=== PATIENT | female | born 1950 | race Caucasian/White ===

== ENCOUNTER → 2017-10-08 09:42 | Outpatient (CLI) | payer BC, SELFPAY ==
--- NOTE | 2017-10-08 09:45 | RAD_ITS ---
STUDY: X-RAY - LEFT KNEE REASON FOR EXAM: Female, 66 years old. Medial knee pain. TECHNIQUE: 4 view(s) of the knee. COMPARISON: Comparison is made with prior examination dated July 31, 2017. FINDINGS: The patient is status post medial unicompartmental arthroplasty. There is good alignment. The soft tissue structures are unremarkable. RAD/Knee 4 or More Views IMPRESSION: Stable appearance of the medial unicompartmental arthroplasty. Electronically Signed: Darryl Soler MD at 15:49 EST Tel [phone], Service support ,
== END ==
PROVIDERS: Family Provider Family Medicine; PCP Family Medicine; Visit Provider Orthopaedic Surgery
DX: M25.562 Pain in left knee (principal)
CPT/HCPCS: 73564

== ENCOUNTER 2017-10-25 09:00 | Outpatient (RCR) | payer BC, SELFPAY ==
--- NOTE | 2017-10-15 08:32 | HP.PTEVAL_ITS ---
Patient's Visit Information ALCIDES BUTT is a 66 year old F referred to Physical Therapy by DO GOSIA Reyze with a diagnosis of Left Knee Pain. Date of Evaluation: 10/15/17 Physical Therapist: Nani Yao - Visit Plan Frequency: 2x /Week Duration: 1 Week Plan: Patient presents s/p left TKR 04/10/17- she has pain in the posterior knee - focus on ROM (extn) and stretching- with strength as needed - Subjective Subjective: Left knee in the back has been tight since July- the last 2 days have been okay but its not good. No radiating pain just tightness. Worst : 10/10 Agg: being on her feet, walking Eases: propping it up and stretching Best: 0/10. X-rays were good- does have a little cement floating but doesn't think its related. 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 Sleep : not disturbed. - Objective Posture: FH, RS. Gait: slightly antalgic- decreased stance on the left LE- poor heel/toe pattern due to decreased ROM. Stairs: asc/desc 8 recip with 2 HR and a poor pattern. HR/TR: able. SLS: 10 sec without LOB. Palpation: tender along posterior knee. ROM: 10-130 degrees. Strength: ankle: 5/5, Knee: 4+/5, Hip: 4+/5 throughout core: fair. Flex: HS: severe, Gastroc: severe - Goals Goal 1:: Patient will be I with HEP and progression Goal Time Frame: 4-6 Weeks Goal 2:: Patient will demo moderate restriction in deficit areas of the left LE Goal Time Frame: 4-6 Weeks Goal 3:: Patient will ambulate >300 feet with a normalized gait pattern Goal Time Frame: 4-6 Weeks Goal 4:: Aniyah will report 0/10 pain for 1 week Goal Time Frame: 4-6 Weeks - Rehabilitation Potential Physical Therapy Diagnosis: Patient presents wtih hypmobility- she has decreased ROM, strength and flexibility leading to abnormal gait and increased pain with ADL's. Rehabilitation Potential: Good - Anticipated Interventions Patient/Client Instruction: Educate patient on: Benefits of Fitness Program For the Purpose of:: To improve performance and independence with ADL's Therapeutic Exercise to Include: Strength training, Endurance training, Balance training, Agility training, Body mechanics, Postural training, Flexibilty training, Gait and locomotor training, Passive ROM, Active ROM, Dynamic Lumbar Stabilization For the Purpose of:: To improve muscle performance and motor function TENS: Yes Cryotherapy (ice pack, ice massage): Yes Thermo therapy (hot pack): Yes Ultrasound (thermal/non thermal): No For the Purpose of:: To decrease pain, To decrease swelling/inflammation Thank you for the opportunity to evaluate your patient. For Medicare and Medicare HMO plans, please review the plan of care and approve it. It will need to be FAXED BACK to us at [phone] for Medicare purposes. Please let me know if there are questions or concerns regarding this plan of care. Physician Signature: Date:
--- NOTE | 2017-12-31 14:16 | HP.PT.NRP ---
HP - Discharge Summary (1) - Patient Information ALCIDES BUTT was seen in my office for initial evaluation on 10/15/17. The following Plan of Care was established for this patient: Initial Frequency: 2x /Week Initial Duration: 1 Week - Anticipated Interventions Patient/Client Instruction: Educate patient on: Benefits of Fitness Program For the Purpose of:: To improve performance and independence with ADL's Therapeutic Exercise to Include: Strength training, Endurance training, Balance training, Agility training, Body mechanics, Postural training, Flexibilty training, Gait and locomotor training, Passive ROM, Active ROM, Dynamic Lumbar Stabilization For the Purpose of:: To improve muscle performance and motor function TENS: Yes Cryotherapy (ice pack, ice massage): Yes Thermo therapy (hot pack): Yes Ultrasound (thermal/non thermal): No For the Purpose of:: To decrease pain, To decrease swelling/inflammation This patient was last seen in our office . Pertinent comments regarding their Physical therapy will appear below: Patient has not returned for 60 days and is appropriate for discharge. Return to MD for further evaluation as needed. At this point I will be discontinuing this patient from physical therapy. I would be happy to see this patient again in the future if found appropriate by the physician. Thank you! Nani Yao
== END 2017-10-25 19:00 | disposition home or self-care (01) ==
LOC: PT 09:00
PROVIDERS: Family Provider Family Medicine; PCP Family Medicine; Visit Provider Orthopaedic Surgery
DX: M70.52 Other bursitis of knee, left knee (principal)
CPT/HCPCS: 97110; 97161

== ENCOUNTER → 2018-03-13 11:17 | Outpatient (CLI) | payer MEDICARE, BC, SELFPAY ==
--- NOTE | 2018-03-13 11:24 | BD_ITS ---
STUDY: DUAL ENERGY X-RAY ABSORPTIOMETRY / DXA REASON FOR EXAM: Female, 67 years old. The patient is postmenopausal. Loss of height. TECHNIQUE: Bone Mineral Density (BMD) measurements of lumbar spine and bilateral hips were obtained. COMPARISON: Comparison is made with prior study dated November 11, 2015. FINDINGS: Lumbar Spine (L1-L4): g/cm2 (0.842) / T-score (-2.7) / Z-score (-1.1) Findings are suggestive of osteoporosis with a high fracture risk. Left Femur Total: g/cm2 (0.762) / T-score (-1.9) / Z-score (-0.6) Left Femoral Neck: g/cm2 (0.693) / T-score (-2.5) / Z-score (-0.9) Right Femur Total: g/cm2 (0.781) / T-score (-1.8) / Z-score (-0.5) Right Femoral Neck: g/cm2 (0.694) / T-score (-2.5) / Z-score (-0.9) The T-Scores on the most recent prior examination were: Lumbar Spine (L1-L4): There has been worsening of bone density since the previous examination. Left Femur Total: which represents a worsening of 5.3%. Right Femur Total: which represents a worsening of 0.5%. BD/Dexa Bone Density Study IMPRESSION: The patient is considered osteoporotic as outlined below according to World [employer] (WHO) criteria with a high fracture risk. There has been worsening of bone density since the previous examination. Reference Information: The T-score is the number of standard deviations above or below the standard which is normal for young adults at their peak bone mineral density. The World Health Organization (WHO) interprets the T-scores as follows: Above -1 Normal bone density Between -1 and -2.5 Osteopenia Equal to / or below -2.5 Osteoporosis As a practical clinical guideline, osteopenia may be graded as follows: Mild -1 through -1.5 Moderate -1.6 through -2.0 Severe -2.1 through -2.4 The Z-score is the number of standard deviations above or below age-matched controls. A Z-score of less than -1.5 would be considered abnormal. References: 1. NIH Osteoporosis and Related Bone Diseases http://www.osteo.org 2. International Society for Clinical Densitometry http://www.iscd.org 3. National Osteoporosis Foundation http://www.nof.org Electronically Signed: Darryl Soler MD at 14:48 EDT Tel [phone], Service support ,
--- NOTE | 2018-03-13 11:24 | BI_ITS ---
MAMMOGRAPHY - BILATERAL SCREENING REASON FOR EXAM: Female, 67 years old. Routine annual screening examination. PERTINENT HISTORY: Non-contributory. TECHNIQUE: Digital bilateral breast tiburcio (3D mammographic acquisition) in the CC and MLO projections. 2-D mediolateral oblique (MLO) and craniocaudad (CC) views of both breasts were obtained. CAD: Full Field Digital Mammography with Computer Added Detection was performed. COMPARISON: Comparison is made with prior study dated November 10, 2014 and December 16, 2012. FINDINGS: Breast Composition: There are scattered areas of fibroglandular density. There are no dominant masses or suspicious calcifications. No other significant abnormalities are identified. There has been no significant change since the prior study. BI/SCREENING MAMM (CAD), BILAT IMPRESSION: Stable bilateral screening mammogram. Yearly follow-up mammogram recommended. (A) ASSESSMENT CATEGORY: BIRADS Category 1: Negative. A letter regarding these results will be sent to the patient by the facility within 30 days. Approximately 10% of breast cancers are not detected by mammography. A normal mammogram should not delay biopsy of a clinically suspicious abnormality. [id number] Electronically Signed: Darryl Soler MD at 12:53 EDT Tel [phone], Service support ,
== END ==
PROVIDERS: Family Provider Family Medicine; PCP Family Medicine; Visit Provider Obstetrics & Gynecology
DX: Z12.31 Encounter for screening mammogram for malignant neoplasm of breast (principal); Z13.820 Encounter for screening for osteoporosis; M85.89 Other specified disorders of bone density and structure, multiple sites
CPT/HCPCS: 77063; 77067; 77080

== ENCOUNTER → 2018-03-21 09:41 | Outpatient (CLI) | payer MEDICARE, BC, SELFPAY ==
[2018-03-21 11:32] LABS: Calcium,Total 8.9 mg/dL (8.5-10.1)
[2018-03-22 08:56] LABS: Vitamin D,25 Hydroxy 22.3 ng/mL (29.95-100.01)
== END ==
PROVIDERS: Family Provider Family Medicine; PCP Family Medicine; Visit Provider Obstetrics & Gynecology
DX: M81.0 Age-related osteoporosis without current pathological fracture (principal)
CPT/HCPCS: 36415; 82306; 82310

== ENCOUNTER → 2018-05-21 11:40 | Outpatient (CLI) | payer MEDICARE, BC, SELFPAY ==
[2018-05-21 14:51] LABS: Vitamin D,25 Hydroxy 51.2 ng/mL (29.95-100.01)
== END ==
PROVIDERS: Visit Provider Obstetrics & Gynecology
DX: E55.9 Vitamin D deficiency, unspecified (principal)
CPT/HCPCS: 36415; 82306

== ENCOUNTER → 2018-08-15 09:20 | Outpatient (CLI) | payer MEDICARE, BC, SELFPAY ==
[2018-08-15 12:34] LABS: Vitamin D,25 Hydroxy 68.6 ng/mL (29.95-100.01)
[2018-08-15 12:47] LABS: Anion Gap 9 (5-15); BUN 17 mg/dL (7-18); BUN/Creat Ratio 18.9 RATIO (10-20); Calcium,Total 8.5 mg/dL (8.5-10.1); Chloride 106 mmol/L (98-107); Cholesterol 245 mg/dL (200); EST Glomerular Filtration Rate 66 mL/min (>60); Est Glom Filt Rate - Afr Amer 80 mL/min (>60); Glucose 100 mg/dL (74-106); High Density Lipoprotein 48 mg/dL; Sodium Level 141 mmol/L (136-145); Triglycerides 190 mg/dL; Very Low Density Lipoprotein 38 mg/dL (5-40)
== END ==
PROVIDERS: Family Provider Family Medicine; PCP Family Medicine; Visit Provider Family Medicine
DX: I10 Essential (primary) hypertension (principal); E55.9 Vitamin D deficiency, unspecified
CPT/HCPCS: 36415; 80048; 80061; 82306

== ENCOUNTER → 2018-10-10 09:19 | Outpatient (CLI) | payer MEDICARE, BC, SELFPAY ==
[2018-10-10 10:31] LABS: Cholesterol 212 mg/dL (200); High Density Lipoprotein 43 mg/dL; Triglycerides 235 mg/dL; Very Low Density Lipoprotein 47 mg/dL (5-40)
== END ==
PROVIDERS: Family Provider Family Medicine; PCP Family Medicine; Referring Provider Family Medicine; Visit Provider Family Medicine
DX: I10 Essential (primary) hypertension (principal)
CPT/HCPCS: 36415; 80061

== ENCOUNTER → 2018-10-15 10:10 | Outpatient (CLI) | payer MEDICARE, BC, SELFPAY ==
--- NOTE | 2018-10-15 10:17 | RAD_ITS ---
STUDY: X-RAY - LUMBAR SPINE REASON FOR EXAM: Female, 67 years old. Pain TECHNIQUE: 5 view(s) of the lumbar spine were obtained. COMPARISON: 12/08/2016 FINDINGS: There is no evidence of fracture or dislocation in the lumbar spine. The vertebral body heights and disc spaces are well-maintained. There are no significant degenerative changes. RAD/L/S Spine Min 4 Views IMPRESSION: Negative radiographs of the lumbar spine. Electronically Signed: Melvin Kelly, at 21:38 EST Tel , Service support ,
== END ==
PROVIDERS: Family Provider Family Medicine; PCP Family Medicine; Referring Provider Family Medicine; Visit Provider Family Medicine
DX: S39.012A Strain of muscle, fascia and tendon of lower back, initial encounter (principal)
CPT/HCPCS: 72110

== ENCOUNTER → 2019-03-31 | Outpatient (CLI) | payer MEDICARE, BC, SELFPAY ==
[2019-03-31 12:56] LABS: Anion Gap 4 (5-15); BUN 15 mg/dL (7-18); BUN/Creat Ratio 19.1 RATIO (10-20); Calcium,Total 8.6 mg/dL (8.5-10.1); Chloride 111 mmol/L (98-107); Cholesterol 192 mg/dL (200); Creatinine, Serum 0.79 mg/dL (0.55-1.02); EST Glomerular Filtration Rate 77 mL/min (>60); Est Glom Filt Rate - Afr Amer 93 mL/min (>60); Glucose 87 mg/dL (74-106); High Density Lipoprotein 59 mg/dL; Potassium 3.9 mmol/L (3.5-5.1); Sodium Level 144 mmol/L (136-145); Triglycerides 60 mg/dL; Very Low Density Lipoprotein 12 mg/dL (5-40)
== END | disposition home or self-care (01) ==
LOC: MTLAB 11:00
PROVIDERS: Family Provider Family Medicine; PCP Family Medicine; Referring Provider Family Medicine; Visit Provider Family Medicine
DX: I10 Essential (primary) hypertension (principal)
CPT/HCPCS: 36415; 80048; 80061

== ENCOUNTER → 2019-08-27 11:52 | Outpatient (CLI) | payer MEDICARE, BC, SELFPAY ==
--- NOTE | 2019-08-27 11:58 | RAD_ITS ---
STUDY: X-RAY - LEFT KNEE REASON FOR EXAM: Female, 68 years old. Left knee pain, surgery about 2-3 yrs. Ago TECHNIQUE: 4 view(s) of the knee. COMPARISON: Previous study of 10/08/2017 FINDINGS: Status post medial and a arthroplasty changes of the left knee are noted. Implants appear in good position. There is no evidence of implant loosening or new associated fracture or dislocation. There are mild degenerative changes of the patellofemoral compartment. RAD/Knee 4 or More Views IMPRESSION: Status post medial hemiarthroplasty changes noted with implants appearing in good position. There is no evidence of implant loosening or new associated fracture or dislocation. There are mild degenerative changes of the patellofemoral compartment. Findings are stable in the interval. Electronically Signed: Alejandro Catherine MD at 22:45 EST , Service support ,
== END ==
PROVIDERS: Family Provider Family Medicine; PCP Family Medicine; Referring Provider Family Medicine; Visit Provider Family Medicine
DX: M25.562 Pain in left knee (principal)
CPT/HCPCS: 73564

== ENCOUNTER → 2019-12-26 11:05 | Outpatient (CLI) | payer MEDICARE, BC, SELFPAY ==
[2019-12-26 12:52] LABS: Absolute Lymphocyte Count 1.99 X10^3/uL (0.83-4.51); Absolute Neutrophil Count 4.4 X10^3/uL (2.0-7.7); Basophil# 0.04 X10^3/uL; Basophil% 0.5 % (0-1); Eosinophil# 0.22 X10^3/uL; Hematocrit 43.7 % (37-47); Lymphocyte # 1.99 X10^3/ul (4.0); Lymphocyte % 27.3 % (19-41); Mean Corpuscular Hgb 29.6 pg (27.0-32.0); Mean Corpuscular Volume 92.4 fL (81-99); Mean Platelet Vol. 10.1 fl (6.2-12.0); Monocyte# 0.61 X10^3/uL; Monocyte% 8.4 % (0-10); NRBC Flagged by Analyzer 0 % (0-5); Neutrophil % 60.5 % (47-70); Platelet Count 230 K/mm3 (150-450); RBC Distribution Width CV 12.1 % (11.6-14.6); RBC Distribution Width SD 41.4 fl (35.1-43.9); Red Blood Count 4.73 M/mm3 (4.2-5.4); White Blood Count 7.3 K/mm3 (4.4-11.0)
[2019-12-26 13:37] LABS: Anion Gap 5 (5-15); BUN 20 mg/dL (7-18); BUN/Creat Ratio 22.8 RATIO (10-20); Calcium,Total 9.2 mg/dL (8.5-10.1); Chloride 110 mmol/L (98-107); Creatinine, Serum 0.88 mg/dL (0.55-1.02); EST Glomerular Filtration Rate 68 mL/min (>60); Est Glom Filt Rate - Afr Amer 82 mL/min (>60); Free T3 2.6 pg/mL (2.18-3.98); Glucose 105 mg/dL (74-106); Potassium 4.1 mmol/L (3.5-5.1); Sodium Level 142 mmol/L (136-145); T4 Total, Thyroxin 8.9 ug/dL (4.8-13.9); Thyroid Stim Hormone (TSH) 1.54 uIU/mL (0.358-3.74)
== END ==
PROVIDERS: PCP Family Medicine; Visit Provider Family Medicine
DX: R63.5 Abnormal weight gain (principal); R53.83 Other fatigue
CPT/HCPCS: 36415; 80048; 84436; 84443; 84481; 85025

== ENCOUNTER → 2020-10-06 10:53 | Outpatient (CLI) | payer MEDICARE, OTHER, SELFPAY ==
--- NOTE | 2020-10-06 10:59 | RAD_ITS ---
STUDY: X-RAY - LEFT KNEE REASON FOR EXAM: Left knee pain, surgery in 2017. TECHNIQUE: 4 view(s) of the knee. COMPARISON: Radiographs 08/27/2019. FINDINGS: There is osteopenia. Normal visualized distal femur. Normal visualized proximal tibia and fibula. Normal proximal tibiofibular articulation. There is a medial femorotibial unicompartmental arthroplasty without evidence of complication. There is a small intra-articular body in the lateral femorotibial compartment. There are small marginal osteophytes without substantial joint space narrowing of the patellofemoral articulation. The soft tissue structures are unremarkable. RAD/Knee 4 or More Views IMPRESSION: Uncomplicated medial femorotibial unicompartmental arthroplasty. Small marginal osteophytes of the patellofemoral compartment. Small intra-articular body in the lateral femorotibial compartment. Electronically Signed: Larry Rosas MD at 12:42 EST Tel , Service support ,
== END ==
PROVIDERS: PCP Family Medicine; Referring Provider Family Medicine; Visit Provider Family Medicine
DX: M25.562 Pain in left knee (principal)
CPT/HCPCS: 73564

== ENCOUNTER 2021-11-30 14:04 | Outpatient (CLI) | payer MEDICARE, OTHER, SELFPAY ==
[2021-11-30 15:16] LABS: Absolute Lymphocyte Count 1.97 X10^3/uL (0.83-4.51); Absolute Neutrophil Count 4.7 X10^3/uL (2.0-7.7); Basophil# 0.05 X10^3/uL; Basophil% 0.7 % (0-1); Eosinophil# 0.26 X10^3/uL; Eosinophils% 3.5 % (0-5); Hematocrit 43.4 % (37-47); Hemoglobin 14.1 g/dL (12.0-15.0); Lymphocyte # 1.97 X10^3/ul (0.83-4.51); Lymphocyte % 26.6 % (19-41); Mean Corp Hgb Conc 32.5 g/dL (32-36); Mean Corpuscular Hgb 29.4 pg (27.0-32.0); Mean Corpuscular Volume 90.4 fL (81-99); Mean Platelet Vol. 10.1 fl (6.2-12.0); Monocyte# 0.41 X10^3/uL; Monocyte% 5.5 % (0-10); NRBC Flagged by Analyzer 0 % (0-5); Neutrophil % 63.6 % (47-70); Platelet Count 226 K/mm3 (150-450); RBC Distribution Width CV 12.5 % (11.6-14.6); RBC Distribution Width SD 41.2 fl (35.1-43.9); White Blood Count 7.4 K/mm3 (4.4-11.0)
== END 2021-11-30 23:59 | disposition home or self-care (01) ==
LOC: MFPLAB 14:05
PROVIDERS: PCP Family Medicine; Referring Provider Family Medicine; Visit Provider Family Medicine
DX: D64.9 Anemia, unspecified (principal)
CPT/HCPCS: 36415; 85025

== ENCOUNTER → 2022-04-26 | Outpatient (CLI) | payer MEDICARE, OTHER, SELFPAY | END | disposition home or self-care (01) | LOC: LABSPEC 12:15 | PROVIDERS: PCP Family Medicine; Referring Provider Family Medicine; Visit Provider Family Medicine | DX: N39.0 Urinary tract infection, site not specified (principal) | CPT/HCPCS: 87077; 87086; 87088; 87186 ==

== ENCOUNTER → 2022-08-24 | Outpatient (CLI) | payer MEDICARE, OTHER, SELFPAY | END | disposition home or self-care (01) | LOC: LABSPEC 15:18 | PROVIDERS: PCP Family Medicine; Referring Provider Family Medicine; Visit Provider Family Medicine | DX: R10.9 Unspecified abdominal pain (principal) | CPT/HCPCS: 87086; 87088 ==

== ENCOUNTER → 2022-10-03 | Outpatient (CLI) | payer MEDICARE, OTHER, SELFPAY ==
--- NOTE | 2022-10-03 17:00 | RAD_ITS ---
EXAM: XR LUMBOSACRAL SPINE, 4 OR 5 VIEWS CLINICAL INDICATION: LUMBAR STRAIN TECHNIQUE: Frontal, lateral and bilateral oblique views of the lumbar spine. This report was created using [employer] report generation technology. COMPARISON: None. FINDINGS: VERTEBRAE: Unremarkable. Preservation of the normal lumbar lordosis. No significant facet arthropathy. No acute or healing fracture or malalignment. No pars interarticularis defects. DISC SPACES: Relatively mild degenerative changes of the spine at multiple levels for age. SOFT TISSUES: Soft tissues of the abdomen are unremarkable. GASTROINTESTINAL TRACT: Unremarkable as visualized. Included bowel gas pattern is non-obstructive. RAD/L/S Spine Min 4 Views IMPRESSION: No acute or healing fracture or malalignment. No findings to explain the clinical presentation. Electronically Signed: Alvino Marroquin MD at 2:22 EST ,
== END | disposition home or self-care (01) ==
LOC: MTRAD 16:59
PROVIDERS: PCP Family Medicine; Referring Provider Family Medicine; Visit Provider Family Medicine
DX: S39.012A Strain of muscle, fascia and tendon of lower back, initial encounter (principal)
CPT/HCPCS: 72110

== ENCOUNTER 2022-10-11 13:00 | Outpatient (RCR) | payer MEDICARE, OTHER, SELFPAY ==
--- NOTE | 2022-10-05 16:56 | HP.PTEVAL ---
Patient's Visit Information ALCIDES BUTT is a 71 year old F referred to Physical Therapy by Dr. Cindy Larsen MD with a diagnosis of lumbar strain. Date of Evaluation: 10/05/22 Physical Therapist: Emil Henry, EMIL, OCS, CSCS - Visit Plan Frequency: 2x /Week Duration: 4-6 Weeks Plan: 2x/week for 3-6 weeks...as long as pain stays away, treat with mat based LB and pelvic ROM exercises and core strength progressing to I as tolerated. Let EG know if pain returns - Subjective R LBP into buttock for two months starting insidiously. had meds which helped. Cortisone shot 2 days ago which really helped 100% for last two days. No leg symptoms otherwise. Putting pressure on R leg was the issue. Pain was worse walking. Sitting was comfortable. When it was flared up she could not lie on R side. Was getting 3 hours. 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 Works outside when she can. Was pushing through. Basic aDLs are good. - Pain LBP Pain Intensity (Out of 10): 0 Pain Intensity Range: 0, 9 - Objective Walks into PT easily and I, transfers bed adn chair without pain. Steps reciprocal with one rail easily. Poor pelvic movement, Lumbar movement max limited ext and flexion without pain, SB min limited without pain. psoas and quads mod tight. No pain with PA pressure lumbar or thoracic. reflexes 2./3 patella adn achilles. LE AROM WFL hips knees and ankles. sensation LE WNL to gross light touch. Strength hip ext 3, abd 3+, flexion 3+, kneeflex/ext 4- and ankles 4 b without myotomal abnormalities - Balance/Special Test Scores Oswestry Low Back Score: 12 - Goals Goal 1:: I approp HEP of core strength, ROM pelvis and spine and psoas stretches to manage condition. Goal Time Frame: 4-6 Weeks Goal 2:: Patient maintain no pain for 3 weeks Goal Time Frame: 4-6 Weeks Goal 3:: Pt feel 100% back to normal with activities and no fear of relapse Goal Time Frame: 4-6 Weeks Goal 4:: oswestry score 3 or better Goal Time Frame: 4-6 Weeks - Rehabilitation Potential Physical Therapy Diagnosis: lumbar strain improved with injection, weakness and tightness may have contributed. Rehabilitation Potential: Fair - Anticipated Interventions Patient/Client Instruction: Educate patient on: Condition, Plan of Care For the Purpose of:: To decrease pain, To increase ROM, To improve nutrient delivery to tissue, To improve muscle performance and motor function, To increase tolerance to activity/condition/position Therapeutic Exercise to Include: Strength training, Flexibilty training, Passive ROM, Active ROM, Dynamic Lumbar Stabilization For the Purpose of:: To decrease pain, To increase ROM, To improve nutrient delivery to tissue, To improve muscle performance and motor function, To increase tolerance to activity/condition/position Manual Therapy Techniques to Include: Mobilization, Soft tissue mobilization For the Purpose of:: To decrease pain, To increase ROM, To improve nutrient delivery to tissue Thank you for the opportunity to evaluate your patient. For Medicare and Medicare HMO plans, please review the plan of care and approve it. It will need to be FAXED BACK to us at [phone] for Medicare purposes. For Medicare only, by signing this I certify the plan of care. Please let me know if there are questions or concerns regarding this plan of care. Physician Signature: Date:
--- NOTE | 2022-10-19 15:52 | HP.PT.NRP ---
ALCIDES BUTT was seen in my office for initial evaluation on 10/05/22. The following Plan of Care was established for this patient: Initial Frequency: 2x /Week Initial Duration: 4-6 Weeks Patient/Client Instruction: Educate patient on: Condition, Plan of Care For the Purpose of:: To decrease pain, To increase ROM, To improve nutrient delivery to tissue, To improve muscle performance and motor function, To increase tolerance to activity/condition/position Therapeutic Exercise to Include: Strength training, Flexibilty training, Passive ROM, Active ROM, Dynamic Lumbar Stabilization For the Purpose of:: To decrease pain, To increase ROM, To improve nutrient delivery to tissue, To improve muscle performance and motor function, To increase tolerance to activity/condition/position Manual Therapy Techniques to Include: Mobilization, Soft tissue mobilization For the Purpose of:: To decrease pain, To increase ROM, To improve nutrient delivery to tissue This patient was last seen in our office 10/11/22. Pertinent comments regarding their Physical therapy will appear below: Pt seen 2 visits of POC and was feeling best she had in months, stretches really helped. She has called to cancel the rest of her visits as she is feeling better. At this point I will be discontinuing this patient from physical therapy. I would be happy to see this patient again in the future if found appropriate by the physician. Thank you! Emil Henry, DPT, OCS, CSCS Balance/Gait/Functional tests - Balance/Special Test Scores Oswestry Low Back Score: 12
== END 2022-10-11 19:00 | disposition home or self-care (01) ==
LOC: PT 13:00
PROVIDERS: PCP Family Medicine; Referring Provider Family Medicine; Visit Provider Family Medicine
DX: S39.012A Strain of muscle, fascia and tendon of lower back, initial encounter (principal)
CPT/HCPCS: 97110; 97161

== ENCOUNTER 2023-07-10 18:13 | Emergency (ER) | payer MEDICARE, OTHER, SELFPAY ==
[2023-07-10 18:14] VITALS: BP 148/65; PULSE 108; RESP 18; TEMP 36.7; O2SAT 96; BMI 25.9
--- NOTE | 2023-07-10 18:29 | EKG12_ITS ---
Test Reason : DYSRHYTHMIA Blood Pressure : / mmHG Vent. Rate : 102 BPM Atrial Rate : 102 BPM P-R Int : 178 ms QRS Dur : 074 ms QT Int : 310 ms P-R-T Axes : 043 028 052 degrees QTc Int : 404 ms Sinus tachycardia with Premature supraventricular complexes Otherwise normal ECG Confirmed by JOANIE NAM MD ([id number]), production editor JORDIN VALENZUELA ([id number]) on 07/12/2023 9:19:42 AM Also confirmed by JOANIE NAM MD ([id number]), production editor JORDIN VALENZUELA ([id number]) on 07/16/2023 11:03:15 AM Referred By: Confirmed By:JOANIE NAM MD
--- NOTE | 2023-07-10 18:31 | EDS_ITS ---
HPI History of Present Illness Chief Complaint: Weakness Narrative Narrative: 72-year-old female has had 3 days of generalized weakness. She states she is mostly wanted to lie down in bed. She vomited once this morning and had 2 episodes of nonbloody diarrhea. She does not feel nauseated now and is tolerated eating and drinking since then. She denies cough or congestion, chest pain, shortness of breath, abdominal or flank pain, or urinary symptoms. Today she got up to answer the phone and felt weak and slid down onto her bottom and called EMS. Denies head injury or LOC. She states the only medication she uses is eyedrops for history of a retinal tear. PFSH [facility] Medical History Ejection fraction < 50% Hypertension manipulation under anesthesia Home Medications lisinopril 10 mg tablet 5 mg PO DAILY 05/14/16 [History Last Taken 04/10/17 05:30 5 MG] Allergy/AdvReac Type Severity Reaction Status Date / Time morphine AdvReac Vomiting Verified 07/10/23 18:14 Family History Mother Hypertension Surgical History H/O hysterectomy for benign disease History of tonsillectomy History of total left knee replacement History of total right knee replacement Hx of cholecystectomy retina detachment of right eye S/P appendectomy Social History (Updated 10/11/17 @ 11:06 by Manuel Cornejo DO) Smoking Status: Never smoker ROS ROS ED ROS Narrative Constitutional: Negative for fever, chills. ENT: Negative for sore throat, rhinorrhea. CVS: Negative for palpitations, chest pain, syncope. Respiratory: Negative for shortness of breath, cough. GI: Positive for nausea, vomiting, diarrhea. Negative for abdominal pain, constipation, melena, hematochezia. : Negative for dysuria, hematuria or frequency. Neuro: Negative for headache. EXAM Physical Exam Narrative Exam Narrative: CONST: Patient sitting in no acute distress. EYES: Normal inspection. NECK: Normal inspection. RESP: No respiratory distress, CTAB. CVS: Tachycardic around 105 bpm with regular rhythm, no murmur, no gallop. ABD: Soft and nontender, no guarding or rebound, nondistended. SKIN: Color normal, no rash, warm, dry, intact. EXTREMITIES: Normal appearance, no pedal edema. NEURO: Oriented x4. PSYCH: Normal affect. Const Vital Signs: 07/10/23 18:14 07/10/23 18:24 Temperature 98.0 F Temperature Source Oral Pulse Rate 108 H Respiratory Rate 18 Respiratory Effort Normal Non-Labored Respiratory Pattern Normal Blood Pressure 148/65 H Blood Pressure Mean 92 Pulse Ox 96 Oxygen Delivery Method Room Air [facility] Lab Data Attestation: I reviewed the patient's lab results. Labs: Laboratory Results - last 24 hr 07/10/23 18:21 WBC 13.8 H RBC 4.78 Hgb 14.1 Hct 43.5 MCV 91.0 MCH 29.5 MCHC 32.4 RDW Std Deviation 41.9 RDW Coeff of Darnell 12.5 Plt Count 195 MPV 10.4 Immature Gran % (Auto) 0.600 Neut % (Auto) 79.8 H Lymph % (Auto) 9.6 L Fergus % (Auto) 9.6 Eos % (Auto) 0.1 Baso % (Auto) 0.3 Absolute Neuts (auto) 11.0 H Absolute Lymphs (auto) 1.33 Nucleated RBC % 0 EKG Initial EKG: Attestation: I personally reviewed and interpreted this EKG as follows: Interpretation: No Acute Injury Pattern and Sinus Tachycardia Comments: Sinus tachycardia at 102 bpm with premature supraventricular complexes No acute ischemic changes Discharge Plan Triage Chief Complaint: Weakness ED Midlevel Provider: [facility] ED Provider: Provider,Ed Physician Dx/Rx/DC Orders Prescriptions: No Action lisinopril 10 MG tablet 5 mg PO DAILY Primary Care Provider: Braulio Huang Referrals: Braulio Huang MD [Primary Care Provider] -
--- NOTE | 2023-07-10 18:31 | EX.ED.DYSGE1 ---
HPI <ALEJANDRO Payne - Last Filed: 07/10/23 20:24> History of Present Illness Chief Complaint: Weakness Narrative Narrative: 72-year-old female has had 3 days of generalized weakness. She states she is mostly wanted to lie down in bed. She vomited once this morning and had 2 episodes of nonbloody diarrhea. She does not feel nauseated now and is tolerated eating and drinking since then. She denies cough or congestion, chest pain, shortness of breath, abdominal or flank pain, or urinary symptoms. Today she got up to answer the phone and felt weak and slid down onto her bottom and called EMS. Denies head injury or LOC. She states the only medication she uses is eyedrops for history of a retinal tear. PFSH <ALEJANDRO Payne - Last Filed: 07/10/23 20:24> PFS Medical History (Updated 07/10/23 @ 20:24 by ALEJANDRO Payne) Ejection fraction < 50% Hypertension manipulation under anesthesia Home Medications cephalexin 500 mg capsule 500 mg PO BID 7 days #14 caps 07/10/23 [Rx Last Taken Unknown] prednisolone acetate 1 % eye drops,suspension 1 drp ophthalmic (eye) TID 07/10/23 [History Last Taken Unknown] Allergy/AdvReac Type Severity Reaction Status Date / Time morphine AdvReac Vomiting Verified 07/10/23 18:14 Family History Mother Hypertension Surgical History H/O hysterectomy for benign disease History of tonsillectomy History of total left knee replacement History of total right knee replacement Hx of cholecystectomy retina detachment of right eye S/P appendectomy Social History (Updated 10/11/17 @ 11:06 by Manuel Cornejo DO) Smoking Status: Never smoker ROS <ALEJANDRO Payne - Last Filed: 07/10/23 20:24> ROS ED ROS Narrative Constitutional: Negative for fever, chills. ENT: Negative for sore throat, rhinorrhea. CVS: Negative for palpitations, chest pain, syncope. Respiratory: Negative for shortness of breath, cough. GI: Positive for nausea, vomiting, diarrhea. Negative for abdominal pain, constipation, melena, hematochezia. : Negative for dysuria, hematuria or frequency. Neuro: Negative for headache. EXAM <ALEJANDRO Payne - Last Filed: 07/10/23 20:24> Physical Exam Narrative Exam Narrative: CONST: Patient sitting in no acute distress. EYES: Normal inspection. NECK: Normal inspection. RESP: No respiratory distress, CTAB. CVS: Tachycardic around 105 bpm with regular rhythm, no murmur, no gallop. ABD: Soft and nontender, no guarding or rebound, nondistended. SKIN: Color normal, no rash, warm, dry, intact. EXTREMITIES: Normal appearance, no pedal edema. NEURO: Oriented x4. PSYCH: Normal affect. Const Vital Signs: 07/10/23 18:14 07/10/23 18:24 07/10/23 21:13 Temperature 98.0 F Temperature Source Oral Pulse Rate 108 H 80 Respiratory Rate 18 18 Respiratory Effort Normal Non-Labored Respiratory Pattern Normal Blood Pressure 148/65 H 120/65 Blood Pressure Mean 92 83 Pulse Ox 96 97 Oxygen Delivery Method Room Air <Dr. Jaxson Pizano, - Last Filed: 07/10/23 23:04> Physical Exam Const Vital Signs: 07/10/23 18:14 07/10/23 18:24 07/10/23 21:13 Temperature 98.0 F Temperature Source Oral Pulse Rate 108 H 80 Respiratory Rate 18 18 Respiratory Effort Normal Non-Labored Respiratory Pattern Normal Blood Pressure 148/65 H 120/65 Blood Pressure Mean 92 83 Pulse Ox 96 97 Oxygen Delivery Method Room Air MDM <ALEJANDRO Payne - Last Filed: 07/10/23 20:24> [facility] Narrative Medical decision making narrative: History gathered from: Patient and family member Patient has had 3 days of generalized weakness. She had 1 episode of emesis and 2 episodes of diarrhea. She appears well and nontoxic. HR is 108 with otherwise normal vital signs. Other than mild tachycardia her exam is unremarkable. Labs show white count of 13.8. BMP shows sodium 134, BUN 25, creatinine 1.27 slightly elevated from previous 0.88. Glucose is 151 with normal CO2 and anion gap. EKG is nonischemic and troponin is 6. CXR shows no acute process. UA positive for UTI and it was cultured and treated with Rocephin. Patient feels better after fluids and was able to ambulate independently to the ED and would like to go home on outpatient antibiotics which I feel is reasonable. I prescribed Keflex with return precautions and she was discharged in stable condition. Lab Data Attestation: I reviewed the patient's lab results. Labs: Laboratory Results - last 24 hr 07/10/23 07/10/23 18:21 19:45 WBC 13.8 H RBC 4.78 Hgb 14.1 Hct 43.5 MCV 91.0 MCH 29.5 MCHC 32.4 RDW Std Deviation 41.9 RDW Coeff of [place]arnell 12.5 Plt Count 195 MPV 10.4 Immature Gran % (Auto) 0.600 Neut % (Auto) 79.8 H Lymph % (Auto) 9.6 L [place] % (Auto) 9.6 Eos % (Auto) 0.1 Baso % (Auto) 0.3 Absolute Neuts (auto) 11.0 H Absolute Lymphs (auto) 1.33 Nucleated RBC % 0 Sodium 134 L Potassium 3.6 Chloride 102 Carbon Dioxide 26.0 Anion Gap 6 BUN 25 H Creatinine 1.27 H Estim Creat Clear Calc 31.67 Est GFR (MDRD) Af Amer 53 L Est GFR (MDRD) Non-Af 44 L BUN/Creatinine Ratio 19.7 Glucose 151 H Calcium 9.1 Troponin I High Sens 6 Urine Color Yellow Urine Clarity Cloudy Urine pH 5.0 Ur Specific [place] 1.020 Urine Protein 100 H Urine Glucose (UA) Normal Urine Ketones 5 H Urine Occult Blood 150 H Urine Nitrite Positive H Urine Bilirubin Negative Urine Urobilinogen Normal Ur Leukocyte Esterase 500 H Urine RBC 0 SEEN Urine WBC 50-100 SEEN Ur Squamous Epith Cells 0-5 SEEN Urine Bacteria 2+ Urine Mucus 0 SEEN Radiography Diagnostic Testing: Clinical Impression(s) from Imaging Studies Chest X-Ray 07/10/23 18:44 IMPRESSION: No radiographic evidence of acute cardiopulmonary disease. Electronically Signed: Lilly Younger MD at 19:03 EST Reading Location ID and State: [id number] / Tel , Service support , ED attending interpretation of 1-view chest x-ray shows normal heart size, no acute infiltrate, edema, or effusion. EKG Initial EKG: Attestation: I personally reviewed and interpreted this EKG as follows: Interpretation: No Acute Injury Pattern and Sinus Tachycardia Comments: Sinus tachycardia at 102 bpm with premature supraventricular complexes No acute ischemic changes <Dr. Jaxson Pizano, DO - Last Filed: 07/10/23 23:04> [facility] Lab Data Labs: Laboratory Results - last 24 hr 07/10/23 07/10/23 18:21 19:45 WBC 13.8 H RBC 4.78 Hgb 14.1 Hct 43.5 MCV 91.0 MCH 29.5 MCHC 32.4 RDW Std Deviation 41.9 RDW Coeff of [place] 12.5 Plt Count 195 MPV 10.4 Immature Gran % (Auto) 0.600 Neut % (Auto) 79.8 H Lymph % (Auto) 9.6 L [place] % (Auto) 9.6 Eos % (Auto) 0.1 Baso % (Auto) 0.3 Absolute Neuts (auto) 11.0 H Absolute Lymphs (auto) 1.33 Nucleated RBC % 0 Sodium 134 L Potassium 3.6 Chloride 102 Carbon Dioxide 26.0 Anion Gap 6 BUN 25 H Creatinine 1.27 H Estim Creat Clear Calc 31.67 Est GFR (MDRD) Af Amer 53 L Est GFR (MDRD) Non-Af 44 L BUN/Creatinine Ratio 19.7 Glucose 151 H Calcium 9.1 Troponin I High Sens 6 Urine Color Yellow Urine Clarity Cloudy Urine pH 5.0 Ur Specific [place] 1.020 Urine Protein 100 H Urine Glucose (UA) Normal Urine Ketones 5 H Urine Occult Blood 150 H Urine Nitrite Positive H Urine Bilirubin Negative Urine Urobilinogen Normal Ur Leukocyte Esterase 500 H Urine RBC 0 SEEN Urine WBC 50-100 SEEN Ur Squamous Epith Cells 0-5 SEEN Urine Bacteria 2+ Urine Mucus 0 SEEN Radiography Diagnostic Testing: Clinical Impression(s) from Imaging Studies Chest X-Ray 07/10/23 18:44 IMPRESSION: No radiographic evidence of acute cardiopulmonary disease. Electronically Signed: Lilly Younger MD at 19:03 EST Reading Location ID and State: [id number] / Tel , Service support , Treatment and Re-Evaluation :: ED attending note: I evaluated the patient in conjunction with the ASHLEY. I agree with his/her statements and above findings. I have personally performed a face to face assessment of the patient and have reviewed the ASHLEY Note. I performed a substantive portion of the visit including all aspects of the following. I personally saw the patient performed chart review, physical exam, reviewed labs, imaging (if obtained), and formulated a treatment and management plan. 72-year-old female here with diffuse weakness. No focal deficits. Patient was hemodynamically stable, afebrile and nontoxic-appearing. Workup showed evidence of UTI. Will give antibiotics and strict return precautions. Shared decision making: I will have a discussion with the patient and or visitors regarding risk/benefits of further testing or admission. They will be made aware of of the risk/benefits inherent in this decision they will be given the opportunity to voice understanding. Discharge Plan Triage Chief Complaint: Weakness ED Midlevel Provider: Che Brown ED Provider: Jaxson Pizano Dx/Rx/DC Orders Clinical Impression: Acute UTI, Generalized weakness Instructions: Urinary Tract Infections in Women Prescriptions: New cephalexin 500 mg capsule 500 mg PO BID 7 Days Qty: 14 0RF No Action prednisolone acetate 1 % drops,suspension 1 drp ophthalmic (eye) TID Patient Comments: INSTILL 1 DROP INTO LEFT EYE 3 TIMES A DAY Primary Care Provider: Braulio Huang Referrals: Braulio Huang MD [Primary Care Provider] - Activity Restrictions/Additional Instructions: Stay hydrated and take the antibiotics as instructed. If symptoms worsen such as fever, worsening weakness, come back to the ER Disposition Disposition: Home, Self Care Discharge Date/Time: 07/10/23 21:21
[2023-07-10] MEDS: 0.9% Normal Saline (1000mL) 1,000 ML 999 ML IV (18:37)
[2023-07-10 18:42] LABS: Absolute Lymphocyte Count 1.33 X10^3/uL (0.83-4.51); Basophil# 0.04 X10^3/uL; Basophil% 0.3 % (0-1); Eosinophil# 0.01 X10^3/uL; Eosinophils% 0.1 % (0-5); Hematocrit 43.5 % (37-47); Hemoglobin 14.1 g/dL (12.0-15.0); Lymphocyte # 1.33 X10^3/ul (0.83-4.51); Lymphocyte % 9.6 % (19-41); Mean Corp Hgb Conc 32.4 g/dL (32-36); Mean Corpuscular Hgb 29.5 pg (27.0-32.0); Mean Platelet Vol. 10.4 fl (6.2-12.0); Monocyte# 1.32 X10^3/uL; Monocyte% 9.6 % (0-10); NRBC Flagged by Analyzer 0 % (0-5); Neutrophil # 11.02 X10^3/uL (2.7-7.7); Neutrophil % 79.8 % (47-70); Platelet Count 195 K/mm3 (150-450); RBC Distribution Width CV 12.5 % (11.6-14.6); RBC Distribution Width SD 41.9 fl (35.1-43.9); Red Blood Count 4.78 M/mm3 (4.2-5.4); White Blood Count 13.8 K/mm3 (4.4-11.0)
--- NOTE | 2023-07-10 18:44 | RAD_ITS ---
INDICATION: weakness EXAMINATION/TECHNIQUE: X-RAY - XR Chest 1 View COMPARISON: CT chest 02/03/2016. FINDINGS: LINES/DEVICES: None. LUNGS: No consolidation, edema or effusion. No pneumothorax. MEDIASTINUM AND CARDIOVASCULAR STRUCTURES: Cardiac silhouette not enlarged. Central airways and mediastinal contour are unremarkable. BONES AND SOFT TISSUES: Unremarkable. RAD/Chest 1 View (Portable) IMPRESSION: No radiographic evidence of acute cardiopulmonary disease. Electronically Signed: Lilly Younger MD at 19:03 EST Reading Location ID and State: [id number] / Tel , Service support ,
[2023-07-10 19:31] LABS: Anion Gap 6 (5-15); BUN 25 mg/dL (7-18); BUN/Creat Ratio 19.7 RATIO (10-20); Calcium,Total 9.1 mg/dL (8.5-10.1); Chloride 102 mmol/L (98-107); Creatinine, Serum 1.27 mg/dL (0.55-1.02); EST Glomerular Filtration Rate 44 mL/min (>60); Est Glom Filt Rate - Afr Amer 53 mL/min (>60); Estimated Creatinine Clearance 31.67 ml/min; Glucose 151 mg/dL (74-106); Potassium 3.6 mmol/L (3.5-5.1); Sodium Level 134 mmol/L (136-145); Troponin-I HS 6 pg/mL (3.0-54.0)
[2023-07-10 19:52] LABS: Mucous, Urine 0 SEEN /hpf (<or=2+); Red Blood Cells-Urine 0 SEEN /hpf (0-5)
[2023-07-10 19:53] LABS: Color, Urine Yellow (Yellow); Glucose, Dipstick Normal (Normal); Ketone-Dipstick 5 mg/dl (Negative); Leukocyte Esterase-Dipstick 500 /ul (Negative); Nitrite-Dipstick Positive (Negative); Occult Blood-Urine 150 /ul (Negative); Protein-Dipstick 100 mg/dl (Negative); Urine Bilirubin Dipstick Negative (Negative); Urine Clarity Cloudy (Clear); Urine Urobilinogen Normal (Normal)
[2023-07-10 20:14] LABS: Squamous Epithelial Cells - UA 0-5 SEEN /hpf (5-10); White Blood Cells 50-100 SEEN /hpf (0-5)
[2023-07-10 20:15] LABS: Bacteria 2+ /hpf (None Seen)
[2023-07-10] MEDS: Ceftriaxone 1 GM/50 ML BAG IV (21:12)
[2023-07-10 21:13] VITALS: BP 120/65; PULSE 80; RESP 18; O2SAT 97
== END 2023-07-10 21:21 | disposition home or self-care (01) ==
PROVIDERS: Physician Assistant; Emergency Provider Emergency Medicine; PCP Family Medicine; Visit Provider Emergency Medicine
DX: R53.1 Weakness (principal); N39.0 Urinary tract infection, site not specified; I10 Essential (primary) hypertension; Z90.710 Acquired absence of both cervix and uterus; Z96.653 Presence of artificial knee joint, bilateral; Z90.49 Acquired absence of other specified parts of digestive tract
CPT/HCPCS: 71045; 80048; 81001; 84484; 85025; 87077; 87086; 87088; 87186; 87428; 93005; 96361; 96374; 99285; J7030; A4216

== ENCOUNTER 2023-07-20 09:51 | Emergency (ER) | payer MEDICARE, OTHER, SELFPAY ==
[2023-07-20 09:51] VITALS: BP 127/78; PULSE 84; RESP 14; TEMP 36.8; O2SAT 100; BMI 24.0
--- NOTE | 2023-07-20 10:08 | CT_ITS ---
STUDY: CT ABDOMEN AND PELVIS WITHOUT CONTRAST REASON FOR EXAM: Female, 72 years old. Pain L flank RADIATION DOSAGE (If Supplied By Facility): CTDIvol = ( 6.34 ) mGy, DLP = ( 285.02 ) mGycm TECHNIQUE: Transaxial images were obtained from the dome of the diaphragm to the symphysis pubis without oral contrast, and without intravenous contrast. Sagittal and coronal images were reconstructed. Individualized dose optimization techniques were used for this CT. COMPARISON: Comparison is made with prior study dated April 29, 2012. FINDINGS: The visualized lung bases are unremarkable. The visualized portions of the heart are within normal limits. Normal liver. The patient is status post cholecystectomy. Normal spleen. Normal pancreas. Normal bilateral adrenal glands. Normal right kidney. Punctate nonobstructive calculus in the midpole calyx of the left kidney. There is a small hiatal hernia. Normal small intestine. There are scattered colonic diverticula consistent with diverticulosis. There is non-visualization of the appendix. There is scattered atherosclerotic calcification of the abdominal aorta, without a demonstrated aneurysm. Normal inferior vena cava. Normal retroperitoneum. Normal urinary bladder. There is absence of the uterus consistent with a prior hysterectomy. There is a small umbilical hernia containing fat. There are mild degenerative changes of the visualized lumbar spine. CT/Abdomen/Pelvis without Cont IMPRESSION: Punctate nonobstructive calculus in the midpole calyx of left kidney. Scattered sigmoid diverticula. Status post cholecystectomy. Electronically Signed: Darryl Soler MD at 11:02 EST ,
--- NOTE | 2023-07-20 10:09 | EDS_ITS ---
HPI HPI - GI History of Present Illness Chief Complaint: Flank Pain Informant: patient Narrative Narrative: Patient has been having colicky left flank pain for the past week, it became severe overnight. Right now, currently 6/10 not as bad as it was earlier. She states this started a week ago, and she was having some chills, and her urine was dark. She was seen here and diagnosed with a urine infection put on an antibiotic, saw her PCP the antibiotic was changed to Bactrim which she currently is on and still having issues. No urinary symptoms such as dysuria, frequency, hematuria that she notes. Sometimes the pain radiates into her left back. She has had some severe nausea overnight but no vomiting. She felt chills at the beginning of all of this but no recent fevers or chills. No cough, shortness of breath, other symptoms. States she has had kidney stones in the past, states this feels like that type of pain, she has never required any procedures or surgery to remove the stone. [facility] Medical History (Updated 07/20/23 @ 12:[address] Leonard Romero MD) Ejection fraction < 50% Hypertension Kidney stones manipulation under anesthesia Osteoarthritis of left knee Home Medications prednisolone acetate 1 % eye drops,suspension 1 drp ophthalmic (eye) TID 07/10/23 [History Last Taken Unknown] ciprofloxacin HCl 500 mg tablet 500 mg PO BID #14 TABLETS 07/20/23 [Rx Last Taken Unknown] hydrocodone-acetaminophen 5-325mg 5mg-325mg 1 tab PO Q6H PRN PRN Pain 3 days #10 TABLETS 07/20/23 [Rx Last Taken Unknown] Allergy/AdvReac Type Severity Reaction Status Date / Time morphine AdvReac Vomiting Verified 07/20/23 09:51 Family History Mother Hypertension Surgical History H/O hysterectomy for benign disease History of tonsillectomy History of total left knee replacement History of total right knee replacement Hx of cholecystectomy retina detachment of right eye S/P appendectomy Social History Smoking Status: Never smoker ROS ROS ED Constitutional Constitutional ED: Denies chills or fever(s) Eyes Eyes: Denies change in vision or diplopia ENT ENT ED: Denies rhinorrhea or sore throat Cardiovascular Cardiovascular: Denies chest pain or palpitations Respiratory/Chest Respiratory/Chest: Denies cough or dyspnea Gastrointestinal Gastrointestinal: Reports abdominal pain and nausea; Denies diarrhea or vomiting Genitourinary Genitourinary ED: Denies dysuria or hematuria Musculoskeletal Musculoskeletal: Reports back pain; Denies neck pain Integumentary Denies abscess or rash Neurologic Neurologic: Denies headache(s), paresthesias or weakness Psychiatric Psychiatric: Denies anxiety or suicidal thoughts EXAM Physical Exam Const Vital Signs: 07/20/23 09:51 Temperature 98.2 F Temperature Source Temporal Pulse Rate 84 Respiratory Rate 14 Blood Pressure 127/78 H Blood Pressure Mean 94 Pulse Ox 100 Oxygen Delivery Method Room Air Positive well nourished and well developed General Appearance ED: well developed and NAD HEENT Reports moist mucous membranes normocephalic and atraumatic Eyes PERRL and EOMs intact bilaterally Neck full ROM and supple Resp normal respiratory effort and clear to auscultation bilaterally Cardio regular rate, regular rhythm and no murmurs GI non-distended GI Narrative: mild ttp lower LLQ, no guarding or rebound, no pulsatile mass. Auscultation: normoactive bowel sounds Palpation: soft Back/Spine no CVA tenderness General Back: other FROM Extremity normal to inspection General Extremety ED: Negative for edema, pulses abnormal or tenderness General Extremity: Negative for edema or pulses abnormal Neuro oriented x3, CN's II-XII intact bilaterally and no sensory deficits noted Sensorium / Orientation: awake and alert Motor Exam: strength 5/5 throughout Skin no rashes or lesions noted and no wounds MDM MDM MDM Narrative Medical decision making narrative: Given that a kidney stone was in the differential here obtained a CT, I reviewed the images and the report which I agree with, it shows a asymptomatic stone in the left kidney but no ureterolithiasis. Urinalysis shows leukocyte esterases but no pyuria, is definitely improved compared with her urinalysis from a week ago, but her kidney function is declining slightly. While working eating for the workup she was given Toradol 10 mg and she is pain-free and feels great. She prefers not to be admitted when I discussed that, I am fine with that. I discussed with her PCP given her declining kidney function, we mutually decided it would be best to change her Bactrim to Cipro to which the Klebsiella infection is also sensitive. We will cover her for pyelonephritis here and she is comfortable following up after the weekend for repeat kidney function. Will offer her a prescription for analgesics as well. Lab Data Attestation: I reviewed the patient's lab results. Labs: Laboratory Results - last 24 hr 07/20/23 07/20/23 10:15 11:05 WBC 12.0 H RBC 5.19 Hgb 14.7 Hct 46.4 MCV 89.4 MCH 28.3 MCHC 31.7 L RDW Std Deviation 40.9 RDW Coeff of Darnell 12.5 Plt Count 364 MPV 10.0 Immature Gran % (Auto) 0.500 Neut % (Auto) 70.9 H Lymph % (Auto) 19.5 [place] % (Auto) 7.9 Eos % (Auto) 0.8 Baso % (Auto) 0.4 Absolute Neuts (auto) 8.5 H Absolute Lymphs (auto) 2.33 Nucleated RBC % 0 Sodium 137 Potassium 3.9 Chloride 102 Carbon Dioxide 28.0 Anion Gap 7 BUN 16 Creatinine 1.56 H Estim Creat Clear Calc 25.78 Est GFR (MDRD) Af Amer 42 L Est GFR (MDRD) Non-Af 35 L BUN/Creatinine Ratio 10.3 Glucose 107 H Calcium 9.1 Urine Color Yellow Urine Clarity Clear Urine pH 6.0 Ur Specific [place] 1.015 Urine Protein 30 H Urine Glucose (UA) Normal Urine Ketones Negative Urine Occult Blood 25 H Urine Nitrite Negative Urine Bilirubin 1 H Urine Urobilinogen Normal Ur Leukocyte Esterase 500 H Urine RBC 0 SEEN Urine WBC 0-5 SEEN Ur Squamous Epith Cells 25-50 SEEN Urine Bacteria 1+ Urine Mucus 0 SEEN Radiography Diagnostic Testing: Clinical Impression(s) from Imaging Studies Abdomen/Pelvis CT 07/20/23 10:08 IMPRESSION: Punctate nonobstructive calculus in the midpole calyx of left kidney. Scattered sigmoid diverticula. Status post cholecystectomy. Electronically Signed: Darryl Soler MD at 11:02 EST , Discharge Plan Triage Chief Complaint: Flank Pain ED Provider: Leonard Romero Dx/Rx/DC Orders Clinical Impression: Acute left flank pain, Acute UTI, Left nephrolithiasis, Acute kidney insufficiency Instructions: ED Pyelonephritis, Female (Adult) Prescriptions: New ciprofloxacin HCl [ciprofloxacin HCl] 500 mg tablet 500 mg PO BID Qty: 14 0RF hydrocodone-acetaminophen [hydrocodone-acetaminophen] 5-325 mg tablet 1 tab PO Q6H PRN PRN (Reason: Pain) 3 Days Qty: 10 0RF Discontinued cephalexin 500 mg capsule 500 mg PO BID 7 Days Qty: 14 0RF No Action prednisolone acetate 1 % drops,suspension 1 drp ophthalmic (eye) TID Patient Comments: INSTILL 1 DROP INTO LEFT EYE 3 TIMES A DAY Primary Care Provider: Braulio Huang Referrals: Barulio Huang MD [Primary Care Provider] - 3-5 Days Disposition Disposition: Home, Self Care
[2023-07-20] MEDS: Ondansetron 4 MG/2 ML Vial IV (10:17)
[2023-07-20] MEDS: Ketorolac 15 MG/ML Vial 10 MG IV (10:17)
[2023-07-20 10:24] LABS: Absolute Lymphocyte Count 2.33 X10^3/uL (0.83-4.51); Absolute Neutrophil Count 8.5 X10^3/uL (2.0-7.7); Basophil# 0.05 X10^3/uL; Basophil% 0.4 % (0-1); Eosinophil# 0.09 X10^3/uL; Eosinophils% 0.8 % (0-5); Hematocrit 46.4 % (37-47); Hemoglobin 14.7 g/dL (12.0-15.0); Lymphocyte # 2.33 X10^3/ul (0.83-4.51); Lymphocyte % 19.5 % (19-41); Mean Corp Hgb Conc 31.7 g/dL (32-36); Mean Corpuscular Hgb 28.3 pg (27.0-32.0); Mean Corpuscular Volume 89.4 fL (81-99); Monocyte# 0.95 X10^3/uL; Monocyte% 7.9 % (0-10); NRBC Flagged by Analyzer 0 % (0-5); Neutrophil # 8.49 X10^3/uL (2.7-7.7); Neutrophil % 70.9 % (47-70); Platelet Count 364 K/mm3 (150-450); RBC Distribution Width CV 12.5 % (11.6-14.6); RBC Distribution Width SD 40.9 fl (35.1-43.9); Red Blood Count 5.19 M/mm3 (4.2-5.4)
[2023-07-20 10:39] LABS: Anion Gap 7 (5-15); BUN 16 mg/dL (7-18); BUN/Creat Ratio 10.3 RATIO (10-20); Calcium,Total 9.1 mg/dL (8.5-10.1); Chloride 102 mmol/L (98-107); Creatinine, Serum 1.56 mg/dL (0.55-1.02); EST Glomerular Filtration Rate 35 mL/min (>60); Est Glom Filt Rate - Afr Amer 42 mL/min (>60); Estimated Creatinine Clearance 25.78 ml/min; Glucose 107 mg/dL (74-106); Potassium 3.9 mmol/L (3.5-5.1); Sodium Level 137 mmol/L (136-145)
[2023-07-20 11:12] LABS: Mucous, Urine 0 SEEN /hpf (<or=2+); Red Blood Cells-Urine 0 SEEN /hpf (0-5)
[2023-07-20 11:28] LABS: Color, Urine Yellow (Yellow); Glucose, Dipstick Normal (Normal); Ketone-Dipstick Negative (Negative); Leukocyte Esterase-Dipstick 500 /ul (Negative); Nitrite-Dipstick Negative (Negative); Occult Blood-Urine 25 /ul (Negative); Protein-Dipstick 30 mg/dl (Negative); Specific Gravity, Urine 1.015 (1.002-1.030); Urine Clarity Clear (Clear); Urine Urobilinogen Normal (Normal)
[2023-07-20 11:30] LABS: Urine Bilirubin Dipstick 1 mg/dL (Negative)
[2023-07-20 11:39] LABS: Bacteria 1+ /hpf (None Seen); Squamous Epithelial Cells - UA 25-50 SEEN /hpf (5-10); White Blood Cells 0-5 SEEN /hpf (0-5)
== END 2023-07-20 12:43 | disposition home or self-care (01) ==
PROVIDERS: Emergency Provider Emergency Medicine; PCP Family Medicine; Visit Provider Emergency Medicine
DX: R10.9 Unspecified abdominal pain (principal); N39.0 Urinary tract infection, site not specified; N20.0 Calculus of kidney; I10 Essential (primary) hypertension; Z90.710 Acquired absence of both cervix and uterus; Z96.653 Presence of artificial knee joint, bilateral; Z90.49 Acquired absence of other specified parts of digestive tract; N28.9 Disorder of kidney and ureter, unspecified
CPT/HCPCS: 74176; 80048; 81001; 85025; 96374; 96375; 99283; A4216; J2405

== ENCOUNTER → 2024-01-16 | Outpatient (CLI) | payer MEDICARE, OTHER, SELFPAY ==
[2024-01-16 18:17] LABS: Anion Gap 5 (5-15); BUN 21 mg/dL (7-18); BUN/Creat Ratio 20.6 RATIO (10-20); Calcium,Total 9.4 mg/dL (8.5-10.1); Chloride 106 mmol/L (98-107); Creatinine, Serum 1.02 mg/dL (0.55-1.02); EST Glomerular Filtration Rate 56 mL/min (>60); Est Glom Filt Rate - Afr Amer 68 mL/min (>60); Glucose 112 mg/dL (74-106); Potassium 4.5 mmol/L (3.5-5.1); Sodium Level 139 mmol/L (136-145)
== END | disposition home or self-care (01) ==
LOC: MFPLAB 15:38
PROVIDERS: PCP Family Medicine; Visit Provider Family Medicine
DX: N28.9 Disorder of kidney and ureter, unspecified (principal)
CPT/HCPCS: 36415; 80048

== ENCOUNTER → 2024-06-19 | Outpatient (CLI) | payer MEDICARE, OTHER, SELFPAY | END | disposition home or self-care (01) | LOC: LABSPEC 15:17 | PROVIDERS: PCP Family Medicine; Referring Provider Family Medicine; Visit Provider Family Medicine | DX: R39.9 Unspecified symptoms and signs involving the genitourinary system (principal) | CPT/HCPCS: 87086; 87088 ==

== ENCOUNTER → 2024-07-16 | Outpatient (CLI) | payer MEDICARE, OTHER, SELFPAY ==
[2024-07-16 17:56] LABS: Absolute Lymphocyte Count 2.31 X10^3/uL (0.83-4.51); Absolute Neutrophil Count 6.8 X10^3/uL (2.0-7.7); Basophil# 0.04 X10^3/uL; Basophil% 0.4 % (0-1); Eosinophil# 0.11 X10^3/uL; Eosinophils% 1.1 % (0-5); Hematocrit 44.8 % (37-47); Hemoglobin 14.3 g/dL (12.0-15.0); Lymphocyte # 2.31 X10^3/ul (0.83-4.51); Lymphocyte % 22.9 % (19-41); Mean Corp Hgb Conc 31.9 g/dL (32-36); Mean Corpuscular Hgb 29.6 pg (27.0-32.0); Mean Corpuscular Volume 92.8 fL (81-99); Mean Platelet Vol. 10.5 fl (6.2-12.0); Monocyte# 0.84 X10^3/uL; Monocyte% 8.3 % (0-10); NRBC Flagged by Analyzer 0 % (0-5); Neutrophil # 6.76 X10^3/uL (2.7-7.7); Platelet Count 262 K/mm3 (150-450); RBC Distribution Width CV 12.7 % (11.6-14.6); Red Blood Count 4.83 M/mm3 (4.2-5.4); White Blood Count 10.1 K/mm3 (4.4-11.0)
[2024-07-16 18:23] LABS: ALB/GLOB Ratio 0.8 RATIO (0.9-2.4); AST(SGOT) 19 U/L (15-37); Alanine Aminotransfer ALT/SGPT 24 U/L (13-56); Albumin, Serum 3.3 g/dL (3.2-5.0); Alkaline Phosphatase 112 U/L (45-117); Anion Gap 6 (5-15); BUN 17 mg/dL (7-18); BUN/Creat Ratio 18.6 RATIO (10-20); Calcium,Total 9.1 mg/dL (8.5-10.1); Chloride 105 mmol/L (98-107); Creatinine, Serum 0.92 mg/dL (0.55-1.02); EST Glomerular Filtration Rate 64 mL/min (>60); Est Glom Filt Rate - Afr Amer 77 mL/min (>60); Globulin 4.3 g/dL (2.2-4.2); Glucose 108 mg/dL (74-106); Potassium 3.9 mmol/L (3.5-5.1); Protein, Total 7.6 g/dL (6.4-8.2); Sodium Level 140 mmol/L (136-145)
== END | disposition home or self-care (01) ==
LOC: MFPLAB 16:27
PROVIDERS: PCP Family Medicine; Referring Provider Nurse Practitioner Family; Visit Provider Nurse Practitioner Family
DX: R10.9 Unspecified abdominal pain (principal)
CPT/HCPCS: 36415; 80053; 85025

== ENCOUNTER → 2024-12-01 | Outpatient (CLI) | payer MEDICARE, OTHER, SELFPAY ==
[2024-12-01 18:24] LABS: Absolute Lymphocyte Count 2.25 X10^3/uL (0.83-4.51); Absolute Neutrophil Count 4.6 X10^3/uL (2.0-7.7); Basophil# 0.04 X10^3/uL; Basophil% 0.5 % (0-1); Eosinophil# 0.21 X10^3/uL; Eosinophils% 2.7 % (0-5); Hematocrit 41.8 % (37-47); Hemoglobin 13.7 g/dL (12.0-15.0); Lymphocyte # 2.25 X10^3/ul (0.83-4.51); Lymphocyte % 28.8 % (19-41); Mean Corp Hgb Conc 32.8 g/dL (32-36); Mean Corpuscular Hgb 30.1 pg (27.0-32.0); Mean Corpuscular Volume 91.9 fL (81-99); Mean Platelet Vol. 10.8 fl (6.2-12.0); Monocyte# 0.71 X10^3/uL; Monocyte% 9.1 % (0-10); NRBC Flagged by Analyzer 0 % (0-5); Neutrophil # 4.58 X10^3/uL (2.7-7.7); Neutrophil % 58.5 % (47-70); Platelet Count 237 K/mm3 (150-450); RBC Distribution Width CV 12.2 % (11.6-14.6); RBC Distribution Width SD 41.1 fl (35.1-43.9); Red Blood Count 4.55 M/mm3 (4.2-5.4); White Blood Count 7.8 K/mm3 (4.4-11.0)
[2024-12-01 19:41] LABS: ALB/GLOB Ratio 1.4 RATIO (0.9-2.4); AST(SGOT) 19 U/L (<=31); Alanine Aminotransfer ALT/SGPT 14 U/L (<=34); Albumin, Serum 3.9 g/dL (3.4-4.8); Alkaline Phosphatase 102 U/L (35-104); Anion Gap 10 (5-15); BUN 16 mg/dL (4-19); BUN/Creat Ratio 18.1 RATIO (10-20); Calcium,Total 9.2 mg/dL (7.6-11.0); Carbon Dioxide 25.9 mmol/L (21.0-32.0); Chloride 107 mmol/L (98-108); EST Glomerular Filtration Rate 67 (>60); Globulin 2.9 g/dL (2.2-4.2); Glucose 93 mg/dL (70-99); Potassium 4.3 mmol/L (3.3-5.1); Protein, Total 6.7 g/dL (5.9-8.4); Sodium Level 143 mmol/L (133-145); Total Bilirubin 0.36 mg/dL (0.00-1.30)
== END | disposition home or self-care (01) ==
LOC: MFPLAB 15:50
PROVIDERS: PCP Family Medicine; Referring Provider Family Medicine; Visit Provider Family Medicine
DX: K58.9 Irritable bowel syndrome, unspecified (principal); N18.9 Chronic kidney disease, unspecified
CPT/HCPCS: 36415; 80053; 85025

== ENCOUNTER → 2024-12-10 | Outpatient (CLI) | payer MEDICARE, OTHER, SELFPAY ==
--- NOTE | 2024-12-10 12:02 | BI_ITS ---
EXAM: SCRN MAMM (CAD)W/ANNIE BILAT DATE: 12/10/2024 CLINICAL HISTORY: F, Age 74 y/o , SCREENING FOR BREAST CANCER BREAST CANCER RISK ASSESSMENT: Has not been calculated. TECHNIQUE: Bilateral screening digital breast tomosynthesis with 2D and 3D images. Computer aided detection. COMPARISON: Prior exam(s) dated 03/13/2018 and 11/10/2014. FINDINGS: TISSUE DENSITY: The breast tissue is composed of scattered area of fibroglandular density. Bilateral Breast Mammographic Findings: No suspicious masses, suspicious clustered microcalcifications, architectural distortion or secondary sign of malignancy is identified in either breast. There has been no significant change in either breast in comparison to the prior exam. Benign secretory type calcifications and round microcalcifications are seen in the left breast. BI/SCRN MAMM (CAD)W/ANNIE BILAT IMPRESSION: OVERALL FINAL ASSESSMENT: BIRADS 2 BENIGN FINDING RECOMMENDATION: Routine annual follow-up in 1 Year A letter with findings and recommendations will be mailed to the patient. Reading Location: [id number]
== END | disposition home or self-care (01) ==
PROVIDERS: PCP Family Medicine; Referring Provider Family Medicine; Visit Provider Family Medicine
DX: Z12.31 Encounter for screening mammogram for malignant neoplasm of breast (principal)
CPT/HCPCS: 77063; 77067

== ENCOUNTER 2024-12-28 10:15 | Emergency (ER) | payer MEDICARE, OTHER, SELFPAY ==
[2024-12-28 10:15] VITALS: BP 160/81; PULSE 79; RESP 16; TEMP 37; O2SAT 98; BMI 23.7
--- NOTE | 2024-12-28 10:35 | CT_ITS ---
EXAM: CT Abdomen and Pelvis With Intravenous Contrast CLINICAL INDICATION: R FLANK PAIN TECHNIQUE: Axial computed tomography images of the abdomen and pelvis with intravenous contrast. This CT exam was performed using one or more of the following dose reduction techniques: automated exposure control, adjustment of the mA and/or kV according to patient size, and/or use of iterative reconstruction technique. COMPARISON: CT Abdomen Pelvis dated 09/20/2022 FINDINGS: LUNG BASES: Unremarkable. No mass. No consolidation. ABDOMEN: LIVER: Hepatomegaly with fatty infiltration. GALLBLADDER AND BILE DUCTS: Unremarkable. No calcified stones. No ductal dilation. PANCREAS: Unremarkable. No mass. No ductal dilation. SPLEEN: Unremarkable. No splenomegaly. ADRENALS: Unremarkable. No mass. KIDNEYS AND URETERS: Small bilateral renal cysts. No stones within either kidney. No hydronephrosis. STOMACH AND BOWEL: Unremarkable. No obstruction. No mucosal thickening. PELVIS: APPENDIX: No findings to suggest acute appendicitis. BLADDER: Unremarkable. No mass. REPRODUCTIVE: Unremarkable as visualized. ABDOMEN and PELVIS: INTRAPERITONEAL SPACE: Unremarkable. No free air. No significant fluid collection. BONES/JOINTS: No acute fracture. No dislocation. SOFT TISSUES: Umbilical hernia containing fat. VASCULATURE: Unremarkable. No abdominal aortic aneurysm. LYMPH NODES: Unremarkable. No enlarged lymph nodes. CT/Abdomen/Pelvis W IV Cont ONLY IMPRESSION: 1. Hepatomegaly with fatty infiltration. 2. Umbilical hernia containing fat. 3. No obstructive uropathy. Reading Location: [facility]
--- NOTE | 2024-12-28 10:36 | EX.ED.DYSGE1 ---
HPI History of Present Illness Chief Complaint: Flank Pain Narrative Narrative: Patient is a 74-year-old female past medical history hypertension, kidney stones who presents to the emergency department chief complaint of right flank pain. Patient states that on Sunday she developed right flank pain and states that she had been extremely nauseous over the last several days. Patient notes that this feels like her previous kidney stone. Patient states that she can handle pain but cannot handle the nausea anymore therefore she came here for evaluation management. States that anytime she tried to put anything to eat in her mouth she immediately was dry heaving. Patient states that this morning she was able to keep down cereal. [facility] Medical History Kidney stones Hypertension Ejection fraction < 50% manipulation under anesthesia Osteoarthritis of left knee Home Medications ?Medication ?Instructions ?Recorded ?Last Taken ?Type prednisolone acetate 1 % eye 1 drp ophthalmic (eye) TID 07/10/23 12/28/24 History drops,suspension cephalexin 500 mg capsule 500 mg PO Q12H 5 days #10 caps 12/28/24 Unknown Rx ondansetron 4 mg disintegrating 4 mg PO Q6H #30 tabs 12/28/24 Unknown Rx tablet Allergy/AdvReac Type Severity Reaction Status Date / Time morphine AdvReac Vomiting Verified 12/28/24 10:15 Family History Mother Hypertension Surgical History retina detachment of right eye History of total left knee replacement H/O hysterectomy for benign disease S/P appendectomy Hx of cholecystectomy History of tonsillectomy History of total right knee replacement Social History (Updated 12/28/24 @ 10:50 by Abi Velazquez) housing: house current occupational status: retired pets and animals: Yes Smoking Status: Never smoker ROS ROS ED ROS Narrative Constitutional: Denies fevers, chills, headaches Cardiovascular: Denies chest pain Respiratory: Denies shortness of breath Abdomen: Complains of nausea and vomiting as noted above denies abdominal pain diarrhea : Denies any painful urination, hematuria, polyuria Neurological: Denies any numbness, weakness, tingling Musculoskeletal: Complains of right flank pain as noted above Skin: Denies rashes or lesions EXAM Physical Exam Const Vital Signs: 12/28/24 10:15 12/28/24 12:16 Temperature 98.6 F Temperature Source Oral Pulse Rate 79 72 Respiratory Rate 16 17 Blood Pressure 160/81 H 153/59 H Blood Pressure Mean 107 90 Pulse Ox 98 95 Oxygen Delivery Method Room Air MDM MDM MDM Narrative Medical decision making narrative: Patient is a 74-year-old female who presented to the emergency department with chief complaint of right flank pain. On the differential diagnosis includes but not limited to urolithiasis, nephrolithiasis, UTI, pyelonephritis, AAA. Once workup is obtained reviewed she will be reevaluated. Patient be given Zofran and IV fluids. Patient CBC reviewed showed no evidence leukocytosis white blood count normal 8.7, hemoglobin is 15.1, platelet count was noted be 219. Patient sodium was 141, potassium normal 3.9, creatinine normal at 0.97. Patient's AST and ALT were normal at 23 and 16 respectively. Patient lipase normal at 35. Patient's urinalysis showed positive nitrates 5, leukocyte esterase greater than and white cells with 3+ bacteria she was given a gram Rocephin urine was sent for culture. Patient CT ab pelvis IV contrast was reviewed showed hepatomegaly with fatty infiltration, umbilical hernia containing fat. No obstructive uropathy noted. Reevaluation the patient she is feeling much better she would like to go home at this point time. Patient be given a prescription for Keflex she was vies follow-up on the urine culture. She was given prescription for Zofran and was vies return with worsening symptoms or concerns. She is agreeable to plan all question concerns answered she is discharged home in stable condition. Lab Data Labs: Laboratory Results - last 24 hr 12/28/24 12/28/24 10:45 11:05 WBC 8.7 RBC 5.05 Hgb 15.1 H Hct 44.8 MCV 88.7 MCH 29.9 MCHC 33.7 RDW Std Deviation 39.8 RDW Coeff of Darnell 12.2 Plt Count 219 MPV 9.9 Immature Gran % (Auto) 0.200 Neut % (Auto) 69.6 Lymph % (Auto) 20.9 [place] % (Auto) 7.6 Eos % (Auto) 1.2 Baso % (Auto) 0.5 Absolute Neuts (auto) 6.0 Absolute Lymphs (auto) 1.81 Nucleated RBC % 0 Sodium 141 Potassium 3.9 Chloride 104 Carbon Dioxide 24.1 Anion Gap 12 BUN 23 H Creatinine 0.97 Estim Creat Clear Calc 40.24 L Est GFR (MDRD) Non-Af 61 BUN/Creatinine Ratio 23.5 H Glucose 115 H Calcium 9.6 Total Bilirubin 0.63 AST 23 ALT 16 Alkaline Phosphatase 110 H Total Protein 7.4 Albumin 4.3 Globulin 3.1 Albumin/Globulin Ratio 1.4 Lipase 35 Urine Color Yellow Urine Clarity Cloudy Urine pH 6.0 Ur Specific [place] 1.020 Urine Protein 30 H Urine Glucose (UA) Normal Urine Ketones Negative Urine Occult Blood 50 H Urine Nitrite Positive H Urine Bilirubin Negative Urine Urobilinogen Normal Ur Leukocyte Esterase 500 H Urine RBC 0-5 SEEN Urine WBC >100 SEEN Ur Squamous Epith Cells 5-10 SEEN Urine Bacteria 3+ Hyaline Casts 5-10 SEEN Urine Mucus 0 SEEN Radiography Diagnostic Testing: Clinical Impression(s) from Imaging Studies Abdomen/Pelvis CT 12/28/24 10:35 IMPRESSION: 1. Hepatomegaly with fatty infiltration. 2. Umbilical hernia containing fat. 3. No obstructive uropathy. Reading Location: [facility] Discharge Plan Triage Chief Complaint: Flank Pain ED Provider: Venancio Fish Dx/Rx/DC Orders Clinical Impression: Urinary tract infection, Nausea & vomiting Prescriptions: New ondansetron 4 mg tablet,disintegrating 4 mg PO Q6H Qty: 30 0RF cephalexin 500 mg capsule 500 mg PO Q12H 5 Days Qty: 10 0RF No Action prednisolone acetate 1 % drops,suspension 1 drp ophthalmic (eye) TID Patient Comments: INSTILL 1 DROP INTO LEFT EYE 3 TIMES A DAY Primary Care Provider: Braulio Huang Referrals: Braulio Huang MD [Primary Care Provider] - Activity Restrictions/Additional Instructions: Take prescriptions as prescribed. Follow-up on urine culture with your primary care physician. Return with worsening symptoms or concerns. Your CT scan did not show any evidence of kidney stone and your urine did look like you have a urinary tract infection. The rest your blood work did not show any acute findings today. Print Language: Yemeni Disposition Disposition: Home, Self Care
[2024-12-28] MEDS: 0.9% Normal Saline (1000mL) 1,000 ML 999 ML IV (10:47)
[2024-12-28] MEDS: Ondansetron 4 MG/2 ML Vial IV (10:47)
[2024-12-28 10:53] LABS: Absolute Lymphocyte Count 1.81 X10^3/uL (0.83-4.51); Basophil# 0.04 X10^3/uL; Basophil% 0.5 % (0-1); Eosinophils% 1.2 % (0-5); Hematocrit 44.8 % (37-47); Hemoglobin 15.1 g/dL (12.0-15.0); Lymphocyte # 1.81 X10^3/ul (0.83-4.51); Lymphocyte % 20.9 % (19-41); Mean Corp Hgb Conc 33.7 g/dL (32-36); Mean Corpuscular Hgb 29.9 pg (27.0-32.0); Mean Corpuscular Volume 88.7 fL (81-99); Mean Platelet Vol. 9.9 fl (6.2-12.0); Monocyte# 0.66 X10^3/uL; Monocyte% 7.6 % (0-10); NRBC Flagged by Analyzer 0 % (0-5); Neutrophil # 6.02 X10^3/uL (2.7-7.7); Neutrophil % 69.6 % (47-70); Platelet Count 219 K/mm3 (150-450); RBC Distribution Width CV 12.2 % (11.6-14.6); RBC Distribution Width SD 39.8 fl (35.1-43.9); Red Blood Count 5.05 M/mm3 (4.2-5.4); White Blood Count 8.7 K/mm3 (4.4-11.0)
[2024-12-28 11:11] LABS: ALB/GLOB Ratio 1.4 RATIO (0.9-2.4); AST(SGOT) 23 U/L (<=31); Alanine Aminotransfer ALT/SGPT 16 U/L (<=34); Albumin, Serum 4.3 g/dL (3.4-4.8); Alkaline Phosphatase 110 U/L (35-104); Anion Gap 12 (5-15); BUN 23 mg/dL (4-19); BUN/Creat Ratio 23.5 RATIO (10-20); Calcium,Total 9.6 mg/dL (7.6-11.0); Carbon Dioxide 24.1 mmol/L (21.0-32.0); Chloride 104 mmol/L (98-108); Creatinine, Serum 0.97 mg/dL (0.70-1.20); EST Glomerular Filtration Rate 61 (>60); Estimated Creatinine Clearance 40.24 ml/min (50-250); Globulin 3.1 g/dL (2.2-4.2); Glucose 115 mg/dL (70-99); Lipase 35 U/L (13-75); Potassium 3.9 mmol/L (3.3-5.1); Protein, Total 7.4 g/dL (5.9-8.4); Sodium Level 141 mmol/L (133-145); Total Bilirubin 0.63 mg/dL (0.00-1.30)
[2024-12-28 11:18] LABS: Mucous, Urine 0 SEEN /hpf (<or=2+)
[2024-12-28 11:21] LABS: Color, Urine Yellow (Yellow); Glucose, Dipstick Normal (Normal); Ketone-Dipstick Negative (Negative); Leukocyte Esterase-Dipstick 500 /ul (Negative); Nitrite-Dipstick Positive (Negative); Occult Blood-Urine 50 /ul (Negative); Protein-Dipstick 30 mg/dl (Negative); Urine Bilirubin Dipstick Negative (Negative); Urine Clarity Cloudy (Clear); Urine Urobilinogen Normal (Normal)
[2024-12-28 11:37] LABS: Bacteria 3+ /hpf (None Seen); Red Blood Cells-Urine 0-5 SEEN /hpf (0-5); Squamous Epithelial Cells - UA 5-10 SEEN /hpf (5-10); White Blood Cells >100 SEEN /hpf (0-5)
[2024-12-28 11:39] LABS: Hyaline Cast 5-10 SEEN /lpf (0-5)
[2024-12-28] MEDS: Ceftriaxone 1 GM/50 ML BAG IV (12:11)
[2024-12-28 12:16] VITALS: BP 153/59; PULSE 72; RESP 17; O2SAT 95
[2024-12-28 12:33] VITALS: BP 153/59; PULSE 86; RESP 18; O2SAT 98
== END 2024-12-28 12:34 | disposition home or self-care (01) ==
PROVIDERS: Emergency Provider Emergency Medicine; PCP Family Medicine; Visit Provider Emergency Medicine
DX: N39.0 Urinary tract infection, site not specified (principal); R11.2 Nausea with vomiting, unspecified; I10 Essential (primary) hypertension; K42.9 Umbilical hernia without obstruction or gangrene; R16.0 Hepatomegaly, not elsewhere classified; Z87.442 Personal history of urinary calculi
CPT/HCPCS: 74177; 80053; 81001; 83690; 85025; 87077; 87086; 87088; 87186; 96361; 96365; 96375; 99283; Q9967; A4216; J2405

== ENCOUNTER → 2025-01-13 | Outpatient (CLI) | payer MEDICARE, OTHER, SELFPAY ==
--- NOTE | 2025-01-13 12:24 | RAD_ITS ---
PROCEDURE: L/S SPINE W BEND MIN 6 VW 01/13/2025 REASON FOR EXAM: BACK PAIN TECHNIQUE: Standing 7 view lumbar spine series including flexion and extension lateral images were obtained. COMPARISON: Lumbar spine 10/03/2022 FINDINGS: There are no compression fractures. There is mild dextroscoliosis of the thoracolumbar spine. There is mild degenerative disc disease, L3-4 through L5-S1 with narrowing of the disc spaces and small marginal osteophytes. There is no significant facet arthropathy. There is no spondylolisthesis. There is no instability with flexion and extension. The SI joints are normal. The paravertebral soft tissues are normal. RAD/L/S Spine w Bend Min 6 Vw IMPRESSION: 1. Mild multilevel degenerative disc disease with mild dextroscoliosis. 2. No evidence of instability with flexion and extension. Reading Location: [id number]
== END | disposition home or self-care (01) ==
LOC: RAD.FUTURE 12:18 → RAD 12:19
PROVIDERS: PCP Family Medicine; Referring Provider Family Medicine; Visit Provider Family Medicine
DX: M54.9 Dorsalgia, unspecified (principal)
CPT/HCPCS: 72114

== ENCOUNTER 2025-02-19 08:00 | Outpatient (RCR) | payer MEDICARE, OTHER, SELFPAY ==
--- NOTE | 2025-01-22 10:45 | HP.PTEVAL ---
Patient's Visit Information Visit Information Visit Information: ALCIDES BUTT is a 74 year old F referred to Physical Therapy by Dr. Braulio Huang MD with a diagnosis of DDD. Date of Evaluation: 01/22/25 Physical Therapist: Nani Yao DPT Visit Plan Frequency: 2x /Week Duration: 4 Weeks Plan: Extension bias- core strength/stabilization- centralization of symptoms HEP Given IE: postural education, lumbar support roll in sitting, prone lying and prone prop Subjective Subjective: Patient reports that for over a month she has had pain- she finally went to the ER- they diagnosed her with a UTI- that helped a little - she has pain in the right side of her back and the right leg goes to sleep and is numb. The pain is there all the time. Worst: 04/22 Agg: the pain is the same all the time. Sitting makes her leg go to sleep. When she is in bed the leg does not go to sleep. She does all of her stuff anyways. Nothing makes the pain better. Sleep: sometimes- side and back sleeper. Describes the pain as not shooting its just there. The foot goes to sleep and is numb and she can't feel it. If she sits sideways and elevates her legs they don't go numb. They took x-rays and it shows mild degenerative disc disease, L3-4 through L5-S1 with narrowing of the disc spaces and small marginal osteophytes. Fully I with all ADL's. No falls or weakness with the leg. PMHx/Meds: in chart. Objective Objective: Posture: forward head, rounded shoulder- can correct but does not maintain- seated posture when slumped increases right leg s/s- when sitting with a towel roll she has no s/s HR/TR: WNL Balance: weight shift but unable to SLS ROM: Lumbar: WNL in all planes but does not report pain, Hip: WNL in all planed- reports discomfort and pulling with full flexion on the right Sensation: WNL to gross touch bilateral LE Strength: Core: fair minus, Hip: Right: 4-/5 throughout, Left: 4+/5, Knee: Right: 4/5 Left: 4+/5, Ankle: 4+/5 bilateral Flex: HS: Right: severe, Left: moderate, Gastroc: moderate bilateral Dural s/s: positive on the right. Prone Lying: abolishes s/s forward flexion: increases s/s Special Tests L/S Slump test left side: Negative L/S Slump test right side: Positive L/S Left Straight Leg Raise: Negative L/S Right Straight Leg Raise: Positive Balance/Special Test Scores Oswestry Low Back Score: 6 Goals Goal 1:: Patient will be I with HEP and progression Goal Time Frame: 4-6 Weeks Goal 2:: Patient will report no dural s/s for 1 week Goal Time Frame: 4-6 Weeks Goal 3:: Patient will maintain proper posture t/o tx session to demo increased core s/s Goal Time Frame: 4-6 Weeks Goal 4:: Patient will report 80% improvement Goal Time Frame: 4-6 Weeks Rehabilitation Potential Physical Therapy Diagnosis: Patient presents with hypomobility- she has decreased LE and core strength/stabilization, flex and muscular endurance leading to poor posture and increased dural s/s and increased pain with ADL's. Rehabilitation Potential: Good Anticipated Interventions Therapeutic Exercise to Include: Strength training, Endurance training, Coordination, Agility training, Body mechanics, Postural training, Flexibilty training, Gait and locomotor training, Neuromotor development, Dynamic Lumbar Stabilization, Rekha Exercises and Scapular Strength/Stabilization For the Purpose of:: To decrease pain and To improve ability to perform ADL's TENS: Yes Cryotherapy (ice pack, ice massage): Yes Thermo therapy (hot pack): Yes Ultrasound (thermal/non thermal): Yes Text: Thank you for the opportunity to evaluate your patient. For Medicare and Medicare HMO plans, please review the plan of care and approve it. It will need to be FAXED BACK to us at [phone] for Medicare purposes. For Medicare only, by signing this I certify the plan of care. Please let me know if there are questions or concerns regarding this plan of care. Physician Signature: Date:
--- NOTE | 2025-02-19 08:44 | HP.PTDCSUM ---
Discharge Summary D/C summary: It has been my pleasure to treat ALCIDES BUTT referred by Dr. Braulio Huang MD, with the diagnosis of DDD for a total of 9 visit(s). Discharge Date: Please see the following information for a summary of their discharge status. Subjective Subjective: Patient reports that she is back to 100%- doing all of her normal activities and ready for d/c Overall Improvement % Improvement: 100 Objective Objective/Function: Posture: good throughout HR/TR: WNL Balance: 15 seconds ROM: Lumbar: WNL no pain Sensation: WNL to gross touch bilateral LE Strength: Core: fair minus, Hip: Right: 4/5 throughout, Left: 4+/5, Knee: Right: 4/5 Left: 4+/5, Ankle: 4+/5 bilateral Flex: HS: Right: severe, Left: moderate, Gastroc: moderate bilateral Dural s/s: no s/s Goals Goal 1:: Patient will be I with HEP and progression Goal Progress: Goal Met Goal 2:: Patient will report no dural s/s for 1 week Goal Progress: Goal Met Goal 3:: Patient will maintain proper posture t/o tx session to demo increased core s/s Goal Progress: Goal Met Goal 4:: Patient will report 80% improvement Goal Progress: Goal Met Plan Plan: Discharge to I HEP D/C Information d/c sentence: If there are questions or concerns regarding this patient's physical therapy, please feel free to call me at [phone]. Thank you for the referral of this patient. Sincerely, Nani Yao, DPT Balance/Gait/Functional tests Balance/Special Test Scores Oswestry Low Back Score: 0 Improvement % Improvement: 100
== END 2025-02-19 10:48 | disposition home or self-care (01) ==
LOC: PT 08:00
PROVIDERS: PCP Family Medicine; Referring Provider Family Medicine; Visit Provider Family Medicine
DX: M51.9 Unspecified thoracic, thoracolumbar and lumbosacral intervertebral disc disorder (principal)
CPT/HCPCS: 97110; 97162; 97530

== ENCOUNTER → 2025-03-23 | Outpatient (CLI) | payer MEDICARE, OTHER, SELFPAY | END | disposition home or self-care (01) | LOC: MFPLAB 16:03 | PROVIDERS: PCP Family Medicine; Visit Provider Family Medicine | DX: N39.0 Urinary tract infection, site not specified (principal); M54.9 Dorsalgia, unspecified | CPT/HCPCS: 87077; 87086; 87088; 87186 ==

== ENCOUNTER → 2025-06-08 | Outpatient (CLI) | payer MEDICARE, OTHER, SELFPAY ==
--- NOTE | 2025-06-08 12:33 | RAD_ITS ---
PROCEDURE: RAD/Humerus min 2 Views
== END | disposition home or self-care (01) ==
LOC: MTRAD 12:32
PROVIDERS: PCP Family Medicine; Referring Provider Family Medicine; Visit Provider Family Medicine
DX: M79.602 Pain in left arm (principal)
CPT/HCPCS: 73060

== ENCOUNTER → 2025-07-10 | Outpatient (CLI) | payer MEDICARE, OTHER, SELFPAY ==
--- OUTSIDE RECORDS SUMMARY | 2025-07-10 15:28 | XMS RPT_ITS | CCD ---
Author Organization [facility] Inform ion [facility] Care Team Providers Care Health Science Instructor Name Role Phone PHYSICIAN, NONE Primary Care Physician Unavailab le PHYSICIAN, NONE Primary Care Unavailable INDRA LUIS DO Attending Unavailable Zeeshan SUÁREZ, Dr. Ramsey Primary Care Provider Zeeshan SUÁRZE, Dr. Ramsey Attending Provider Zeeshan SUÁREZ, Dr. Ramsey Referring Provider Dr. Venancio Fish DO Emergency Provider Abe RODRIGUEZ, Dr. Craft Attending Provider Zeeshan SUÁREZ, Braulio Oliveira Primary Care Provider MANE MUNGUIA Attending Unavailable ZEESHAN, BRAULIO OLIVEIRA Primary Care Unavailable Huang, Braulio Primary Care Unavailable Huang, Braulio Referring Unavailable Huang, Braulio Attending Unavailable Jolanta CASE MONITOR, Nani Attending Unavailable Jolanta CASE MONITOR, Nani Referring Unavailable Huang, Braulio Primary Care Unavailable Huang, Braulio Primary Care Unavailable Huang, Braulio Referring Unavailable Huang, Braulio Attending Unavailable Zeeshan, Braulio Primary Care Unavailable Huang, Braulio Attending Unavailable Zeeshan, Braulio Primary Care Unavailable Huang, Braulio Referring Unavailable Huang, Braulio Attending Unavailable Venancio Fsih Attending Unavailable Huang, Braulio Primary Care Unavailable Huang, Braulio Primary Care Unavailable Huang, Braulio Referring Unavailable Huang, Braulio Attending Unavailable Huang, Braulio Primary Care Unavailable Huang, Braulio Referring Unavailable Huang, Braulio Attending Unavailable Allergies Allergy Classification Reported Allergen(s) Allergy Type Date of Onset Reaction(s) Facility (13 sources) Morphine; Translations: [morphine] Drug Allergy 6 Nausea/vomiting [facility] (1 source) Morphine Drug Allergy 5 [facility] Repository Medications Current Medications Medication Drug Class(es) Dates Sig (Normalized) Sig (Original) cephalexin 500 mg oral capsule (11 sources) Cephalosporin Antibacterial Start: 12-28-2024 take 1 capsule by mouth every twelve hours Cephalexin 500 mg capsule Active 500 mg PO Q12H 10 5 0 December 28, 2024 12:00am Start: 08-10-2024 End: 08-17-2024 cephalexin 500 mg oral capsu le Dose : 500 mg = 1 cap(s), Oral, q12h, X 7 day(s), # 14 cap(s), 0 Refill(s), 08/17/24 4:29:00 PM EST, 56.9 Start Date: 08/10/24 Stop Date: 08/17/24 Status: Ordered Quantity: 14.0 Unit: cap(s) Repeat number: 1 Start: 07-10-2023 End: 07-20-2023 take 1 capsule by mouth twice daily Cephalexin 500 mg capsule Discontinued 500 mg PO TWICE A DAY 14 7 0 July 10, 2023 1:00am July 20, 2023 1:13pm ondansetron 4 mg disintegrating oral tablet (5 sources) Serotonin-3 Receptor Antagonist Start: 12-28-2024 take 1 tablet by mouth every six hours Ondansetron 4 mg tablet,disintegrating Active 4 mg PO EVERY 6 HOURS 30 0 December 28, 2024 12:00am Start: 05-15-2020 ondansetron 4 mg oral tablet, disintegrating Dose : 4 mg = 1 tab(s), Oral, q6h, PRN Nausea/Vomiting, # 20 tab(s), 0 Refill(s) Start Date: 05/15/20 Status: Ordered Quantity: 20.0 Unit: tab(s) Repeat number: 1 prednisoLONE acetate 10 mg/ml ophthalmic suspension (7 sources) Corticosteroid Start: 03-07-2025 take 1 drop(s) into the eye(s) twice daily prednisoLONE acetate (Pred-Forte) 1 % ophthalmic suspension Administer 1 drop into the left eye 2 times a day. 03/07/2025 Active Start: 07-10-2023 Prednisolone A cetate 1 % drops,suspension Active 1 NMA OPHTHALMIC THREE TIMES A DAY July 10, 2023 1:00am Completed/Discontinued Medications Medication Drug Class(es) Dates Sig (Normalized) Sig (Original) acetaminophen 325 mg oral tablet (1 source) Start: 04-07-2025 End: 04-07-2025 take 650 mg by mouth once as needed for pain 650 mg, oral, Once, On Sun04/07/25 at 1235, For 1 dose, If ordered PRN for pain, nurse is permitted to administer this medication for higher pain scores based on patient preference? Yes acetaminophen 325 mg / HYDROcodone bitartrate 5 mg oral tablet (5 sources) Opioid Agonist Start: 07-20-2023 End: 12-28-2024 Hydrocodone-Acetam inophen 5-325 mg tablet Discontinued 1 {tbl} PO EVERY 6 HOURS NEEDED as needed for Pain 10 3 0 July 20, 2023 December 28, 2024 11:41am Acute left flank pain Unspecified abdominal pain ciprofloxacin 500 mg oral tablet (5 sources) Quinolone Antimicrobial Start: 07-20-2023 End: 12-28-2024 take 1 tablet by mouth twice daily Ciprofloxacin Hcl 500 mg tablet Discontinued 500 mg PO TWICE A DAY 14 0 July 20, 2023 1:00am December 28, 2024 11:41am lisinopril 10 mg oral tablet (10 sources) Angiotensin Converting Enzyme Inhibitor Start: 05-14-2016 End: 07-10-2023 take 5 mg by mouth once daily Lisinopril 10 MG tablet Discontinued 5 mg PO DAILY May 14, 2016 12:00am July 10, 2023 8:43pm Start: 05-14-2016 End: 07-10-2023 take 5 mg by mouth once daily Lisinopril Discontinued 5 MG PO DAILY May 13, 2016 11:00pm July 10, 2023 7:43pm methylPREDNISolone 4 mg oral tablet (10 sources) Corticosteroid Start: 04-10-2017 End: 07-23-2017 Methylprednisolone 4 MG tablet Discontinued 4 mg PO DIRECTED 1 April 10, 2017 12:00am July 23, 2017 9:25am tamsulosin hydrochloride 0.4 mg oral capsule (1 source) alpha-Adrenergic Ritchie Start: 05-15-2020 End: 05-22-2020 tamsulosin 0.4 mg oral capsule Dose : 0.4 mg = 1 cap(s), Oral, BID, # 14 cap(s), 0 Refill(s) Start Date: 05/15/20 Stop Date: 05/22/20 Status: Ordered Quantity: 14.0 Unit: cap(s) Repeat number: 1 Problems Active Problems Problem Classification Problem Date Documented Da te Episodic/Chronic Calculus of urinary tract (5 sources) Kidney stone; Translations: [Calculus of kidney] 07-28-2023 Episodic Genitourinary symptoms and ill-defined conditions (1 source) Dysuria; Translations: [Dysuria] Onset: 08-10-2024 Episodic Malaise and fatigue (7 sources) Asthenia; Translations: [Weakness] Onset: 08-10-2024 07-10-2023 Episodic Nausea and vomiting (4 sources) Nausea and vomiting; Translations: [Nausea with vomiting, unspecified] 12-28-2024 Episodic Open wounds of head; neck; and trunk (3 sources) Facial laceration ; Translations: [Laceration without foreign body of other part of head, initial encounter] Onset: 04-07-2025 04-07-2025 Episodic Osteoarthritis (10 sources) Osteoarthritis of left knee joint; Translations: [Unilateral primary osteoarthritis, left knee] 07-23-2017 Chronic Other aftercare (10 sources) Follow-up status; Translations: [Encounter for other orthopedic aftercare] 07-20-2017 Episodic Other connective tissue disease (1 source) Pain in left arm; Translations: [Pain in left arm] Onset: 06-19-2025 Episodic Other diseases of kidney and ureters (5 sources) Acute renal insufficiency; Translations: [Disorder of kidney and ureter, unspecified] 07-28-2023 Episodic Other gastrointestinal disorders (1 source) Irritable bowel syndrome without diarrhea; Translations: [Irritable bowel syndrome, unspecified] Onset: 12-05-2024 Chronic Other injuries and conditions due to external causes (1 source) Injury of head; Translations: [Unspecified injury of head, initial encounter] 04-07-2025 Episodic Other injuries and conditions due to external causes (2 sources) Unspecified injury of head, initial encounter; Translations: [Unspecified injury of head, initial encounter] Onset: 04-07-2025 Episodic Other non-traumatic joint disorders (10 sources) Knee stiff; Translations: [Stiffness of left knee, not elsewhere classified] 07-20-2017 Episodic Superficial injury; contusion (3 sources) Contusion of left elbow; Translations: [Contusion of left elbow, initial encounter] Onset: 04-07-2025 04-07-2025 Episodic Urinary tract infections (16 sources) Acute urinary tract infection; Translations: [Urinary tract infection, site not specified] Onset: 03-26-2025 07-10-2023 Episodic Past or Other Problems Problem Classification Problem Date Documented Da te Episodic/Chronic Abdominal pain (6 sources) Left flank pain; Translations: [Unspecified abdominal pain] Onset: 01-01-2025 07-28-2023 Episodic Other screening for suspected conditions (not mental disorders or infectious disease) (1 source) Encounter for screening mammogram for malignant neoplasm of breast; Translations: [Encounter for screening mammogram for malignant neoplasm of breast] Onset: 12-16-2024 Episodic Spondylosis; intervertebral disc disorders; other back problems (1 source) Dorsalgia, unspecified; Translations: [Dorsalgia, unspecified] Onset: 01-19-2025 Episodic Results Test Name Value Interpretation Reference Range Facility Humerus min 2 Viewson 2024 Humerus min 2 Views [facility] Imaging Services [address] [place] [address] [id number] Humerus min 2 Views MR#: [id number] Acct: [id number] Name: ALCIDES NICKERSON Rep #: [id number] : 1950 F 74 From: Ramirez Helton MD PCP: Dr. Braulio Huang MD Status: REG CLI Study: Humerus min 2 Views Date of Exam: 06/08/25 Exam# [id number] Ordering Dr: Braulio Huang MD PROCEDURE: HUMERUS MIN 2 VIEWS 06/08/2025 REASON FOR EXAM: LEFT ARM PAIN TECHNIQUE: Procedure Code: RADHUM Modality: DX Procedure: HUMERUS MIN 2 VIEWS Laterality: Left FINDINGS: No evidence of acute fracture or dislocation. The soft tissues are unremarkable. RAD/Humerus min 2 Views IMPRESSION: No acute osseous abnormalities. Reading Location: [id number] CC: Dr. Braulio Huang MD Account Retention Representative: Signed Normal [facility] CT CERVICAL SPINE WO IV CONT ROSALBATon 04-07-2025 CT CERVICAL SPINE WO IV CONTRAST Interpreted By: Ramirez Gallego, STUDY: CT CERVICAL SPINE WO IV CONTRAST; 04/07/2025 12:50 pm INDICATION: Signs/Symptoms:fall. COMPARISON: None. ACCESSION NUMBER(S): [id number] ORDERING CLINICIAN: MANE MUNGUIA TECHNIQUE: Axial CT images of the cervical spine are obtained. Axial, coronal and sagittal reconstructions are provided for review. FINDINGS: Vertebrae: No evidence of acute fracture of the cervical spine. Vertebral body heights are maintained. Vertebral Alignment: Within normal limits. Craniocervical Junction: The odontoid process and craniocervical junction are intact. Spinal canal: Grossly unremarkable. Degenerative: Mild C5-C6 intervertebral disc height loss with anterior beaking osteophytes, posterior disc osteophyte complex, and uncovertebral spurring. Mild facet hypertrophy most advanced on the left C3-C4 and bilaterally at C4-C5. Moderate bony foraminal stenosis on the right at C4-C5 Prevertebral/Paraspina l Soft Tissues: Unremarkable. IMPRESSION: No evidence of acute fracture or traumatic malalignment of the cervical spine. Cervical spondylosis resulting in moderate bony foraminal stenosis on the right at C4-C5. No significant bony spinal canal stenosis. MACRO: None Signed by: Ramirez Gallego 04/07/2025 1:14 PM Dictation workstation: [id number] [facility] CT Cervical spine WO contras ton 04-07-2025 No evidence of acute fracture or traumatic malalignment of the cervical spine. Cervical spondylosis resulting in moderate bony foraminal stenosis on the right at C4-C5. No significant bony spinal canal stenosis. MACRO: None Signed by: Ramirez Gallego 04/07/2025 1:14 PM Dictation workstation: [id number] [facility] Interpreted By: Ramirez Wells i, STUDY: CT CERVICAL SPINE WO IV CONTRAST; 04/07/2025 12:50 pm INDICATION: Signs/Symptoms:fall. COMPARISON: None. ACCESSION NUMBER(S): [id number] ORDERING CLINICIAN: MANE MUNGUIA TECHNIQUE: Axial CT images of the cervical spine are obtained. Axial, coronal and sagittal reconstructions are provided for review. FINDINGS: Vertebrae: No evidence of acute fracture of the cervical spine. Vertebral body heights are maintained. Vertebral Alignment: Within normal limits. Craniocervical Junction: The odontoid process and craniocervical junction are intact. Spinal canal: Grossly unremarkable. Degenerative: Mild C5-C6 intervertebral disc height loss with anterior beaking osteophytes, posterior disc osteophyte complex, and uncovertebral spurring. Mild facet hypertrophy most advanced on the left C3-C4 and bilaterally at C4-C5. Moderate bony foraminal stenosis on the right at C4-C5 Prevertebral/Paraspina l Soft Tissues: Unremarkable. [facility] MMODAL Ramirez Gallego MD - 04/07/2025 Interpreted By: Ramirez Gallego, STUDY: CT CERVICAL SPINE WO IV CONTRAST; 04/07/2025 12:50 pm INDICATION: Signs/Symptoms:fall. COMPARISON: None. ACCESSION NUMBER(S): [id number] ORDERING CLINICIAN: MANE MUNGUIA TECHNIQUE: Axial CT images of the cervical spine are obtained. Axial, coronal and sagittal reconstructions are provided for review. FINDINGS: Vertebrae: No evidence of acute fracture of the cervical spine. Vertebral body heights are maintained. Vertebral Alignment: Within normal limits. Craniocervical Junction: The odontoid process and craniocervical junction are intact. Spinal canal: Grossly unremarkable. Degenerative: Mild C5-C6 intervertebral disc height loss with anterior beaking osteophytes, posterior disc osteophyte complex, and uncovertebral spurring. Mild facet hypertrophy most advanced on the left C3-C4 and bilaterally at C4-C5. Moderate bony foraminal stenosis on the right at C4-C5 Prevertebral/Paraspina l Soft Tissues: Unremarkable. IMPRESSION: No evidence of acute fracture or traumatic malalignment of the cervical spine. Cervical spondylosis resulting in moderate bony foraminal stenosis on the right at C4-C5. No significant bony spinal canal stenosis. MACRO: None Signed by: Ramirez Gallego 04/07/2025 1:14 PM Dictation workstation: [id number] [facility] Work Phone: [facility] Work Phone: CT HEAD WO IV CONTRASTon CT HEAD WO IV CONTRAST Interpreted By: Ramirez Eubanks, STUDY: CT HEAD WO IV CONTRAST; 04/07/2025 12:50 pm INDICATION: Signs/Symptoms:fall. COMPARISON: None. ACCESSION NUMBER(S): [id number] ORDERING CLINICIAN: MANE MUNGUIA TECHNIQUE: Noncontrast axial CT scan of head was performed. Angled reformats in brain and bone windows were generated. The images were reviewed in bone, brain, blood and soft tissue windows. FINDINGS: Calvarium: Calvarium is intact. Soft tissue swelling overlying the left frontal calvarium/superior orbital rim with few locules of gas concerning for laceration injury and contusion/hematoma Paranasal sinuses and mastoids: Mucosal thickening of the partially imaged left maxillary sinus. Globes/orbits: Surgical changes of left scleral band. Globes are intact. Parenchyma/CSF Spaces: No acute large vascular territory infarct.Remote left basal ganglia lacunar infarcts versus dilated perivascular spaces. No mass effect or midline shift. No acute intracranial hemorrhage. No hydrocephalus. Patchy low-attenuation within the periventricular and subcortical white matter commonly attributed to chronic microvascular ischemia in patients of this age.Global cerebral and cerebellar volume loss with ex vacuo ventricular dilatation is age appropriate. Intracranial atherosclerosis. IMPRESSION: No CT evidence of acute intracranial abnormality. Left frontal/supraorbital scalp contusion and laceration without calvarial fracture. Chronic senescent changes including white matter disease commonly attributed to chronic microvascular ischemia and age-appropriate volume loss. MACRO: None Signed by: Ramirez Gallego 04/07/2025 1:10 PM Dictation workstation: [id number] [facility] CT Head WO contraston [address] evidence of acute intracranial abnormality. Left frontal/supraorbital scalp contusion and laceration without calvarial fracture. Chronic senescent changes including white matter disease commonly attributed to chronic microvascular ischemia and age-appropriate volume loss. MACRO: None Signed by: Ramirez Gallego 04/07/2025 1:10 PM Dictation workstation: [id number] [facility] Interpreted By: Ramirez Wells i, STUDY: CT HEAD WO IV CONTRAST; 04/07/2025 12:50 pm INDICATION: Signs/Symptoms:fall. COMPARISON: None. ACCESSION NUMBER(S): [id number] ORDERING CLINICIAN: MANE MUNGUIA TECHNIQUE: Noncontrast axial CT scan of head was performed. Angled reformats in brain and bone windows were generated. The images were reviewed in bone, brain, blood and soft tissue windows. FINDINGS: Calvarium: Calvarium is intact. Soft tissue swelling overlying the left frontal calvarium/superior orbital rim with few locules of gas concerning for laceration injury and contusion/hematoma Paranasal sinuses and mastoids: Mucosal thickening of the partially imaged left maxillary sinus. Globes/orbits: Surgical changes of left scleral band. Globes are intact. Parenchyma/CSF Spaces: No acute large vascular territory infarct.Remote left basal ganglia lacunar infarcts versus dilated perivascular spaces. No mass effect or midline shift. No acute intracranial hemorrhage. No hydrocephalus. Patchy low-attenuation within the periventricular and subcortical white matter commonly attributed to chronic microvascular ischemia in patients of this age.Global cerebral and cerebellar volume loss with ex vacuo ventricular dilatation is age appropriate. Intracranial atherosclerosis. MMODAL Ramirez Gallego MD - 04/07/2025 Interpreted By: Ramirez Gallego, STUDY: CT HEAD WO IV CONTRAST; 04/07/2025 12:50 pm INDICATION: Signs/Symptoms:fall. COMPARISON: None. ACCESSION NUMBER(S): [id number] ORDERING CLINICIAN: MANE MUNGUIA TECHNIQUE: Noncontrast axial CT scan of head was performed. Angled reformats in brain and bone windows were generated. The images were reviewed in bone, brain, blood and soft tissue windows. FINDINGS: Calvarium: Calvarium is intact. Soft tissue swelling overlying the left frontal calvarium/superior orbital rim with few locules of gas concerning for laceration injury and contusion/hematoma Paranasal sinuses and mastoids: Mucosal thickening of the partially imaged left maxillary sinus. Globes/orbits: Surgical changes of left scleral band. Globes are intact. Parenchyma/CSF Spaces: No acute large vascular territory infarct.Remote left basal ganglia lacunar infarcts versus dilated perivascular spaces. No mass effect or midline shift. No acute intracranial hemorrhage. No hydrocephalus. Patchy low-attenuation within the periventricular and subcortical white matter commonly attributed to chronic microvascular ischemia in patients of this age.Global cerebral and cerebellar volume loss with ex vacuo ventricular dilatation is age appropriate. Intracranial atherosclerosis. IMPRESSION: No CT evidence of acute intracranial abnormality. Left frontal/supraorbital scalp contusion and laceration without calvarial fracture. Chronic senescent changes including white matter disease commonly attributed to chronic microvascular ischemia and age-appropriate volume loss. MACRO: None Signed by: Ramirez Gallego 04/07/2025 1:10 PM Dictation workstation: [id number] [facility] Work Phone: CT Head WO contrastOrdered B y: Ramirez Gallego on 04-07-2025 [facility] Work Phone: Laceration Repairon 04-07-20 Mane Munguia DO 04/07/2025 2:38 PM Laceration Repair Performed by: Mane Munguia DO Authorized by: Mane Munguia DO Consent: Consent obtained: Verbal Consent given by: Patient Risks, benefits, and alternatives were discussed: yes Risks discussed: Infection, need for additional repair, poor cosmetic result and poor wound healing Alternatives discussed: No treatment [place] protocol: Procedure explained and questions answered to patient or proxy's satisfaction: yes Relevant documents present and verified: yes Test results available: yes Imaging studies available: yes Required blood products, implants, devices, and special equipment available: yes Site/side marked: yes Immediately prior to procedure, a time out was called: yes Patient identity confirmed: Verbally with patient and arm band Anesthesia: Anesthesia method: None Laceration details: Location: Face Face location: L eyebrow Length (cm): 2 Depth (mm): 1 Exploration: Limited defect created (wound extended): no Hemostasis achieved with: Direct pressure Imaging outcome: foreign body not noted Wound exploration: entire depth of wound visualized Contaminated: no Treatment: Area cleansed with: Saline Amount of cleaning: Standard Debridement: None Undermining: None Scar revision: no Skin repair: Repair method: Tissue adhesive Approximation: Approximation: Close Repair type: Repair type: Simple Post-procedure details: Dressing: Open (no dressing) Procedure completion: Tolerated well, no immediate complications [facility] Work Phone: [facility] Work Phone: No Panel Informationon 04-07 Radiology Study observation (narrative) [facility] Work Phone: XR ELBOW LEFT 3+ VIEWSon XR ELBOW LEFT 3+ VIEWS Interpreted By: Amber Darden, STUDY: XR ELBOW LEFT 3+ VIEWS; ; 04/07/2025 1:28 pm INDICATION: Signs/Symptoms:fall. COMPARISON: None. ACCESSION NUMBER(S): [id number] ORDERING CLINICIAN: MANE MUNGUIA FINDINGS: Left elbow, five views There is no acute fracture or malalignment. Moderate degenerative changes of the radiocapitellar articulation with joint space loss. Moderate soft tissue swelling overlying the olecranon and medial aspect of the elbow joint. There is no significant elbow joint effusion. IMPRESSION: Moderate soft tissue swelling overlying the olecranon and medial aspect of the elbow joint without underlying acute fracture or malalignment. MACRO: None Signed by: Amber Darden 04/07/2025 2:02 PM Dictation workstation: [id number] [facility] XR Elbow - left 3 Viewson Moderate soft tissue swelling overlying the olecranon and medial aspect of the elbow joint without underlying acute fracture or malalignment. MACRO: None Signed by: Amber Darden 04/07/2025 2:02 PM Dictation workstation: [id number] [facility] Interpreted By: Amber Darden, STUDY: XR ELBOW LEFT 3+ VIEWS; ; 04/07/2025 1:28 pm INDICATION: Signs/Symptoms:fall. COMPARISON: None. ACCESSION NUMBER(S): [id number] ORDERING CLINICIAN: MANE MUNGUIA FINDINGS: Left elbow, five views There is no acute fracture or malalignment. Moderate degenerative changes of the radiocapitellar articulation with joint space loss. Moderate soft tissue swelling overlying the olecranon and medial aspect of the elbow joint. There is no significant elbow joint effusion. Amber Tolentino MD - 04/07/2025 Interpreted By: Amber Darden, STUDY: XR ELBOW LEFT 3+ VIEWS; ; 04/07/2025 1:28 pm INDICATION: Signs/Symptoms:fall. COMPARISON: None. ACCESSION NUMBER(S): [id number] ORDERING CLINICIAN: MANE MUNGUIA FINDINGS: Left elbow, five views There is no acute fracture or malalignment. Moderate degenerative changes of the radiocapitellar articulation with joint space loss. Moderate soft tissue swelling overlying the olecranon and medial aspect of the elbow joint. There is no significant elbow joint effusion. IMPRESSION: Moderate soft tissue swelling overlying the olecranon and medial aspect of the elbow joint without underlying acute fracture or malalignment. MACRO: None Signed by: Amber Darden 04/07/2025 2:02 PM Dictation workstation: [id number] [facility] Work Phone: Radiology Study observation (narrative) [facility] Work Phone: XR Elbow - left 3 ViewsOrder ed By: Amber Darden on 04-07-2025 [facility] Work Phone: Urine Cultureon 03-25-2025 [facility] Order Date: 01/13/25 Order Info: 630-4 - CUUR Escherichia fergusonii Ida Count 11,000-25,000 Escherichia fergusonii: REACTION Ampicillin Islt SONA 8 Ampicillin+Sulbac Islt SONA <=2 S Cefepime Islt SONA <=0.12 S cefTRIAXone Islt SONA <=0.25 S Ciprofloxacin Islt SONA <=0.06 S Gentamicin Islt SONA <=1 S levoFLOXacin Islt SONA <=0.12 S Meropenem Islt SONA <=0.25 S Pip+Tazo Islt SONA 16 I TMP SMX Islt SONA <=20 S Normal [facility] Comment on above: Performed By: #### M [id number] #### [facility] Laboratory [address] [place], [address] Urine cultureOrdered By: Paula Huang on 03-23-2025 Bacteria identified Cx Nom (U) Escherichia fergusonii Abnormal [facility] PT D/C Summary (1)on 025 PT D/C Summary (1) [facility] Physical Therapy [address] [place] [address] / REHABILITATION SERVICES DISCHARGE SUMMARY MR#: [id number] Acct: [id number] Name: ALCIDES NICKERSON Rep #: [id number] : 1950 74 From: Nani DARNELLT Referring Dr.: Dr. Braulio Huang MD Status: REG RCR Insurance: MEDICARE PART A B [employer] SR SUPPLEMENT INS Discharge Summary D/C summary: It has been my pleasure to treat ALCIDES NICKERSON referred by Dr. Braulio Huang MD, with the diagnosis of DDD for a total of 9 visit(s). Discharge Date: Please see the following information for a summary of their discharge status. Subjective Subjective: Patient reports that she is back to 100%- doing all of her normal activities and ready for d/c Overall Improvement % Improvement: 100 Objective Objective/Function: Posture: good throughout HR/TR: WNL Balance: 15 seconds ROM: Lumbar: WNL no pain Sensation: WNL to gross touch bilateral LE Strength: Core: fair minus, Hip: Right: 4/5 throughout, Left: 4+/5, Knee: Right: 4/5 Left: 4+/5, Ankle: 4+/5 bilateral Flex: HS: Right: severe, Left: moderate, Gastroc: moderate bilateral Dural s/s: no s/s Goals Goal 1:: Patient will be I with HEP and progression Goal Progress: Goal Met Goal 2:: Patient will report no dural s/s for 1 week Goal Progress: Goal Met Goal 3:: Patient will maintain proper posture t/o tx session to demo increased core s/s Goal Progress: Goal Met Goal 4:: Patient will report 80% improvement Goal Progress: Goal Met Plan Plan: Discharge to I HEP D/C Information d/c sentence: If there are questions or concerns regarding this patient's physical therapy, please feel free to call me at [phone]. Thank you for the referral of this patient. Sincerely, Nani Yao DPT Balance/Gait/Functiona l tests Balance/Special Test Scores Oswestry Low Back Score: 0 Improvement % Improvement: 100 02/19/25 0844 CC: Dr. Braulio Huang MD ELR Signed Normal [facility] Inital Evaluation (1) - PTon 01-22-2025 Inital Evaluation (1) - PT [facility] Physical Therapy [facility] [address] [place] [address]. [address] [place] [address] / REHABILITATION SERVICES INITIAL EVALUATION MR#: [id number] Acct: [id number] Name: ALCIDES NICKERSON Rep #: [id number] : 1950 74 From: Nani DARNELLT Referring Dr.: Dr. Braulio Huang MD Status: REG RCR Insurance: MEDICARE PART A B [employer] SR SUPPLEMENT INS Patient's Visit Information Visit Information Visit Information: ALCIDES NICKERSON is a 74 year old F referred to Physical Therapy by Dr. Braulio Huang MD with a diagnosis of DDD. Date of Evaluation: 01/22/25 Physical Therapist: Nani Yao DPT Visit Plan Frequency: 2x /Week Duration: 4 Weeks Plan: Extension bias- core strength/stabilization - centralization of symptoms HEP Given IE: postural education, lumbar support roll in sitting, prone lying and prone prop Subjective Subjective: Patient reports that for over a month she has had pain- she finally went to the ER- they diagnosed her with a UTI- that helped a little - she has pain in the right side of her back and the right leg goes to sleep and is numb. The pain is there all the time. Worst: 9/10 Agg: the pain is the same all the time. Sitting makes her leg go to sleep. When she is in bed the leg does not go to sleep. She does all of her stuff anyways. Nothing makes the pain better. Sleep: sometimes- side and back sleeper. Describes the pain as not shooting its just there. The foot goes to sleep and is numb and she can't feel it. If she sits sideways and elevates her legs they don't go numb. They took x-rays and it shows mild degenerative disc disease, L3-4 through L5-S1 with narrowing of the disc spaces and small marginal osteophytes. Fully I with all ADL's. No falls or weakness with the leg. PMHx/Meds: in chart. Objective Objective: Posture: forward head, rounded shoulder- can correct but does not maintain- seated posture when slumped increases right leg s/s- when sitting with a towel roll she has no s/s HR/TR: WNL Balance: weight shift but unable to SLS ROM: Lumbar: WNL in all planes but does not report pain, Hip: WNL in all planed- reports discomfort and pulling with full flexion on the right Sensation: WNL to gross touch bilateral LE Strength: Core: fair minus, Hip: Right: 4-/5 throughout, Left: 4+/5, Knee: Right: 4/5 Left: 4+/5, Ankle: 4+/5 bilateral Flex: HS: Right: severe, Left: moderate, Gastroc: moderate bilateral Dural s/s: positive on the right. Prone Lying: abolishes s/s forward flexion: increases s/s Special Tests L/S Slump test left side: Negative L/S Slump test right side: Positive L/S Left Straight Leg Raise: Negative L/S Right Straight Leg Raise: Positive Balance/Special Test Scores Oswestry Low Back Score: 6 Goals Goal 1:: Patient will be I with HEP and progression Goal Time Frame: 4-6 Weeks Goal 2:: Patient will report no dural s/s for 1 week Goal Time Frame: 4-6 Weeks Goal 3:: Patient will maintain proper posture t/o tx session to demo increased core s/s Goal Time Frame: 4-6 Weeks Goal 4:: Patient will report 80% improvement Goal Time Frame: 4-6 Weeks Rehabilitation Potential Physical Therapy Diagnosis: Patient presents with hypomobility- she has decreased LE and core strength/stabilization , flex and muscular endurance leading to poor posture and increased dural s/s and increased pain with ADL's. Rehabilitation Potential: Good Anticipated Interventions Therapeutic Exercise to Include: Strength training, Endurance training, Coordination, Agility training, Body mechanics, Postural training, Flexibilty training, Gait and locomotor training, Neuromotor development, Dynamic Lumbar Stabilization, Rekha Exercises and Scapular Strength/Stabilization For the Purpose of:: To decrease pain and To improve ability to perform ADL's TENS: Yes Cryotherapy (ice pack, ice massage): Yes Thermo therapy (hot pack): Yes Ultrasound (thermal/non thermal): Yes Text: Thank you for the opportunity to evaluate your patient. For Medicare and Medicare HMO plans, please review the plan of care and approve it. It will need to be FAXED BACK to us at [phone] for Medicare purposes. For Medicare only, by signing this I certify the plan of care. Please let me know if there are questions or concerns regarding this plan of care. Physician Signature: Date:__ 01/22/25 1045 CC: Dr. Braulio Huang MD ELR Signed Normal [facility] L/S Spine w Bend Min 6 Vwon 01-13-2025 L/S Spine w Bend Min 6 Vw [facility] Imaging Services [address] [place] [address] L/S Spine w Bend Min 6 Vw MR#: [id number] Acct: [id number] Name: ALCIDES NICKERSON Rep #: [id number] : 1950 F 74 From: Vj Moser MD PCP: Dr. Braulio Huang MD Status: REG CLI Study: L/S Spine w Bend Min 6 Vw Date of Exam: Exam# [id number] Ordering Dr: Braulio Huang MD PROCEDURE: L/S SPINE W BEND MIN 6 VW 01/13/2025 REASON FOR EXAM: BACK PAIN TECHNIQUE: Standing 7 view lumbar spine series including flexion and extension lateral images were obtained. COMPARISON: Lumbar spine 10/03/2022 FINDINGS: There are no compression fractures. There is mild dextroscoliosis of the thoracolumbar spine. There is mild degenerative disc disease, L3-4 through L5-S1 with narrowing of the disc spaces and small marginal osteophytes. There is no significant facet arthropathy. There is no spondylolisthesis. There is no instability with flexion and extension. The SI joints are normal. The paravertebral soft tissues are normal. RAD/L/S Spine w Bend Min 6 Vw IMPRESSION: 1. Mild multilevel degenerative disc disease with mild dextroscoliosis. 2. No evidence of instability with flexion and extension. Reading Location: [id number] CC: Dr. Braulio Huang MD Account Retention Representative: Signed Normal [facility] Urine Cultureon 12-30-2024 [facility] Escherichia coli Ida Count 80,000-100,000 Escherichia coli: REACTION Ampicillin Islt SONA 4 Ampicillin+Sulbac Islt SONA <=2 S Cefepime Islt SONA <=0.12 S cefTRIAXone Islt SONA <=0.25 S Ciprofloxacin Islt SONA <=0.06 S B-Lactamase Extended Susc Islt NEG Gentamicin Islt SONA <=1 S levoFLOXacin Islt SONA <=0.12 S Meropenem Islt SONA <=0.25 S Nitrofurantoin Islt SONA <=16 S Pip+Tazo Islt SONA <=4 S TMP SMX Islt SONA <=20 S Normal [facility] Comment on above: Performed By: #### M 100.2200 #### [facility] Laboratory [address] [place], [place], [id number] [facility] Escherichia coli Ida Count 80,000-100,000 Escherichia coli: REACTION Ampicillin Islt SONA 4 Ampicillin+Sulbac Islt SONA <=2 S Cefepime Islt SONA <=0.12 S cefTRIAXone Islt SONA <=0.25 S Ciprofloxacin Islt SONA <=0.06 S B-Lactamase Extended Susc Islt NEG Gentamicin Islt SONA <=1 S levoFLOXacin Islt SONA <=0.12 S Meropenem Islt SONA <=0.25 S Nitrofurantoin Islt SONA <=16 S Pip+Tazo Islt SONA <=4 S TMP SMX Islt SONA <=20 S Normal [facility] Comment on above: Performed By: #### M 100.2200 #### [facility] Laboratory [address] [place], [place], [id number] Abdomen/Pelvis W IV Cont ONL Yon 12-28-2024 Abdomen/Pelvis W IV Cont ONLY [facility] Imaging Services [address] [place], [place] [address] Abdomen/Pelvis W IV Cont ONLY MR#: [id number] Acct: [id number] Name: ALCIDES NICKERSON Rep #: [id number] : 1950 F 74 From: Adria Allen MD PCP: Dr. Braulio Huang MD Status: REG ER Study: Abdomen/Pelvis W IV Cont ONLY Date of Exam: Exam# [id number] Ordering Dr: Venancio Fish DO EXAM: CT Abdomen and Pelvis With Intravenous Contrast CLINICAL INDICATION: R FLANK PAIN TECHNIQUE: Axial computed tomography images of the abdomen and pelvis with intravenous contrast. This CT exam was performed using one or more of the following dose reduction techniques: automated exposure control, adjustment of the mA and/or kV according to patient size, and/or use of iterative reconstruction technique. COMPARISON: CT Abdomen Pelvis dated 09/20/2022 FINDINGS: LUNG BASES: Unremarkable. No mass. No consolidation. ABDOMEN: LIVER: Hepatomegaly with fatty infiltration. GALLBLADDER AND BILE DUCTS: Unremarkable. No calcified stones. No ductal dilation. PANCREAS: Unremarkable. No mass. No ductal dilation. SPLEEN: Unremarkable. No splenomegaly. ADRENALS: Unremarkable. No mass. KIDNEYS AND URETERS: Small bilateral renal cysts. No stones within either kidney. No hydronephrosis. STOMACH AND BOWEL: Unremarkable. No obstruction. No mucosal thickening. PELVIS: APPENDIX: No findings to suggest acute appendicitis. BLADDER: Unremarkable. No mass. REPRODUCTIVE: Unremarkable as visualized. ABDOMEN and PELVIS: INTRAPERITONEAL SPACE: Unremarkable. No free air. No significant fluid collection. BONES/JOINTS: No acute fracture. No dislocation. SOFT TISSUES: Umbilical hernia containing fat. VASCULATURE: Unremarkable. No abdominal aortic aneurysm. LYMPH NODES: Unremarkable. No enlarged lymph nodes. CT/Abdomen/Pelvis W IV Cont ONLY IMPRESSION: 1. Hepatomegaly with fatty infiltration. 2. Umbilical hernia containing fat. 3. No obstructive uropathy. Reading Location: [facility] CC: Dr. Braulio Huang MD; Dr. Venancio Fish DO Account Retention Representative: Signed Normal [facility] Absolute lymphocyte countOrd ered By: Venancio Fish on 12-28-2024 Lymphocytes Auto (Unsp spec) [#/Vol] 1.81 10*3/uL 0.83-4.51 [facility] Absolute neutrophil countOrd ered By: Venancio Fish on 12-28-2024 Neutrophils (Bld) [#/Vol] 6.0 10*3/uL 2.0-7.7 [facility] Anion gap in Serum or Plasma Ordered By: Venancio Fish on 12-28-2024 Anion gap [Moles/Vol] 12 mmol/L 5-15 [facility] Automated lymphocyte count a s percentage of total leukocytesOrdered By: Venancio Fish on 12-28-2024 Lymphocytes/100 WBC Auto (Unsp spec) 20.9 % 19-41 [facility] BUN/creatinine ratioOrdered By: Venancio Fish on 12-28-2024 Urea nitrogen/Creatinine [Mass ratio] 23.5 mg/mg High 10-20 [facility] Basophil percentageOrdered B y: Venancio Fish on 12-28-2024 Basophils/100 WBC (Bld) 0.5 % 0-1 [facility] Bilirubin Test strip Ql (U)O rdered By: Venancio Fish on 12-28-2024 Bilirubin Ql (U) Negative Negative [facility] Bilirubin, totalOrdered By: Venancio Fish on 12-28-2024 Bilirubin [Mass/Vol] 0.63 mg/dL 0.00-1.30 [facility] CBC W/Diff, Automatedon 12-11 Absolute Lymph 1.81 X10 3/uL Normal 0.83-4.51 [facility] Comment on above: Performed By: #### M 100.2200 #### [facility] Laboratory [address] [place], [address] Absolute Neut 6.0 X10 3/uL Normal 2.0-7.7 [facility] Comment on above: Performed By: #### M 100.2200 #### [facility] [address] [place], [address] Basophils/100 WBC (Bld) 0.5 % Normal 0-1 [facility] Comment on above: Performed By: #### M 100.2200 #### [facility] [address] [place], [address] Eosinophils/100 WBC (Bld) 1.2 % Normal 0-5 [facility] Comment on above: Performed By: #### M 100.2200 #### [facility] [address] [place], [address] Erythrocyte distribution width (RBC) [Ratio] 12.2 % Normal 11.6-14.6 [facility] Comment on above: Performed By: #### M 100.2200 #### [facility] [address] [place], [address] Hematocrit (Bld) [Volume fraction] 44.8 % Normal 37-47 [facility] Comment on above: Performed By: #### M 100.2200 #### [facility] [address] [place], [address] Hemoglobin (Bld) [Mass/Vol] 15.1 g/dL High 12.0-15.0 [facility] Comment on above: Performed By: #### M 100.2200 #### [facility] [address] [place], [address] IG% 0.200 Normal 0.0-0.9 [facility] Comment on above: Result Comment: IG% - Immature Granulocytes (promyelocytes, myelocytes and metamyelocytes) > 1% indicates that a LEFT SHIFT is Present. Performed By: #### M 100.2200 #### [facility] Laboratory [address] [place], [address] Lymphocytes/100 WBC (Bld) 20.9 % Normal 19-41 [facility] Comment on above: Performed By: #### M 100.2200 #### [facility] [address] [place], [address] MCH (RBC) [Entitic mass] 29.9 pg Normal 27.0-32.0 [facility] Comment on above: Performed By: #### M 100.2200 #### [facility] [address] [place], [address] MCHC (RBC) [Mass/Vol] 33.7 g/dL Normal 32-36 [facility] Comment on above: Performed By: #### M 100.2200 #### [facility] [address] [place], [address] MCV (RBC) [Entitic vol] 88.7 fL Normal 81-99 [facility] Comment on above: Performed By: #### M 100.0 #### [facility] [address] [place], [address] Monocytes/100 WBC (Bld) 7.6 % Normal 0-10 [facility] Comment on above: Performed By: #### M 100.2200 #### [facility] [address] [place], [address] Neutrophils/100 WBC (Bld) 69.6 % Normal 47-70 [facility] Comment on above: Performed By: #### M 100.220 #### [facility] [address] [place], [address] Nucleated RBC (Bld) [#/Vol] 0 10*3/uL Normal 0-5 [facility] Comment on above: Performed By: #### M 100.2199 #### [facility] [address] [place], [address] Platelet mean volume (Bld) [Entitic vol] 9.9 fL Normal 6.2-12.0 [facility] Comment on above: Performed By: #### M 100.2199 #### [facility] [address] [place], [address] Platelets (Bld) [#/Vol] 219 10*3/uL Normal 150-450 [facility] Comment on above: Performed By: #### M 100.2200 #### [facility] [address] [place], [address] RBC (Bld) [#/Vol] 5.05 10*6/uL Normal 4.2-5.4 [facility] Comment on above: Performed By: #### M 100.2200 #### [facility] [address] [place], [address] RDW SD 39.8 fl Normal 35.1-43.9 [facility] Comment on above: Performed By: #### M 100.2200 #### [facility] [address] [place], [address] WBC (Bld) [#/Vol] 8.7 10*3/uL Normal 4.4-11.0 [facility] Comment on above: Performed By: #### M 100.2200 #### [facility] [address] [place], [address] Carbon dioxide, total [Moles /volume] in Central venous bloodOrdered By: Venancio Fish on 12-28-2024 CO2 [Moles/Vol] 24.1 mmol/L 21.0-32.0 [facility] Chloride assayOrdered By: Je Fish on 12-28-2024 Chloride [Moles/Vol] 104 mmol/L 98-108 [facility] Comprehensive Metabolic Prof ilon 12-28-2024 Albumin [Mass/Vol] 4.3 g/dL Normal 3.4-4.8 [facility] Comment on above: Performed By: #### M 100.2200 #### [facility] [address] [place], [address] Albumin/Globulin [Mass ratio] 1.4 {ratio} Normal 0.9-2.4 [facility] Comment on above: Performed By: #### M 100.2200 #### [facility] [address] [place], [address] ALK PHOS 110 U/L High 35-104 [facility] Comment on above: Performed By: #### M 100.2200 #### [facility] [address] [place], [address] ALT [Catalytic activity/Vol] 16 U/L Normal <=34 [facility] Comment on above: Performed By: #### M 100.2200 #### [facility] [address] [place], [address] AST [Catalytic activity/Vol] 23 U/L Normal <=31 [facility] Comment on above: Performed By: #### M 100.2200 #### [facility] [address] [place], [address] Bilirubin [Mass/Vol] 0.63 mg/dL Normal 0.00-1.30 [facility] Comment on above: Performed By: #### M 100.2200 #### [facility] [address] [place], [address] BUN/CRE 23.5 RATIO High 10-20 [facility] Comment on above: Performed By: #### M 100.2200 #### [facility] [address] [place], [address] Calcium [Mass/Vol] 9.6 mg/dL Normal 7.6-11.0 [facility] Comment on above: Performed By: #### M 100.2199 #### [facility] [address] [place], [address] Chloride [Moles/Vol] 104 mmol/L Normal 98-108 [facility] Comment on above: Performed By: #### M 100.2199 #### [facility] [address] [place], [address] CO2 [Moles/Vol] 24.1 mmol/L Normal 21.0-32.0 [facility] Comment on above: Performed By: #### M 100.2200 #### [facility] [address] [place], [address] Creatinine [Mass/Vol] 0.97 mg/dL Normal 0.70-1.20 [facility] Comment on above: Performed By: #### M 100.2200 #### [facility] [address] [place], [address] ECRCL 40.24 ml/min Low 50-250 [facility] Comment on above: Performed By: #### M 100.2200 #### [facility] [address] [place], [address] GAP 12 Normal 5-15 [facility] Comment on above: Performed By: #### M 100.2200 #### [facility] [address] [place], [address] GFR/1.73 sq M.predicted among non-blacks MDRD (S/P/Bld) [Vol rate/Area] 61 mL/min/{1.73_m2} Normal >60 [facility] Comment on above: Result Comment: mL/m in/1.73m2 CKD-EPI Creatinine Equation (2020) Performed By: #### M 100.2200 #### [facility] [address] [place], [address] Globulin (S) [Mass/Vol] 3.1 g/dL Normal 2.2-4.2 [facility] Comment on above: Performed By: #### M 100.2200 #### [facility] [address] [place], [address] Glucose [Mass/Vol] 115 mg/dL High 70-99 [facility] Comment on above: Performed By: #### M 100.2200 #### [facility] [address] [place], [address] Potassium [Moles/Vol] 3.9 mmol/L Normal 3.3-5.1 [facility] Comment on above: Performed By: #### M 100.2200 #### [facility] [address] [place], [address] Sodium [Moles/Vol] 141 mmol/L Normal 133-145 [facility] Comment on above: Performed By: #### M 100.2200 #### [facility] [address] [place], [address] T PROT 7.4 g/dL Normal 5.9-8.4 [facility] Comment on above: Performed By: #### M 100.2200 #### [facility] [address], [address] Urea nitrogen [Mass/Vol] 23 mg/dL High - [facility] Comment on above: Performed By: #### M 100.2200 #### [facility] [address] [place], [address] Emergency Department Summary on 12-28-2024 Emergency Department Summary [facility] Medical Records Department [address] [place] [address] Emergency Department Summary 12/28/24 MR#: [id number] Acct: [id number] Name: ALCIDES NICKERSON Rep #: [id number] : 1950 74 From: Venancio Fish DO PCP: Dr. Braulio Huang MD Status:REG ER Location: ED HPI History of Present Illness Chief Complaint: Flank Pain Narrative Narrative: Patient is a 74-year-old female past medical history hypertension, kidney stones who presents to the emergency department chief complaint of right flank pain. Patient states that on Sunday she developed right flank pain and states that she had been extremely nauseous over the last several days. Patient notes that this feels like her previous kidney stone. Patient states that she can handle pain but cannot handle the nausea anymore therefore she came here for evaluation management. States that anytime she tried to put anything to eat in her mouth she immediately was dry heaving. Patient states that this morning she was able to keep down cereal. [facility] Medical History Kidney stones Hypertension Ejection fraction < 50% manipulation under anesthesia Osteoarthritis of left knee Home Medications ???Medication ???Instructions ???Recorded ???Last Taken ???Type prednisolone acetate 1 % eye 1 drp ophthalmic (eye) TID 07/10/2 3 12/28/24 History drops,suspension cephalexin 500 mg capsule 500 mg PO Q12H 5 days #10 caps Unknown Rx ondansetron 4 mg disintegrating 4 mg PO Q6H #30 tabs 12/28/24 Unkn own Rx tablet Allergy/AdvReac Type Severity Reaction Status Date / Time morphine AdvReac Vomiting Verified 12/28/24 10:15 Family History Mother Hypertension Surgical History retina detachment of right eye History of total left knee replacement H/O hysterectomy for benign disease S/P appendectomy Hx of cholecystectomy History of tonsillectomy History of total right knee replacement Social History (Updated 12/28/24 @ 10:50 by Abi Velazquez) housing: house current occupational status: retired pets and animals: Yes Smoking Status: Never smoker ROS ROS ED ROS Narrative Constitutional: Denies fevers, chills, headaches Cardiovascular: Denies chest pain Respiratory: Denies shortness of breath Abdomen: Complains of nausea and vomiting as noted above denies abdominal pain diarrhea : Denies any painful urination, hematuria, polyuria Neurological: Denies any numbness, weakness, tingling Musculoskeletal: Complains of right flank pain as noted above Skin: Denies rashes or lesions EXAM Physical Exam Const Vital Signs: 12/28/24 10:15 12/28/24 12:16 Temperature 98.6 F Temperature Source Oral Pulse Rate 79 72 Respiratory Rate 16 17 Blood Pressure 160/81 H 153/59 H Blood Pressure Mean 107 90 Pulse Ox 98 95 Oxygen Delivery Method Room Air MDM MDM MDM Narrative Medical decision making narrative: Patient is a 74-year-old female who presented to the emergency department with chief complaint of right flank pain. On the differential diagnosis includes but not limited to urolithiasis, nep hrolithiasis, UTI, pyelonephritis, AAA. Once workup is obtained reviewed she will be reevaluated. Patient be given Zofran and IV fluids. Patient CBC reviewed showed no evidence leukocytosis white blood count normal 8.7, hemoglobin is 15.1, platelet count was noted be 219. Patient sodium was 141, potassium normal 3.9, creatinine normal at 0.97. Patient's AST and ALT were normal at 23 and 16 respectively. Patient lipase normal at 35. Patient's urinalysis showed positive nitrates 5, leukocyte esterase greater than and white cells with 3+ bacteria she was given a gram Rocephin urine was sent for culture. Patient CT ab pelvis IV contrast was reviewed showed hepatomegaly with fatty infiltration, umbilical hernia containing fat. No obstructive uropathy noted. Reevaluation the patient she is feeling much better she would like to go home at this point time. Patient be given a prescription for Keflex she was vies follow-up on the urine culture. She was given prescription for Zofran and was vies return with worsening symptoms or concerns. She is agreeable to plan all question concerns answered she is discharged home in stable condition. Lab Data Labs: Laboratory Results - last 24 hr 12/28/24 12/28/24 10:45 11:05 WBC 8.7 RBC 5.05 Hgb 15.1 H Hct 44.8 MCV 88.7 MCH 29.9 MCHC 33.7 RDW Std Deviation 39.8 RDW Coeff of Darnell 12.2 Plt Count 219 MPV 9.9 Immature Gran % (Auto) 0.200 Neut % (Auto) 69.6 Lymph % (Auto) 20.9 Claiborne % (Auto) 7.6 Eos % (Auto) 1. (more content not included)... Normal [facility] Eosinophil percentageOrdered By: Venancio Fish on 12-28-2024 Eosinophils/100 WBC (Bld) 1.2 % 0-5 [facility] Erythrocyte distribution wid th ratioOrdered By: Venancio Fish on 12-28-2024 Erythrocyte distribution width (RBC) [Ratio] 12.2 % 11.6-14.6 [facility] Erythrocyte distribution wid th standard deviationOrdered By: Venancio Fish on 12-28-2024 Erythrocyte distribution width (RBC) [Ratio] 39.8 fl 35.1-43.9 [facility] Glomerular filtration rate ( GFR) estimation/1.73 sq m using serum, plasma, or whole bOrdered By: Venancio Fish on 12-28-2024 GFR/1.73 sq M.predicted among non-blacks MDRD (S/P/Bld) [Vol rate/Area] 61 mL/min/{1.73_m2} >60 [facility] Comment on above: mL/min/1.73m2 CKD-EP I Creatinine Equation (2020) Hematocrit Auto (Bld) [Volum e fraction]Ordered By: Venancio Fish on 12-28-2024 Hematocrit (Bld) [Volume fraction] 44.8 % 37-47 [facility] Hemoglobin measurementOrdere d By: Venancio Fish on 12-28-2024 Hemoglobin (Bld) [Mass/Vol] 15.1 g/dL High 12.0-15.0 [facility] Hyaline casts LM.LPF (Urine sed) [#/Area]Ordered By: Venancio Fish on 12-28-2024 Hyaline casts (Urine sed) [#/Area] 5 /[LPF] 0-5 [facility] Immature granulocytes/100 WB C Auto (Bld)Ordered By: Venancio Fish on 12-28-2024 Immature granulocytes/100 WBC (Bld) 0.200 % 0.0-0.9 [facility] Comment on above: IG% - Immature Granu locytes (promyelocytes, myelocytes and metamyelocytes) > 1% indicates that a LEFT SHIFT is Present. Ketones Test strip Ql (U)Ord ered By: Venancio Fish on 12-28-2024 Ketones Ql (U) Negative Negative [facility] Laboratory - Chemistry and C hemistry - challengeOrdered By: Venancio Fish on 12-28-2024 AST [Catalytic activity/Vol] 23 U/L <32 [facility] Lipaseon 12-28-2024 Lipase [Catalytic activity/Vol] 35 U/L Normal 13-75 [facility] Comment on above: Result Comment: Plea se note: LIPASE revised reference range effective 22. New Lipase methodology. Expected to produce lower values than the previous assay method. NEW Reference Range: 13 - 75 U/L Performed By: #### M 100.2200 #### [facility] [address] [place] [address], [id number] Lipase measurementOrdered By : Venancio Fish on 12-28-2024 Lipase [Catalytic activity/Vol] 35 U/L 13-75 [facility] Comment on above: Please note:LIPASE r evised reference range effective 22. New Lipase methodology. Expected to produce lower values than the previous assay method. NEW Reference Range: 13 - 75 U/L MCV (mean corpuscular volume ) determinationOrdered By: Venancio Fish on 12-28-2024 MCV (RBC) [Entitic vol] 88.7 fL 81-99 [facility] Mean corpuscular hemoglobin (MCH) determinationOrdered By: Venancio Fish on 12-28-2024 MCH (RBC) [Entitic mass] 29.9 pg 27.0-32.0 [facility] Mean corpuscular hemoglobin concentration (MCHC) determinationOrdered By: Venancio Fish on 12-28-2024 MCHC (RBC) [Mass/Vol] 33.7 g/dL 32-36 [facility] Mean platelet volume determi nationOrdered By: Venancio Fish on 12-28-2024 Platelet mean volume (Bld) [Entitic vol] 9.9 fL 6.2-12.0 [facility] Microscopic analysis of urin e for red blood cells (RBC)Ordered By: Venancio Fish on 12-28-2024 Microscopic analysis of urine for red blood cells (RBC) 0-5 SEEN /hpf 0-5 [facility] Monocyte percentageOrdered B y: Venancio Fish on 12-28-2024 Monocytes/100 WBC (Bld) 7.6 % 0-10 [facility] Mucus LM Ql (Urine sed)Order ed By: Venancio Fish on 12-28-2024 Mucus Ql (Urine sed) 0 SEEN /hpf [facility] Neutrophil percentageOrdered By: Venancio Fish on 12-28-2024 Neutrophils/100 WBC (Bld) 69.6 % 47-70 [facility] Nitrite Test strip Ql (U)Ord ered By: Venancio Fish on 12-28-2024 Nitrite Ql (U) Positive High Negative [facility] Nucleated red blood cell per centageOrdered By: Venancio Fish on 12-28-2024 Nucleated RBC/100 WBC (Bld) [Ratio] 0 % 0-5 [facility] Platelet countOrdered By: eJ Fish on 12-28-2024 Platelets (Bld) [#/Vol] 219 10*3/uL 150-450 [facility] Potassium measurement (mass/ volume)Ordered By: Venancio Fish on 12-28-2024 Potassium (Unsp spec) [Mass/Vol] 3.9 mmol/L 3.3-5.1 [facility] Protein Test strip Ql (U)Ord ered By: Venancio Fish on 12-28-2024 Protein Ql (U) 30 mg/dl High Negative [facility] RBC Auto (Bld) [#/Vol]Ordere d By: Venancio Fish on 12-28-2024 RBC (Bld) [#/Vol] 5.05 10*6/uL 4.2-5.4 [facility] Serum creatinine measurement (mass/volume)Ordered By: Venancio Fish on 12-28-2024 Creatinine [Mass/Vol] 0.97 mg/dL 0.70-1.20 [facility] Serum globulin measurementOr dered By: Venancio Fish on 12-28-2024 Globulin (S) [Mass/Vol] 3.1 g/dL 2.2-4.2 [facility] Serum glucose measurement (m ass/volume)Ordered By: Venancio Fish on 12-28-2024 Glucose [Mass/Vol] 115 mg/dL High 70-99 [facility] Serum or plasma alanine laguerre otransferase (ALT) measurementOrdered By: Venancio Fish on 12-28-2024 ALT [Catalytic activity/Vol] 16 U/L <35 [facility] Serum or plasma albumin murali urement (mass/volume)Ordered By: Venancio Fish on 12-28-2024 Albumin [Mass/Vol] 4.3 g/dL 3.4-4.8 [facility] Serum or plasma albumin/glob ulin mass ratioOrdered By: Venancio Fish on 12-28-2024 Albumin/Globulin [Mass ratio] 1.4 {ratio} 0.9-2.4 [facility] Serum or plasma alkaline tulio sphatase measurementOrdered By: Venancio Fish on 12-28-2024 ALP [Catalytic activity/Vol] 110 U/L High 35-104 [facility] Serum or plasma calcium murali urement (mass/volume)Ordered By: Venancio Fish on 12-28-2024 Calcium [Mass/Vol] 9.6 mg/dL 7.6-11.0 [facility] Serum or plasma urea nitroge n measurement (mass/volume)Ordered By: Venancio Fish on 12-28-2024 Urea nitrogen [Mass/Vol] 23 mg/dL High 4-19 [facility] Sodium levelOrdered By: Priyankajessee zelaya Abe on 12-28-2024 Sodium [Moles/Vol] 141 mmol/L 133-145 [facility] Squamous epithelial cells de tection in urine sediment by light microscopyOrdered By: Venancio Fish on 12-28-2024 Epithelial cells.squamous LM Ql (Urine sed) 5-10 SEEN /hpf 5-10 [facility] Total proteinOrdered By: Priyanka Fish on 12-28-2024 Protein [Mass/Vol] 7.4 g/dL 5.9-8.4 [facility] Urinalysis, Completeon 12-28 CAST,HYALINE 5-10 SEEN Normal 0-5 [facility] Comment on above: Order Comment: GEE CTOR TO SPECIFY Performed By: #### M 100.2200 #### [facility] [address] [place], [address] BACTERIA 3+ /hpf Normal None Seen [facility] Comment on above: Order Comment: GEE CTOR TO SPECIFY Performed By: #### M 100.2200 #### [facility] [address] [place], [address] EPI,SQUAMOUS 5-10 SEEN Normal 5-10 [facility] Comment on above: Order Comment: GEE CTOR TO SPECIFY Performed By: #### M 100.2200 #### [facility] [address] [place], [address] RBC 0-5 SEEN Normal 0-5 [facility] Comment on above: Order Comment: GEE CTOR TO SPECIFY Performed By: #### M 100.2200 #### [facility] [address] [place], [address] WBC >100 SEEN Normal 0-5 [facility] Comment on above: Order Comment: GEE CTOR TO SPECIFY Performed By: #### M 100.2200 #### [facility] [address] [place], [address] Mucus Ql (Urine sed) 0 SEEN Normal [facility] Comment on above: Order Comment: COLLE CTOR TO SPECIFY Performed By: #### M 100.4614 #### [facility] [address] [place], [address] Urine clarityOrdered By: Priyanka Fish on 12-28-2024 Clarity (U) Cloudy Clear [facility] Urine color determinationOrd ered By: Venancio Fish on 12-28-2024 Color (U) Yellow Yellow [facility] Urine cultureOrdered By: Priyanka Fish on 12-28-2024 Bacteria identified Cx Nom (U) Escherichia coli Abnormal [facility] Urine glucose detectionOrder ed By: Venancio Fish on 12-28-2024 Glucose Ql (U) Normal mg/dl Normal [facility] Urine leukocyte esterase det ection by dipstickOrdered By: Venancio Fish on 12-28-2024 Leukocyte esterase Test strip Ql (U) 500 /ul High Negative [facility] Urine pHOrdered By: Venancio guadalupe on 12-28-2024 pH (U) 6.0 [pH] 5.0 - 8.0 [facility] Urine sediment bacteria coun t by microscopy (number/high power field)Ordered By: Venancio Fish on 12-28-2024 Bacteria LM.HPF (Urine sed) [#/Area] 3 /[HPF] None Seen [facility] Urine specific gravity measu rementOrdered By: Venancio Fish on 12-28-2024 Specific gravity (U) [Rel density] 1.020 1.002-1.030 [facility] Urine urobilinogen measureme ntOrdered By: Venancio Fish on 12-28-2024 Urobilinogen Ql (U) Normal mg/dl Normal [facility] White blood cell (WBC) count Ordered By: Venancio Fish on 12-28-2024 WBC (Bld) [#/Vol] 8.7 10*3/uL 4.4-11.0 [facility] White blood cell countOrdere d By: Venancio Fish on 12-28-2024 White blood cell count >100 SEEN /hpf 0-5 [facility] SCRN MAMM (CAD)W/ANNIE BILATo n 12-10-2024 SCRN MAMM (CAD)W/ANNIE BILAT [facility] Imaging Services [address] [place], [place] [id number] SCRN MAMM (CAD)W/ANNIE BILAT MR#: [id number] Acct: [id number] Name: ALCIDES NICKERSON Rep #: [id number] : 1950 F 74 From: [place]il Saldana PCP: Dr. Braulio Huang MD Status: REG CLI Study: SCRN MAMM (CAD)W/ANNIE BILAT Date of Exam: 11/13 Exam# [id number] Ordering Dr: Braulio Huang MD EXAM: SCRN MAMM (CAD)W/ANNIE BILAT DATE: 12/10/2024 CLINICAL HISTORY: F, Age 74 y/o , SCREENING FOR BREAST CANCER BREAST CANCER RISK ASSESSMENT: Has not been calculated. TECHNIQUE: Bilateral screening digital breast tomosynthesis with 2D and 3D images. Computer aided detection. COMPARISON: Prior exam(s) dated 03/13/2018 and 11/10/2014. FINDINGS: TISSUE DENSITY: The breast tissue is composed of scattered area of fibroglandular density. Bilateral Breast Mammographic Findings: No suspicious masses, suspicious clustered microcalcifications, architectural distortion or secondary sign of malignancy is identified in either breast. There has been no significant change in either breast in comparison to the prior exam. Benign secretory type calcifications and round microcalcifications are seen in the left breast. BI/SCRN MAMM (CAD)W/ANNIE BILAT IMPRESSION: OVERALL FINAL ASSESSMENT: BIRADS 2 BENIGN FINDING RECOMMENDATION: Routine annual follow-up in 1 Year A letter with findings and recommendations will be mailed to the patient. Reading Location: [id number] CC: Dr. Braulio Huang MD Account Retention Representative: Signed Normal [facility] Absolute lymphocyte countOrd ered By: Braulio Huang on 12-01-2024 Lymphocytes Auto (Unsp spec) [#/Vol] 2.25 10*3/uL 0.83-4.51 [facility] Absolute neutrophil countOrd ered By: Braulio Huang on 12-01-2024 Neutrophils (Bld) [#/Vol] 4.6 10*3/uL 2.0-7.7 [facility] Anion gap in Serum or Plasma Ordered By: Braulio Huang on 12-01-2024 Anion gap [Moles/Vol] 10 mmol/L 5- [facility] Automated lymphocyte count a s percentage of total leukocytesOrdered By: Braulio Huang on 12-01-2024 Lymphocytes/100 WBC Auto (Unsp spec) 28.8 % - [facility] BUN/creatinine ratioOrdered By: Braulio Huang on 12-01-2024 Urea nitrogen/Creatinine [Mass ratio] 18.1 mg/mg 10- [facility] Basophil percentageOrdered B y: Braulio Huang on 12-01-2024 Basophils/100 WBC (Bld) 0.5 % 0-1 [facility] Bilirubin, totalOrdered By: Braulio Huang on 12-01-2024 Bilirubin [Mass/Vol] 0.36 mg/dL 0.00-1.30 [facility] CBC W/Diff, Automatedon 11-12 Absolute Lymph 2.25 X10 3/uL Normal 0.83-4.51 [facility] Comment on above: Performed By: #### L 500.4050, L100.0100 #### [facility] [address] [place], [address] Absolute Neut 4.6 X10 3/uL Normal 2.0-7.7 [facility] Comment on above: Performed By: #### L 500.4050, L100.0100 #### [facility] [address] [place], [address] Basophils/100 WBC (Bld) 0.5 % Normal 0-1 [facility] Comment on above: Performed By: #### L 500.4050, L100.0100 #### [facility] [address] [place], [address] Eosinophils/100 WBC (Bld) 2.7 % Normal 0-5 [facility] Comment on above: Performed By: #### L 500.4050, L100.0100 #### [facility] [address] [place], [address] Erythrocyte distribution width (RBC) [Ratio] 12.2 % Normal 11.6-14.6 [facility] Comment on above: Performed By: #### L 500.4050, L100.0100 #### [facility] [address] [place], [address] Hematocrit (Bld) [Volume fraction] 41.8 % Normal 37-47 [facility] Comment on above: Performed By: #### L 500.4050, L100.0100 #### [facility] [address] [place], [address] Hemoglobin (Bld) [Mass/Vol] 13.7 g/dL Normal 12.0-15.0 [facility] Comment on above: Performed By: #### L 500.4050, L100.0100 #### [facility] [address] [place], [address] IG% 0.400 Normal 0.0-0.9 [facility] Comment on above: Result Comment: IG% - Immature Granulocytes (promyelocytes, myelocytes and metamyelocytes) > 1% indicates that a LEFT SHIFT is Present. Performed By: #### L 500.4050, L100.0100 #### [facility] [address] [place], [address] Lymphocytes/100 WBC (Bld) 28.8 % Normal 19-41 [facility] Comment on above: Performed By: #### L 500.4050, L100.0100 #### [facility] [address] [place], [address] MCH (RBC) [Entitic mass] 30.1 pg Normal 27.0-32.0 [facility] Comment on above: Performed By: #### L 500.4050, L100.0100 #### [facility] [address] [place], [address] MCHC (RBC) [Mass/Vol] 32.8 g/dL Normal 32-36 [facility] Comment on above: Performed By: #### L 500.4050, L100.0100 #### [facility] [address] [place], [address] MCV (RBC) [Entitic vol] 91.9 fL Normal 81-99 [facility] Comment on above: Performed By: #### L 500.4050, L100.0100 #### [facility] [address] [place], [address] Monocytes/100 WBC (Bld) 9.1 % Normal 0-10 [facility] Comment on above: Performed By: #### L 500.4050, L100.0100 #### [facility] [address] [place], [address] Neutrophils/100 WBC (Bld) 58.5 % Normal 47-70 [facility] Comment on above: Performed By: #### L 500.4050, L100.0100 #### [facility] [address] [place], [address] Nucleated RBC (Bld) [#/Vol] 0 10*3/uL Normal 0-5 [facility] Comment on above: Performed By: #### L 500.4050, L100.0100 #### [facility] [address] [place], [address] Platelet mean volume (Bld) [Entitic vol] 10.8 fL Normal 6.2-12.0 [facility] Comment on above: Performed By: #### L 500.4050, L100.0100 #### [facility] [address] [place], [address] Platelets (Bld) [#/Vol] 237 10*3/uL Normal 150-450 [facility] Comment on above: Performed By: #### L 500.4050, L100.0100 #### [facility] [address] [place], [address] RBC (Bld) [#/Vol] 4.55 10*6/uL Normal 4.2-5.4 [facility] Comment on above: Performed By: #### L 500.4050, L100.0100 #### [facility] [address] [place], [address] RDW SD 41.1 fl Normal 35.1-43.9 [facility] Comment on above: Performed By: #### L 500.4050, L100.0100 #### [facility] [address] [place], [address] WBC (Bld) [#/Vol] 7.8 10*3/uL Normal 4.4-11.0 [facility] Comment on above: Performed By: #### L 500.4050, L100.0100 #### [facility] [address] [place], [address] Carbon dioxide, total [Moles /volume] in Central venous bloodOrdered By: Braulio Huang on 12-01-2024 CO2 [Moles/Vol] 25.9 mmol/L 21.0-32.0 [facility] Chloride assayOrdered By: Wil Huang on 12-01-2024 Chloride [Moles/Vol] 107 mmol/L 98-108 [facility] Comprehensive Metabolic Prof ilon 12-01-2024 Albumin [Mass/Vol] 3.9 g/dL Normal 3.4-4.8 [facility] Comment on above: Performed By: #### M 100.2200 #### [facility] [address] [place], [address] Albumin/Globulin [Mass ratio] 1.4 {ratio} Normal 0.9-2.4 [facility] Comment on above: Performed By: #### M 100.2200 #### [facility] [address] [place], [address] ALK PHOS 102 U/L Normal 35-104 [facility] Comment on above: Performed By: #### M 100.2200 #### [facility] [address] [place], [address] ALT [Catalytic activity/Vol] 14 U/L Normal <=34 [facility] Comment on above: Performed By: #### M 100.2200 #### [facility] [address] [place], [address] AST [Catalytic activity/Vol] 19 U/L Normal <=31 [facility] Comment on above: Performed By: #### M 100.2200 #### [facility] [address] [place], [address] Bilirubin [Mass/Vol] 0.36 mg/dL Normal 0.00-1.30 [facility] Comment on above: Performed By: #### M 100.2200 #### [facility] [address] [place], [address] BUN/CRE 18.1 RATIO Normal 10-20 [facility] Comment on above: Performed By: #### M 100.2200 #### [facility] [address] [place], [address] Calcium [Mass/Vol] 9.2 mg/dL Normal 7.6-11.0 [facility] Comment on above: Performed By: #### M 100.2200 #### [facility] [address] [place], [address] Chloride [Moles/Vol] 107 mmol/L Normal 98-108 [facility] Comment on above: Performed By: #### M 100.2200 #### [facility] [address] [place], [address] CO2 [Moles/Vol] 25.9 mmol/L Normal 21.0-32.0 [facility] Comment on above: Performed By: #### M 100.2200 #### [facility] [address] [place], [address] Creatinine [Mass/Vol] 0.90 mg/dL Normal 0.70-1.20 [facility] Comment on above: Performed By: #### M 100.2200 #### [facility] [address] [place], [address] GAP 10 Normal 5-15 [facility] Comment on above: Performed By: #### M 100.2200 #### [facility] [address] [place], [address] GFR/1.73 sq M.predicted among non-blacks MDRD (S/P/Bld) [Vol rate/Area] 67 mL/min/{1.73_m2} Normal >60 [facility] Comment on above: Result Comment: mL/m in/1.73m2 CKD-EPI Creatinine Equation (2020) Performed By: #### M 100.2200 #### [facility] [address] [place], [address] Globulin (S) [Mass/Vol] 2.9 g/dL Normal 2.2-4.2 [facility] Comment on above: Performed By: #### M 100.2200 #### [facility] [address] [place], [address] Glucose [Mass/Vol] 93 mg/dL Normal 70-99 [facility] Comment on above: Performed By: #### M 100.2200 #### [facility] [address] [place], [address] Potassium [Moles/Vol] 4.3 mmol/L Normal 3.3-5.1 [facility] Comment on above: Performed By: #### M 100.2200 #### [facility] [address] [place], [address] Sodium [Moles/Vol] 143 mmol/L Normal 133-145 [facility] Comment on above: Performed By: #### M 100.2200 #### [facility] [address] [place], [address] T PROT 6.7 g/dL Normal 5.9-8.4 [facility] Comment on above: Performed By: #### M 100.2200 #### [facility] [address] [place], [place], [phone] Urea nitrogen [Mass/Vol] 16 mg/dL Normal 4-19 [facility] Comment on above: Performed By: #### M 100.2200 #### [facility] [address] [place], [place], [id number] [phone] Eosinophil percentageOrdered By: Braulio Huang on 12-01-2024 Eosinophils/100 WBC (Bld) 2.7 % 0-5 [facility] Erythrocyte distribution wid th (RBC) [Ratio]Ordered By: Braulio Huang on 12-01-2024 Erythrocyte distribution width (RBC) [Entitic vol] 41.1 fL 35.1-43.9 [facility] Erythrocyte distribution wid th ratioOrdered By: Braulio Huang on 12-01-2024 Erythrocyte distribution width (RBC) [Ratio] 12.2 % 11.6-14.6 [facility] Erythrocyte distribution wid th standard deviationOrdered By: Braulio Huang on 12-01-2024 Erythrocyte distribution width (RBC) [Ratio] 41.1 fl 35.1-43.9 [facility] GFR/1.73 sq M.predicted jason g non-blacks MDRD (S/P/Bld) [Vol rate/Area]Ordered By: Braulio Huang on 12-01-2024 Estimated GFR (MDRD) Non-Af Amer 67 >60 [facility] Comment on above: mL/min/1.73m2 CKD-EP I Creatinine Equation (2020) Glomerular filtration rate ( GFR) estimation/1.73 sq m using serum, plasma, or whole bOrdered By: Braulio Huang on 12-01-2024 GFR/1.73 sq M.predicted among non-blacks MDRD (S/P/Bld) [Vol rate/Area] 67 mL/min/{1.73_m2} >60 [facility] Comment on above: mL/min/1.73m2 CKD-EP I Creatinine Equation (2020) Hematocrit Auto (Bld) [Volum e fraction]Ordered By: Braulio Huang on 12-01-2024 Hematocrit (Bld) [Volume fraction] 41.8 % 37-47 [facility] Hemoglobin measurementOrdere d By: Braulio Huang on 12-01-2024 Hemoglobin (Bld) [Mass/Vol] 13.7 g/dL 12.0-15.0 [facility] Immature granulocytes/100 WB C Auto (Bld)Ordered By: Braulio Huang on 12-01-2024 Immature granulocytes/100 WBC (Bld) 0.400 % 0.0-0.9 [facility] Comment on above: IG% - Immature Granu locytes (promyelocytes, myelocytes and metamyelocytes) > 1% indicates that a LEFT SHIFT is Present. Laboratory - Chemistry and C hemistry - challengeOrdered By: Braulio Huang on 12-01-2024 AST [Catalytic activity/Vol] 19 U/L <32 [facility] Lymphocytes Auto (Unsp spec) [#/Vol]Ordered By: Braulio Huang on 12-01-2024 Lymphocytes (Bld) [#/Vol] 2.25 10*3/uL 0.83-4.51 [facility] Lymphocytes/100 WBC Auto (Un sp spec)Ordered By: Braulio Huang on 12-01-2024 Lymphocytes/100 WBC (Bld) 28.8 % 19-41 [facility] MCV (mean corpuscular volume ) determinationOrdered By: Braulio Huang on 12-01-2024 MCV (RBC) [Entitic vol] 91.9 fL 81-99 [facility] Mean corpuscular hemoglobin (MCH) determinationOrdered By: Braulio Huang on 12-01-2024 MCH (RBC) [Entitic mass] 30.1 pg 27.0-32.0 [facility] Mean corpuscular hemoglobin concentration (MCHC) determinationOrdered By: Braulio Huang on 12-01-2024 MCHC (RBC) [Mass/Vol] 32.8 g/dL 32-36 [facility] Mean platelet volume determi nationOrdered By: Braulio Huang on 12-01-2024 Platelet mean volume (Bld) [Entitic vol] 10.8 fL 6.2-12.0 [facility] Monocyte percentageOrdered B y: Braulio Huang on 12-01-2024 Monocytes/100 WBC (Bld) 9.1 % 0-10 [facility] Neutrophil percentageOrdered By: Braulio Huang on 12-01-2024 Neutrophils/100 WBC (Bld) 58.5 % 47-70 [facility] Nucleated red blood cell per centageOrdered By: Braulio Huang on 12-01-2024 Nucleated RBC/100 WBC (Bld) [Ratio] 0 % 0-5 [facility] Platelet countOrdered By: Wil Huang on 12-01-2024 Platelets (Bld) [#/Vol] 237 10*3/uL 150-450 [facility] Potassium (Unsp spec) [Mass/ Vol]Ordered By: Braulio Huang on 12-01-2024 Potassium [Moles/Vol] 4.3 mmol/L 3.3-5.1 [facility] Potassium measurement (mass/ volume)Ordered By: Braulio Huang on 12-01-2024 Potassium (Unsp spec) [Mass/Vol] 4.3 mmol/L 3.3-5.1 [facility] RBC Auto (Bld) [#/Vol]Ordere d By: Braulio Huang on 12-01-2024 RBC (Bld) [#/Vol] 4.55 10*6/uL 4.2-5.4 [facility] Serum creatinine measurement (mass/volume)Ordered By: Braulio Huang on 12-01-2024 Creatinine [Mass/Vol] 0.90 mg/dL 0.70-1.20 [facility] Serum globulin measurementOr dered By: Braulio Huang on 12-01-2024 Globulin (S) [Mass/Vol] 2.9 g/dL 2.2-4.2 [facility] Serum glucose measurement (m ass/volume)Ordered By: Braulio Huang on 12-01-2024 Glucose [Mass/Vol] 93 mg/dL 70-99 [facility] Serum or plasma alanine laguerre otransferase (ALT) measurementOrdered By: Braulio Huang on 12-01-2024 ALT [Catalytic activity/Vol] 14 U/L <35 [facility] Serum or plasma albumin murali urement (mass/volume)Ordered By: Braulio Huang on 12-01-2024 Albumin [Mass/Vol] 3.9 g/dL 3.4-4.8 [facility] Serum or plasma albumin/glob ulin mass ratioOrdered By: Braulio Huang on 12-01-2024 Albumin/Globulin [Mass ratio] 1.4 {ratio} 0.9-2.4 [facility] Serum or plasma alkaline tulio sphatase measurementOrdered By: Braulio Huang on 12-01-2024 ALP [Catalytic activity/Vol] 102 U/L 35-104 [facility] Serum or plasma calcium murali urement (mass/volume)Ordered By: Braulio Huang on 12-01-2024 Calcium [Mass/Vol] 9.2 mg/dL 7.6-11.0 [facility] Serum or plasma urea nitroge n measurement (mass/volume)Ordered By: Braulio Huang on 12-01-2024 Urea nitrogen [Mass/Vol] 16 mg/dL 4-19 [facility] Sodium levelOrdered By: Braulio Huang on 12-01-2024 Sodium [Moles/Vol] 143 mmol/L 133-145 [facility] Total proteinOrdered By: Paula Huang on 12-01-2024 Protein [Mass/Vol] 6.7 g/dL 5.9-8.4 [facility] White blood cell (WBC) count Ordered By: Braulio Huang on 12-01-2024 WBC (Bld) [#/Vol] 7.8 10*3/uL 4.4-11.0 [facility] .Auto Diffon 08-10-2024 Basophil, Absolute 0.0 10 3/mcL Normal 0.0-0.2 [facility] Comment on above: Performed By: #### G FR, CBC, ADIFF, MDW, ANEU, TROPHS, BMP #### [address] [address] Basophils/100 WBC (Bld) 0.3 % Normal 0.0-2.5 [facility] Comment on above: Performed By: #### G FR, CBC, ADIFF, MDW, ANEU, TROPHS, BMP #### [address] [address] Eosinophil, Absolute 0.0 10 3/mcL Normal 0.0-0.7 [facility] Comment on above: Performed By: #### G FR, CBC, ADIFF, MDW, ANEU, TROPHS, BMP #### [address] [address] Eosinophils/100 WBC (Bld) 0.0 % Normal 0.0-7.0 [facility] Comment on above: Performed By: #### G FR, CBC, ADIFF, MDW, ANEU, TROPHS, BMP #### [address] [address] Lymphocyte, Absolute 1.1 10 3/mcL Normal 0.9-4.3 [facility] Comment on above: Performed By: #### G FR, CBC, ADIFF, MDW, ANEU, TROPHS, BMP #### [address] [address] Lymphocytes/100 WBC (Bld) 7.9 % Low 20.0-40.0 [facility] Comment on above: Performed By: #### G FR, CBC, ADIFF, MDW, ANEU, TROPHS, BMP #### [address] [address] Monocyte, Absolute 0.2 10 3/mcL Normal 0.1-1.4 [facility] Comment on above: Performed By: #### G FR, CBC, ADIFF, MDW, ANEU, TROPHS, BMP #### [address] [address] Monocytes/100 WBC (Bld) 1.6 % Low 2.0-13.0 [facility] Comment on above: Performed By: #### G FR, CBC, QUOC, NANCI, ANEU, TROPHS, BMP #### [address] [address] Neutrophils/100 WBC (Bld) 90.2 % High 50.0-75.0 [facility] Comment on above: Performed By: #### G FR, CBC, QUOC, NANCI, ANEU, TROPHS, BMP #### [address] [place], [place] [address] .GFRon 08-10-2024 GFR 61 ml/min/1.73sqm [facility] Comment on above: Result Comment: GFR Population mean for , Non- Americans Ages 20-29 = 116 mL/min/1.73 sq.m. Ages 30-39 = 107 mL/min/1.73 sq.m. Ages 40-49 = 99 mL/min/1.73 sq.m. Ages 50-59 = 93 mL/min/1.73 sq.m. Ages 60-69 = 85 mL/min/1.73 sq.m. Ages 70+ = 75 mL/min/1.73 sq.m. Chronic Kidney Disease: Less than 60 mL/min/1.73 square meters End Stage Renal Disease: Less than 15 mL/min/1.73 square meters Performed By: #### G FR, CBC, QUOC, NANCI, ANEU, TROPHS, BMP #### [address] [address] GFR Non- 50 ml/min/1.73sqm [facility] Comment on above: Result Comment: GFR Population mean for , Non- Americans Ages 20-29 = 116 mL/min/1.73 sq.m. Ages 30-39 = 107 mL/min/1.73 sq.m. Ages 40-49 = 99 mL/min/1.73 sq.m. Ages 50-59 = 93 mL/min/1.73 sq.m. Ages 60-69 = 85 mL/min/1.73 sq.m. Ages 70+ = 75 mL/min/1.73 sq.m. Chronic Kidney Disease: Less than 60 mL/min/1.73 square meters End Stage Renal Disease: Less than 15 mL/min/1.73 square meters Performed By: #### G FR, CBC, QUOC, NANCI, ANEU, TROPHS, BMP #### [address] [address] .MDWon 08-10-2024 Monocyte Distribution Width 25.06 High 0.00-20.00 [facility] Comment on above: Result Comment: For adults in ED, MDW>20.0 may be associated with a higher risk of sepsis during the first 12hrs of hospital admission Performed By: #### G FR, CBC, QUOC, W, ANEU, TROPHS, BMP #### [address] [address] .NEUABSon 08-10-2024 Neutrophil, Absolute 12.1 10 3/mcL High 2.3-8.1 [facility] Comment on above: Performed By: #### G FR, CBC, NANCI KUMARI, ANEU, TROPHS, BMP #### [address] [address] BMPon 08-10-2024 BUN/Creatinine Ratio 26 ratio Normal 7-27 [facility] Comment on above: Performed By: #### G FR, CBC, QUOC, NANCI, ANEU, TROPHS, BMP #### [address] [address] Calcium [Mass/Vol] 9.4 mg/dL Normal 8.4-10.2 [facility] Comment on above: Performed By: #### G FR, CBC, QUOC, NANCI, ANEU, TROPHS, BMP #### [address] [address] Chloride [Moles/Vol] 102 mmol/L Normal 98-107 [facility] Comment on above: Performed By: #### G FR, CBC, QUOC, W, ANEU, TROPHS, BMP #### [place] [id number] CO2 [Moles/Vol] 32 mmol/L High 23-31 [facility] Comment on above: Performed By: #### G FR, CBC, QUOC, W, ANEU, TROPHS, BMP #### [address] [address] Creatinine [Mass/Vol] 1.07 mg/dL High 0.55-1.02 [facility] Comment on above: Result Comment: Test ing performed on Siemens Dimension EXL analyzer using a modified kinetic Davin technique. Performed By: #### G FR, CBC, QUOC, W, ANEU, TROPHS, BMP #### [address] [address] Electrolyte Balance 7.0 mEq/L Normal 4.0-15.0 [facility] Comment on above: Performed By: #### G FR, CBC, QUOC, W, ANEU, TROPHS, BMP #### [address] [address] Glucose [Mass/Vol] 146 mg/dL High 83-110 [facility] Comment on above: Performed By: #### G FR, CBC, QUOC, W, ANEU, TROPHS, BMP #### [address] [address] Potassium [Moles/Vol] 4.9 mmol/L Normal 3.5-5.1 [facility] Comment on above: Performed By: #### G FR, CBC, QUOC, W, ANEU, TROPHS, BMP #### [address] [address] Sodium [Moles/Vol] 141 mmol/L Normal 136-145 [facility] Comment on above: Performed By: #### G FR, CBC, QUOC, W, ANEU, TROPHS, BMP #### [address] [address] Urea nitrogen [Mass/Vol] 28 mg/dL High 7-18 [facility] Comment on above: Performed By: #### G FR, CBC, QUOC, W, ANEU, TROPHS, BMP #### [address] [address] CBCon 12-29-2024 Erythrocyte distribution width (RBC) [Ratio] 13.6 % Normal 11.5-15.5 [facility] Comment on above: Performed By: #### G FR, CBC, NANCI KUMARI, ANEU, TROPHS, BMP #### [address] [address] Hematocrit (Bld) [Volume fraction] 48.1 % High 34.0-46.0 [facility] Comment on above: Performed By: #### G FR, CBC, NANCI KUMARI, ANEU, TROPHS, BMP #### [place] [address] Hgb 16.0 G/dL Normal 12.0-16.0 [facility] Comment on above: Performed By: #### G FR, CBC, NANCI KUMARI, ANEU, TROPHS, BMP #### [place] [phone] MCH (RBC) [Entitic mass] 30.0 pg Normal 27.0-33.0 [facility] Comment on above: Performed By: #### G FR, CBC, NANCI KUMARI, ANEU, TROPHS, BMP #### [place] [phone] MCHC 33.3 G/dL Normal 32.0-36.0 [facility] Comment on above: Performed By: #### G FR, CBC, NANCI KUMARI, ANEU, TROPHS, BMP #### [address] [address] MCV (RBC) [Entitic vol] 90.1 fL Normal 80.0-99.0 [facility] Comment on above: Performed By: #### G FR, CBC, NANCI KUMARI, ANEU, TROPHS, BMP #### [address] [address] Platelet 233 10 3/mcL Normal 150-450 [facility] Comment on above: Performed By: #### G FR, CBC, NANCI KUMARI, ANEU, TROPHS, BMP #### [address] [place], [place] [address] Platelet mean volume (Bld) [Entitic vol] 7.7 fL Normal 6.6-10.5 [facility] Comment on above: Performed By: #### G FR, CBC, QUOC, NANCI, ANEU, TROPHS, BMP #### [address] [place] [phone] RBC 5.34 10 6/mcL High 4.10-5.30 [facility] Comment on above: Performed By: #### G FR, CBC, QUOC, NANCI, ANEU, TROPHS, BMP #### [address] [place] [phone] WBC 13.4 10 3/mcL High 4.5-10.8 [facility] Comment on above: Performed By: #### G FR, CBC, QUOC, NANCI, ANEU, TROPHS, BMP #### [address] [place], [place] [address] LABORATORYOrdered By: Kristie Porras on 08-10-2024 Appearance (U) Clear (08/10/24 2:43 PM) Normal Clear AO Auto Urine SS Bilirubin Ql (U) Negative (08/10/24 2:43 PM) Normal Negative AO Auto Urine SS Color (U) Yellow (08/10/24 2:43 PM) Normal AO Auto Urine SS Glucose Test strip (U) [Mass/Vol] Negative Normal Negative AO Auto Urine SS Hemoglobin Auto test strip (U) [Mass/Vol] Trace *ABN* (08/10/24 2:43 PM) Invalid Interpretation Code Negative AO Auto Urine SS Ketones Ql (U) Negative Normal Negative AO Auto Urine SS UA Leuk Est Negative (08/10/24 2:43 PM) Normal Negative AO Auto Urine SS UA Nitrite Negative (08/10/24 2:43 PM) Normal Negative AO Auto Urine SS UA pH 5.5 (08/10/24 2:43 PM) Normal 5.0 - 8.0 AO Auto Urine SS UA Protein Negative Normal Negative AO Auto Urine SS UA Spec Grav >=1.030 *ABN* (08/10/24 2:43 PM) Invalid Interpretation Code 1.015-1.025 AO Auto Urine SS UA Specimen Type Clean Catch (08/10/24 2:43 PM) Normal AO Auto Urine SS UA Urobilinogen 0.2 E.U./dL Normal 0.2-1.0 AO Auto Urine SS LABORATORYOrdered By: SYSTEM SYSTEM on 08-10-2024 Basophils (Bld) [#/Vol] 0.0 103/mcL Normal 0.0 - 0.2 10^3/mcL AO Workflow SS Basophils/100 WBC (Bld) 0.3 % Normal 0.0 - 2.5 % AO Workflow SS Calcium [Mass/Vol] 9.4 mg/dL Normal 8.4 - 10. 2 mg/dL AO ADM SS Chloride [Moles/Vol] 102 mmol/L Normal 98 - 10 7 mmol/L AO ADM SS CO2 [Moles/Vol] 32 mmol/L High 23 - 31 mmol/L AO ADM SS Creatinine [Mass/Vol] 1.07 mg/dL High 0.55 - 1.02 mg/dL AO ADM SS Comment on above: Interpretive Data: T esting performed on Siemens Dimension EXL analyzer using a modified kinetic Davin technique. Electrolyte Balance 7.0 mEq/L Normal 4.0 - 15 .0 mEq/L AO ADM SS Eosinophil, Absolute 0.0 103/mcL Normal 0.0 - 0 .7 10^3/mcL AO Workflow SS Eosinophils/100 WBC (Bld) 0.0 % Normal 0.0 - 7.0 % AO Workflow SS Erythrocyte distribution width (RBC) [Ratio] 13.6 % Normal 11.5 - 15.5 % AO Workflow SS GFR/1.73 sq M.predicted among blacks MDRD (S/P/Bld) [Vol rate/Area] 61 ml/min/1.73sqm Invalid Interpretation Code AO Chemistry S Comment on above: Interpretive Data: GFR Population mean for , Non- Americans Ages 20-29 = 116 mL/min/1.73 sq.m. Ages 30-39 = 107 mL/min/1.73 sq.m. Ages 40-49 = 99 mL/min/1.73 sq.m. Ages 50-59 = 93 mL/min/1.73 sq.m. Ages 60-69 = 85 mL/min/1.73 sq.m. Ages 70+ = 75 mL/min/1.73 sq.m. Chronic Kidney Disease: Less than 60 mL/min/1.73 square meters End Stage Renal Disease: Less than 15 mL/min/1.73 square meters GFR/1.73 sq M.predicted among non-blacks MDRD (S/P/Bld) [Vol rate/Area] 50 ml/min/1.73sqm Invalid Interpretation Code AO Chemistry S Comment on above: Interpretive Data: GFR Population mean for , Non- Americans Ages 20-29 = 116 mL/min/1.73 sq.m. Ages 30-39 = 107 mL/min/1.73 sq.m. Ages 40-49 = 99 mL/min/1.73 sq.m. Ages 50-59 = 93 mL/min/1.73 sq.m. Ages 60-69 = 85 mL/min/1.73 sq.m. Ages 70+ = 75 mL/min/1.73 sq.m. Chronic Kidney Disease: Less than 60 mL/min/1.73 square meters End Stage Renal Disease: Less than 15 mL/min/1.73 square meters Glucose [Mass/Vol] 146 mg/dL High 83 - 110 mg/dL AO ADM SS Hematocrit (Bld) [Volume fraction] 48.1 % High 34.0 - 46.0 % AO Workflow SS Hemoglobin (Bld) [Mass/Vol] 16.0 G/dL Normal 12.0 - 16.0 G/dL AO Workflow SS Lymphocytes (Bld) [#/Vol] 1.1 103/mcL Normal 0.9 - 4.3 10^3/mcL AO Workflow SS Lymphocytes/100 WBC (Bld) 7.9 % Low 20.0 - 40.0 % AO Workflow SS MCH (RBC) [Entitic mass] 30.0 pg Normal 27.0 - 33.0 pg AO Workflow SS MCHC 33.3 G/dL Normal 32.0 - 36.0 G/dL AO Workflow SS MCV (RBC) [Entitic vol] 90.1 fL Normal 80.0 - 99.0 fL AO Workflow SS Monocyte distribution width Auto (Bld) [Entitic vol] 25.06 1 High 0.00 - 20.00 AO Workflow SS Comment on above: Result Comment: For adults in ED, MDW>20.0 may be associated with a higher risk of sepsis during the first 12hrs of hospital admission Monocytes (Bld) [#/Vol] 0.2 103/mcL Normal 0.1 - 1.4 10^3/mcL AO Workflow SS Monocytes/100 WBC (Bld) 1.6 % Low 2.0 - 13.0 % AO Workflow SS Neutrophils (Bld) [#/Vol] 12.1 103/mcL High 2.3 - 8.1 10^3/mcL AO Workflow SS Neutrophils/100 WBC (Bld) 90.2 % High 50.0 - 75.0 % AO Workflow SS Platelet mean volume (Bld) [Entitic vol] 7.7 fL Normal 6.6 - 10.5 fL AO Workflow SS Platelets (Bld) [#/Vol] 233 103/mcL Normal 150 - 450 10^3/mcL AO Workflow SS Potassium [Moles/Vol] 4.9 mmol/L Normal 3.5 - 5.1 mmol/L AO ADM SS RBC (Bld) [#/Vol] 5.34 106/mcL High 4.10 - 5.3 0 10^6/mcL AO Workflow SS Sodium [Moles/Vol] 141 mmol/L Normal 136 - 145 mmol/L AO ADM SS Troponin I.cardiac DL <= 0.01 ng/mL [Mass/Vol] 5 ng/L Normal 0 - 51 ng/L AO ADM SS Comment on above: Interpretive Data: H igh Sensitive Troponin I Reference Ranges: Female: 0-51 ng/L Male: 0-76 ng/L Testing performed on Dimension EXL using a homogeneous sandwich chemiluminescent immunoassay based on [employer] technology. Urea nitrogen [Mass/Vol] 28 mg/dL High 7 - 18 mg/dL AO ADM SS Urea nitrogen/Creatinine [Mass ratio] 26 ratio Normal 7 - 27 ratio AO ADM SS WBC (Bld) [#/Vol] 13.4 103/mcL High 4.5 - 10.8 10^3/mcL AO Workflow SS [facility] 08-10-2024 High Sensitivity Troponin I 5 ng/L Normal 0-51 [facility] Comment on above: Result Comment: High Sensitive Troponin I Reference Ranges: Female: 0-51 ng/L Male: 0-76 ng/L Testing performed on Dimension EXL using a homogeneous sandwich chemiluminescent immunoassay based on [employer] technology. Performed By: #### G FR, CBC, QUOC, NANCI, ANEU, TROPHS, BMP #### [address] [address] UAon 08-10-2024 Color (U) Yellow Normal [facility] Comment on above: Performed By: #### U A #### [address] [address] Glucose (U) [Mass/Vol] Negative Normal Negative [facility] Comment on above: Performed By: #### U A #### [address] [address] Ketones Ql (U) Negative Normal Negative [facility] Comment on above: Performed By: #### U A #### [place] [address] UA Appear Clear Normal Clear [facility] Comment on above: Performed By: #### U A #### [address] [address] UA Blood Trace Abnormal Negative [facility] Comment on above: Performed By: #### U A #### [address] [address] UA Leuk Est Negative Normal Negative [facility] Comment on above: Performed By: #### U A #### [address] [address] UA Nitrite Negative Normal Negative [facility] Comment on above: Performed By: #### U A #### [place] [address] UA pH 5.5 Normal 5.0 - 8.0 [facility] Comment on above: Performed By: #### U A #### [address] [address] UA Protein Negative Normal Negative [facility] Comment on above: Performed By: #### U A #### [place] [id number] UA Spec Grav >=1.030 Abnormal 1.015-1.025 [facility] Comment on above: Performed By: #### U A #### [address] [address] UA Specimen Type Clean Catch Normal [facility] Comment on above: Performed By: #### U A #### [address] [address] UA Urobilinogen 0.2 E.U./dL Normal 0.2-1.0 [facility] Comment on above: Performed By: #### U A #### [address] [address] Urobilinogen (U) [Mass/Vol] Negative Normal Negative [facility] Comment on above: Performed By: #### U A #### [address] [address] XR CHEST 1 VIEWon 08-10-2024 XR CHEST 1 VIEW ORIGINAL EXAMINATION: ONE XRAY VIEW OF THE CHEST 08/10/2024 2:32 pm COMPARISON: None. HISTORY: ORDERING SYSTEM PROVIDED HISTORY: Reason for Exam: weakness FINDINGS: The cardiomediastinal silhouette demonstrates a normal appearance. No consolidative opacity is identified. There is no pleural effusion or pneumothorax. No free air seen beneath the level of the diaphragm. The bony thorax appears acutely intact. IMPRESSION: No evidence of an acute process. Interpreted by: Merlin López MD Preliminary Report By: Merlin López MD Electronically signed By Merlin López MD Dictated Date: 08/10/2024 2:54:04 PM Prelim Date: 08/10/2024 2:54:50 PM Sign Date: 08/10/2024 2:54:50 PM Ordering Provider: INDRA LUIS Normal [facility] CBC W/Diff, Automatedon Absolute Lymph 2.31 X10 3/uL Normal 0.83-4.51 [facility] Comment on above: Order Comment: Order Date: 07/16/24 Order Info: [id number] - CBCD Performed By: #### L 100.0100, [id number] #### [facility] [address] [place], [place], [id number] Absolute Neut 6.8 X10 3/uL Normal 2.0-7.7 [facility] Comment on above: Order Comment: Order Date: 07/16/24 Order Info: [id number] - CBCD Performed By: #### L 100.0100, [id number] #### [facility] [address] [place], [address] Basophils/100 WBC (Bld) 0.4 % Normal 0-1 [facility] Comment on above: Order Comment: Order Date: 07/16/24 Order Info: [id number] - CBCD Performed By: #### L 100.0100, [id number] #### [facility] [address] [place], [address] Eosinophils/100 WBC (Bld) 1.1 % Normal 0-5 [facility] Comment on above: Order Comment: Order Date: 07/16/24 Order Info: [id number] - CBCD Performed By: #### L 100.0100, [id number] #### [facility] [address] [place], [address] Erythrocyte distribution width (RBC) [Ratio] 12.7 % Normal 11.6-14.6 [facility] Comment on above: Order Comment: Order Date: 07/16/24 Order Info: [id number] - CBCD Performed By: #### L 100.0100, [id number] #### [facility] [address] [place], [address] Hematocrit (Bld) [Volume fraction] 44.8 % Normal 37-47 [facility] Comment on above: Order Comment: Order Date: 07/16/24 Order Info: [id number] - CBCD Performed By: #### L 100.0100, [id number] #### [facility] [address] [place], [address] Hemoglobin (Bld) [Mass/Vol] 14.3 g/dL Normal 12.0-15.0 [facility] Comment on above: Order Comment: Order Date: 07/16/24 Order Info: [id number] - CBCD Performed By: #### L 100.0100, [id number] #### [facility] [address] [place], [address] IG% 0.300 Normal 0.0-0.9 [facility] Comment on above: Order Comment: Order Date: 07/16/24 Order Info: [id number]- - CBCD Result Comment: IG% - Immature Granulocytes (promyelocytes, myelocytes and metamyelocytes) > 1% indicates that a LEFT SHIFT is Present. Performed By: #### L 100.0100, [id number] #### [facility] [address] [place], [address] Lymphocytes/100 WBC (Bld) 22.9 % Normal 19-41 [facility] Comment on above: Order Comment: Order Date: 07/16/24 Order Info: [id number]- - CBCD Performed By: #### L 100.0100, [id number] #### [facility] [address] [place], [address] MCH (RBC) [Entitic mass] 29.6 pg Normal 27.0-32.0 [facility] Comment on above: Order Comment: Order Date: 07/16/24 Order Info: [id number]- - CBCD Performed By: #### L 100.0100, [id number] #### [facility] [address] [place], [address] MCHC (RBC) [Mass/Vol] 31.9 g/dL Low 32-36 [facility] Comment on above: Order Comment: Order Date: 07/16/24 Order Info: [id number]- - CBCD Performed By: #### L 100.0100, [id number] #### [facility] [address] [place], [address] MCV (RBC) [Entitic vol] 92.8 fL Normal 81-99 [facility] Comment on above: Order Comment: Order Date: 07/16/24 Order Info: 0184-1 - CBCD Performed By: #### L 100.0100, [id number] #### [facility] [address] [place], [address] Monocytes/100 WBC (Bld) 8.3 % Normal 0-10 [facility] Comment on above: Order Comment: Order Date: 07/16/24 Order Info: 0184-1 - CBCD Performed By: #### L 100.0100, L500.4050 #### [facility] [address] [place], [address] Neutrophils/100 WBC (Bld) 67.0 % Normal 47-70 [facility] Comment on above: Order Comment: Order Date: 07/16/24 Order Info: 0184-1 - CBCD Performed By: #### L 100.0100, L500.4050 #### [facility] [address] [place], [address] Nucleated RBC (Bld) [#/Vol] 0 10*3/uL Normal 0-5 [facility] Comment on above: Order Comment: Order Date: 07/16/24 Order Info: 0184-1 - CBCD Performed By: #### L 100.0100, L500.4050 #### [facility] [address] [place], [address] Platelet mean volume (Bld) [Entitic vol] 10.5 fL Normal 6.2-12.0 [facility] Comment on above: Order Comment: Order Date: 07/16/24 Order Info: 0184-1 - CBCD Performed By: #### L 100.0100, L500.4050 #### [facility] [address] [place], [address] Platelets (Bld) [#/Vol] 262 10*3/uL Normal 150-450 [facility] Comment on above: Order Comment: Order Date: 07/16/24 Order Info: 0184-1 - CBCD Performed By: #### L 100.0100, L500.4050 #### [facility] [address] [place], [address] RBC (Bld) [#/Vol] 4.83 10*6/uL Normal 4.2-5.4 [facility] Comment on above: Order Comment: Order Date: 07/16/24 Order Info: 0184- - CBCD Performed By: #### L 100.0100, L500.4050 #### [facility] [address] [place], [address] RDW SD 43.0 fl Normal 35.1-43.9 [facility] Comment on above: Order Comment: Order Date: 07/16/24 Order Info: 0184- - CBCD Performed By: #### L 100.0100, L500.4050 #### [facility] [address] [place], [address] WBC (Bld) [#/Vol] 10.1 10*3/uL Normal 4.4-11.0 [facility] Comment on above: Order Comment: Order Date: 07/16/24 Order Info: 0184- - CBCD Performed By: #### L 100.0100, L500.4050 #### [facility] [address] [place], [address] Comprehensive Metabolic Prof ilon 07-16-2024 Albumin [Mass/Vol] 3.3 g/dL Normal 3.2-5.0 [facility] Comment on above: Order Comment: Order Date: 07/16/24 Order Info: 0786-1 - CMP Performed By: #### L 100.0100, L500.4050 #### [facility] [address] [place], [address] Albumin/Globulin [Mass ratio] 0.8 {ratio} Low 0.9-2.4 [facility] Comment on above: Order Comment: Order Date: 07/16/24 Order Info: 0786-1 - CMP Performed By: #### L 100.0100, L500.4050 #### [facility] [address] [place], [address] ALK P 112 U/L Normal 45-117 [facility] Comment on above: Order Comment: Order Date: 07/16/24 Order Info: 0786-1 - CMP Performed By: #### L 100.0100, L500.4050 #### [facility] [address] [place], [address] ALT [Catalytic activity/Vol] 24 U/L Normal 13-56 [facility] Comment on above: Order Comment: Order Date: 07/16/24 Order Info: 0786-1 - CMP Performed By: #### L 100.0100, L500.4050 #### [facility] [address] [place], [address] AST [Catalytic activity/Vol] 19 U/L Normal 15-37 [facility] Comment on above: Order Comment: Order Date: 07/16/24 Order Info: 0786-1 - CMP Performed By: #### L 100.0100, L500.4050 #### [facility] [address] [place], [address] Bilirubin [Mass/Vol] 0.50 mg/dL Normal 0.20-1.00 [facility] Comment on above: Order Comment: Order Date: 07/16/24 Order Info: 0786-1 - CMP Result Comment: For patients on eltrombopag therapy, use of Dimension [place] TBIL is not recommended. Performed By: #### L 100.0100, L500.4050 #### [facility] [address] [place], [address] BUN/CRE 18.6 RATIO Normal 10-20 [facility] Comment on above: Order Comment: Order Date: 07/16/24 Order Info: 0786-1 - CMP Performed By: #### L 100.0100, L500.4050 #### [facility] [address] [place], [address] CA,Total 9.1 mg/dL Normal 8.5-10.1 [facility] Comment on above: Order Comment: Order Date: 07/16/24 Order Info: 0786-1 - CMP Performed By: #### L 100.0100, [id number] #### [facility] [address] [place], [address] Chloride [Moles/Vol] 105 mmol/L Normal 98-107 [facility] Comment on above: Order Comment: Order Date: 07/16/24 Order Info: 0786-1 - CMP Performed By: #### L 100.0100, [id number] #### [facility] [address] [place], [address] CO2 [Moles/Vol] 28.0 mmol/L Normal 21.0-32.0 [facility] Comment on above: Order Comment: Order Date: 07/16/24 Order Info: 0786-1 - CMP Performed By: #### L 100.0100, [id number] #### [facility] [address] [place], [address] Creatinine [Mass/Vol] 0.92 mg/dL Normal 0.55-1.02 [facility] Comment on above: Order Comment: Order Date: 07/16/24 Order Info: 0786-1 - CMP Result Comment: The validity of the calculated GFR GFRAA in patients over 70 years has not been determined. Clinical correlation is essential. Performed By: #### L 100.0100, L500.4050 #### [facility] [address] [place], [address] EST GFR - AA 77 mL/min Normal >60 [facility] Comment on above: Order Comment: Order Date: 07/16/24 Order Info: 0786-1 - CMP Result Comment: Afri can Montene[place]in GFR Calc Performed By: #### L 100.0100, [id number] #### [facility] [address] [place], [address] GAP 6 Normal 5-15 [facility] Comment on above: Order Comment: Order Date: 07/16/24 Order Info: 0786-1 - CMP Performed By: #### L 100.0100, [id number] #### [facility] [address] [place], [address] GFR/1.73 sq M.predicted among non-blacks MDRD (S/P/Bld) [Vol rate/Area] 64 mL/min/{1.73_m2} Normal >60 [facility] Comment on above: Order Comment: Order Date: 07/16/24 Order Info: 0786-1 - CMP Result Comment: Non- GFR Calc Performed By: #### L 100.0100, L500.4050 #### [facility] [address] [place], [address] Globulin (S) [Mass/Vol] 4.3 g/dL High 2.2-4.2 [facility] Comment on above: Order Comment: Order Date: 07/16/24 Order Info: 0786-1 - CMP Performed By: #### L 100.0100, L500.4050 #### [facility] [address] [place], [address] Glucose [Mass/Vol] 108 mg/dL High 74-106 [facility] Comment on above: Order Comment: Order Date: 07/16/24 Order Info: 0786-1 - CMP Result Comment: Fast ing Glucose result from 100 to 125 mg/dL suggests IMPAIRED HOMEOSTASIS per A.D.A. criteria. Performed By: #### L 100.0100, L500.4050 #### [facility] [address] [place], [address] Potassium [Moles/Vol] 3.9 mmol/L Normal 3.5-5.1 [facility] Comment on above: Order Comment: Order Date: 07/16/24 Order Info: 0786-1 - CMP Performed By: #### L 100.0100, L500.4050 #### [facility] [address] [place], [address] Sodium [Moles/Vol] 140 mmol/L Normal 136-145 [facility] Comment on above: Order Comment: Order Date: 07/16/24 Order Info: 0786-1 - CMP Performed By: #### L 100.0100, [id number] #### [facility] [address] [place], [address] T PROT 7.6 g/dL Normal 6.4-8.2 [facility] Comment on above: Order Comment: Order Date: 07/16/24 Order Info: 0786-1 - CMP Performed By: #### L 100.0100, [id number] #### [facility] [address] [place], [address] Urea nitrogen [Mass/Vol] 17 mg/dL Normal 7-18 [facility] Comment on above: Order Comment: Order Date: 07/16/24 Order Info: 0786-1 - CMP Performed By: #### L 100.0100, L500.4050 #### [facility] [address] [place], [address] Absolute lymphocyte countOrd ered By: Che Brown on 07-10-2023 Lymphocytes Auto (Unsp spec) [#/Vol] 1.33 10*3/uL 0.83-4.51 [facility] Basophil percentageOrdered B y: Che Brown on 07-10-2023 Basophil percentage 50-100 SEEN /hpf 0-5 [facility] Basophils/100 WBC (Bld) 0.3 % 0-1 [facility] Chloride [Moles/Vol] 102 mmol/L 98-107 [facility] Eosinophils/100 WBC (Bld) 0.1 % 0-5 [facility] Glucose [Mass/Vol] 151 mg/dL 74-106 [facility] Comment on above: Fasting Glucose resu lt greater than or equal to 126 mg/dL suggests DIABETES MELLITUS per A.D.A. criteria. Neutrophils (Bld) [#/Vol] 11.0 10*3/uL 2.0-7.7 [facility] Neutrophils/100 WBC (Bld) 79.8 % 47-70 [facility] Potassium [Moles/Vol] 3.6 mmol/L 3.5-5.1 [facility] Sodium [Moles/Vol] 134 mmol/L 136-145 [facility] WBC (Bld) [#/Vol] 13.8 10*3/uL 4.4-11.0 [facility] Bilirubin Test strip Ql (U)O rdered By: Che Brown on 07-10-2023 Bilirubin Ql (U) Negative Negative [facility] Blood erythrocytes count (nu mber/volume)Ordered By: Che Brown on 07-10-2023 RBC (Bld) [#/Vol] 4.78 10*6/uL 4.2-5.4 [facility] Blood hemoglobin measurement (mass/volume)Ordered By: Che Brown on 07-10-2023 Hemoglobin (Bld) [Mass/Vol] 14.1 g/dL 12.0-15.0 [facility] Blood lymphocytes/100 leukoc ytesOrdered By: Che Brown on 07-10-2023 Lymphocytes/100 WBC (Bld) 9.6 % 19-41 [facility] Blood monocytes/100 leukocyt esOrdered By: Che Brown on 07-10-2023 Monocytes/100 WBC (Bld) 9.6 % 0-10 [facility] Blood platelet mean volumeOr dered By: Che Brown on 07-10-2023 Platelet mean volume (Bld) [Entitic vol] 10.4 fL 6.2-12.0 [facility] Determination of erythrocyte mean corpuscular volume (MCV)Ordered By: Che Brown on 07-10-2023 MCV (RBC) [Entitic vol] 91.0 fL 81-99 [facility] Hematocrit Auto (Bld) [Volum e fraction]Ordered By: Che Brown on 07-10-2023 Hematocrit (Bld) [Volume fraction] 43.5 % 37-47 [facility] Influenza virus A and B and SARS-CoV-2 (COVID-19) Ag panel - Upper respiratory specimOrdered By: Che Brown on 07-10-2023 SARS-CoV-2 (COVID-19) RNA GAEL+probe Ql (Resp) [facility] Ketones Test strip Ql (U)Ord ered By: Che Brown on 07-10-2023 Ketones Ql (U) 5 mg/dl Negative [facility] - Chemistry and C hemistry - challengeOrdered By: Che Brown on 07-10-2023 CO2 [Moles/Vol] 26.0 mmol/L 21.0-32.0 [facility] Urea nitrogen/Creatinine [Mass ratio] 19.7 mg/mg 10-20 [facility] - Hematology and Cell countsOrdered By: Che Brown on 07-10-2023 Erythrocyte distribution width (RBC) [Entitic vol] 41.9 fL 35.1-43.9 [facility] Erythrocyte distribution width (RBC) [Ratio] 12.5 % 11.6-14.6 [facility] Immature granulocytes/100 WBC (Bld) 0.600 % 0.0-0.9 [facility] Comment on above: IG% - Immature Granu locytes (promyelocytes, myelocytes and metamyelocytes) > 1% indicates that a LEFT SHIFT is Present. MCH (RBC) [Entitic mass] 29.5 pg 27.0-32.0 [facility] Nucleated RBC/100 WBC (Bld) [Ratio] 0 % 0-5 [facility] MCHC Auto (RBC) [Mass/Vol]Or dered By: Che Brown on 07-10-2023 MCHC (RBC) [Mass/Vol] 32.4 g/dL 32-36 [facility] Mucus LM Ql (Urine sed)Order ed By: Che Brown on 07-10-2023 Mucus Ql (Urine sed) 0 SEEN /hpf [facility] Nitrite Test strip Ql (U)Ord ered By: Che Brown on 07-10-2023 Nitrite Ql (U) Positive Negative [facility] No Panel InformationOrdered By: Che Brown on 07-10-2023 Estimated Creatinine Clearance Calc 31.67 ml/min [facility] Estimated GFR (MDRD) Amer 53 mL/min >60 [facility] Comment on above: GFR Calc Estimated GFR (MDRD) Non-Af Amer 44 mL/min >60 [facility] Comment on above: Non- GFR Calc Troponin I High Sensitivity 6 pg/mL 3.0-54.0 [facility] Comment on above: Please Note: New Yumi t Units and Gender Specific Reference Ranges. For more information see Policy Stat Procedure [place] High Sensitivity Troponin (TNIH) and attachments. Platelets bldOrdered By: Monik Brown on 07-10-2023 Platelets (Bld) [#/Vol] 195 10*3/uL 150-450 [facility] Protein Test strip Ql (U)Ord ered By: Che Brown on 07-10-2023 Protein Ql (U) 100 mg/dl Negative [facility] Serum or plasma calcium murali urement (mass/volume)Ordered By: Che Brown on 07-10-2023 Calcium [Mass/Vol] 9.1 mg/dL 8.5-10.1 [facility] Serum or plasma creatinine m easurement (mass/volume)Ordered By: Che Brown on 07-10-2023 Creatinine [Mass/Vol] 1.27 mg/dL 0.55-1.02 [facility] Comment on above: The validity of the calculated GFR & GFRAA in patients over 70 years has not been determined. Clinical correlation is essential. Serum or plasma urea nitroge n measurement (mass/volume)Ordered By: Che Brown on 07-10-2023 Urea nitrogen [Mass/Vol] 25 mg/dL 7-18 [facility] Squamous epithelial cells de tection in urine sediment by light microscopyOrdered By: Che Brown on 07-10-2023 Epithelial cells.squamous LM Ql (Urine sed) 0-5 SEEN /hpf 5-10 [facility] Thin prep Papanicolaou smear with manual screeningOrdered By: Che Brown on 07-10-2023 Thin prep Papanicolaou smear with manual screening 6 5-15 [facility] Urine blood detectionOrdered By: Che Brown on 07-10-2023 RBC Ql (U) 150 /ul Negative [facility] RBC Ql (U) 0 SEEN /hpf 0-5 [facility] Urine clarityOrdered By: Monik Brown on 07-10-2023 Clarity (U) Cloudy Clear [facility] Urine color determinationOrd ered By: Che Brown on 07-10-2023 Color (U) Yellow Yellow [facility] Urine glucose detectionOrder ed By: Che Brown on 07-10-2023 Glucose Ql (U) Normal mg/dl Normal [facility] Urine leukocyte esterase det ection by dipstickOrdered By: Che Brown on 07-10-2023 Leukocyte esterase Test strip Ql (U) 500 /ul Negative [facility] Urine pHOrdered By: Che mattson on 07-10-2023 pH (U) 5.0 [pH] 5.0 - 8.0 [facility] Urine sediment bacteria coun t by microscopy (number/high power field)Ordered By: Che Brown on 07-10-2023 Bacteria LM.HPF (Urine sed) [#/Area] 2 /[HPF] None Seen [facility] Urine specific gravity measu rementOrdered By: Che Brown on 07-10-2023 Specific gravity (U) [Rel density] 1.020 1.002-1.030 [facility] Urobilinogen Auto test strip Ql (U)Ordered By: Che Brown on 07-10-2023 Urobilinogen Ql (U) Normal mg/dl Normal [facility] Culture, urineOrdered By: Dr Linnette Huang on 08-25-2022 Bacteria identified Cx Nom (U) Positive [facility] Absolute lymphocyte counton 11-30-2021 Lymphocytes Auto (Unsp spec) [#/Vol] 1.97 10*3/uL 0.83-4.51 [facility] Work Phone: Basophil percentageon 2021 Basophils/100 WBC (Bld) 0.7 % 0-1 [facility] Work Phone: Eosinophils/100 WBC (Bld) 3.5 % 0-5 [facility] Work Phone: Neutrophils (Bld) [#/Vol] 4.7 10*3/uL 2.0-7.7 [facility] Work Phone: Neutrophils/100 WBC (Bld) 63.6 % 47-70 [facility] Work Phone: WBC (Bld) [#/Vol] 7.4 10*3/uL 4.4-11.0 [facility] Work Phone: Blood erythrocytes count (nu mber/volume)on 11-30-2021 RBC (Bld) [#/Vol] 4.80 10*6/uL 4.2-5.4 [facility] Work Phone: Blood hemoglobin measurement (mass/volume)on 11-30-2021 Hemoglobin (Bld) [Mass/Vol] 14.1 g/dL 12.0-15.0 [facility] Work Phone: Blood lymphocytes/100 leukoc yteson 11-30-2021 Lymphocytes/100 WBC (Bld) 26.6 % 19-41 [facility] Work Phone: Blood monocytes/100 leukocyt eson 11-30-2021 Monocytes/100 WBC (Bld) 5.5 % 0-10 [facility] Work Phone: [phone] Blood platelet mean volumeon 11-30-2021 Platelet mean volume (Bld) [Entitic vol] 10.1 fL 6.2-12.0 [facility] Work Phone: Determination of erythrocyte mean corpuscular volume (MCV)on 11-30-2021 MCV (RBC) [Entitic vol] 90.4 fL 81-99 [facility] Work Phone: Hematocrit Auto (Bld) [Volum e fraction]on 11-30-2021 Hematocrit (Bld) [Volume fraction] 43.4 % 37-47 [facility] Work Phone: Laboratory - Hematology and Cell countson 11-30-2021 Erythrocyte distribution width (RBC) [Entitic vol] 41.2 fL 35.1-43.9 [facility] Work Phone: Erythrocyte distribution width (RBC) [Ratio] 12.5 % 11.6-14.6 [facility] Work Phone: Immature granulocytes/100 WBC (Bld) 0.100 % 0.0-0.9 [facility] Work Phone: Comment on above: IG% - Immature Granu locytes (promyelocytes, myelocytes and metamyelocytes) > 1% indicates that a LEFT SHIFT is Present. MCH (RBC) [Entitic mass] 29.4 pg 27.0-32.0 [facility] Work Phone: Nucleated RBC/100 WBC (Bld) [Ratio] 0 % 0-5 [facility] Work Phone: MCHC Auto (RBC) [Mass/Vol]on 11-30-2021 MCHC (RBC) [Mass/Vol] 32.5 g/dL 32-36 [facility] Work Phone: Platelets bldon 11-30-2021 Platelets (Bld) [#/Vol] 226 10*3/uL 150-450 [facility] Work Phone: CNOVon 04-24-2021 CNOV Office Visit (UCWSTR ) ALCIDES NICKERSON ([id number]) 1950 F Date Time Provider Department 04/24/21 11:15 AM ALTHEA BRYANT [facility] During your visit today, we recorded the following information about you: Temperature Pulse Respiration Blood pressure 97.9 degrees 92/minute 18/minute 140/80 Weight 65.3 kg Althea Bryant PA-C 04/24/2021 11:43 AM Signed ASSESSMENT/PLAN: 1. Sinus congestion - ICD9: 478.19, ICD10: R09.81 (primary diagnosis) 2. Seasonal allergies - ICD9: 477.9, ICD10: J30.2 - Start using Flonase for the next 2-3 weeks - Use Claritin D as needed for congestion - Use Saline nasal spray as needed for congestion - Supportive care with plenty of fluids, rest, and tylenol and motrin as needed for pain and/or fever - Follow up with your Primary physician in 2 weeks if symptoms persist or worsen. HORACIO Delcid PA-C 04/24/2021 12:10 PM Signed Subjective 70 y/o female Pt c/o sneezing and sinus congestion since last night. No headache, fever, chills, cough, myalgias, fatigue, loss of taste/smell. Has h/o seasonal allergies but hasn't been taking anything at home. Pt has not used anything for the symptoms . The history is provided by the patient. Review of Systems Constitutional: Negative for chills, fever and malaise/fatigue. HENT: Positive for congestion. Negative for ear pain, sinus pain and sore throat. Eyes: Negative for discharge. Respiratory: Negative for cough, sputum production, shortness of breath and wheezing. Cardiovascular: Negative for chest pain. Gastrointestinal: Negative for abdominal pain, nausea and vomiting. Musculoskeletal: Negative for myalgias and neck pain. Skin: Negative for rash. Neurological: Negative for headaches. Psychiatric/Behavioral : The patient is not nervous/anxious. Objective BP 140/80 Pulse 92 Temp 36.6 ?C (97.9 ?F) Resp 18 Wt 65.3 kg (144 lb) SpO2 97% Physical Exam Vitals and nursing note reviewed. Constitutional: General: She is not in acute distress. Appearance: Normal appearance. She is not ill-appearing. HENT: Head: Normocephalic and atraumatic. Right Ear: Tympanic membrane, ear canal and external ear normal. Left Ear: Tympanic membrane, ear canal and external ear normal. Nose: Nose normal. Mouth/Throat: Mouth: Mucous membranes are moist. Pharynx: Oropharynx is clear. No oropharyngeal exudate. Cardiovascular: Rate and Rhythm: Normal rate and regular rhythm. Heart sounds: Normal heart sounds. No murmur heard. No gallop. Pulmonary: Effort: Pulmonary effort is normal. No respiratory distress. Breath sounds: Normal breath sounds. No wheezing. Musculoskeletal: General: Normal range of motion. Cervical back: Normal range of motion and neck supple. Lymphadenopathy: Cervical: No cervical adenopathy. Skin: General: Skin is warm and dry. Neurological: Mental Status: She is alert and oriented to person, place, and time. Psychiatric: Mood and Affect: Mood and affect normal. Behavior: Behavior normal. Thought Content: Thought content normal. Judgment: Judgment normal. ASSESSMENT/PLAN: 1. Sinus congestion - ICD9: 478.19, ICD10: R09.81 (primary diagnosis) 2. Seasonal allergies - ICD9: 477.9, ICD10: J30.2 - Start using Flonase for the next 2-3 weeks - Use Claritin D as needed for congestion - Use Saline nasal spray as needed for congestion - Supportive care with plenty of fluids, rest, and tylenol and motrin as needed for pain and/or fever - Follow up with your Primary physician in 2 weeks if symptoms persist or worsen. Althea Bryant PA-C Referring Provider: SELF [200] Allergies As of Date: 04/24/2021 Noted Allergy Reaction MORPHINE 06/04/2016 11 - Vomiting Date Reviewed: 04/24/2021 Reviewed by: Althea Bryant PA-C - Fully Assessed Reason for Visit: Head Congestion [234] Cmt: drainage, headache x 1 day Primary Visit Diagnosis:Sinus congestion [R09.81] Other Visit Diagnosis:Seasonal allergies [J30.2] Order(s):fluticasone (FLONASE) 50 mcg/actuation nasal sprayUse 2 Sprays in each nostril once daily.Disp: 15.8 mLRfl: 0 loratadine-pseudoephed rine ER (CLARITIN-D 12) 5-120 mg per tabletTake 1 tablet by mouth twice daily.Disp: 20 tabletRfl: 0 Prescriptions as of 04/24/2021 - fluticasone (FLONASE) 50 mcg/actuation nasal spray Use 2 Sprays in each nostril once daily. - loratadine-pseudoephed rine ER (CLARITIN-D 12) 5-120 mg per tablet Take 1 tablet by mouth twice daily. - lisinopril (PRINIVIL) 10 mg tablet Take 10 mg by mouth once daily. - meloxicam (MOBIC) 15 mg tablet Take 15 mg by mouth once daily. Problem List As Of Date: 04/24/2021 (None) Other instructions from your clinician: ASSESSMENT/PLAN: 1. Sinus congestion - ICD9: 478.19, ICD10: R09.81 (primary diagnosis) 2. Seasonal allergies - ICD9: 477.9, ICD10: J30.2 - Start using Flonase for the next (more content not included)... Normal [facility] .Urinalysis Microscopic (AO) on 05-15-2020 RBC (U) [#/Vol] LOADED Abnormal None Seen [facility] ([place]) Comment on above: Performed By: #### U A, UAMICAO #### [address] [address] UA Bacteria 2+ /hpf Abnormal [facility] ([place]) Comment on above: Performed By: #### U A, UAMICAO #### [address] [address] UA Mucous 1+ /hpf Normal [facility] ([place]) Comment on above: Performed By: #### U A, UAMICAO #### [address] [address] UA Squam Epithelial 0-5 Abnormal None Seen [facility] ([place]) Comment on above: Performed By: #### U A, UAMICAO #### [address] [address] UA WBC LOADED Abnormal None Seen [facility] ([place]) Comment on above: Performed By: #### U A, UAMICAO #### [address] [address] [address] ABDOMEN/PELVIS W/O CONTRA STon 05-15-2020 CT ABDOMEN/PELVIS W/O CONTRAST ORIGINAL COMPUTED TOMOGRAPHY OF THE ABDOMEN AND PELVIS WITHOUT IV CONTRAST (STONE PROTOCOL) Clinical Statement: Right-sided abdominal pain, nausea and vomiting COMPARISON: None. This exam was performed according to our departmental dose optimization program, and includes the following measures where applicable: automated exposure control, adjustment of the mAs and/or kVp according to patient size and/or exam, and an iterative reconstruction algorithm. FINDINGS: The renal stone protocol was utilized. The lack of intravenous and oral contrast will limit evaluation of soft tissue abnormalities in the abdominal viscera. The kidneys are normal in size and shape. Cortical thinning is present bilaterally. No intrarenal stones or renal mass is identified. The ureters are normal in course. Moderate ureteral pelvocaliectasis is present on the RIGHT extending to a 4 mm stone at the RIGHT ureterovesical junction. Urinary bladder is unremarkable. No pelvic mass or free fluid is seen. Prostate gland is normal in size. No abnormality is seen in the visualized portions of the unenhanced liver, spleen, pancreas or adrenal glands. Gallbladder is either contracted or surgically absent. The aorta is normal in size. No obvious mesenteric or bowel abnormalities are seen. In the visualized portions of the lower lungs on the pulmonary windows, no abnormalities are seen. IMPRESSION: 4 mm stone RIGHT ureterovesical junction with moderate hydronephrosis. Interpreted By: Santino Law MD Preliminary Report By: Santino Law MD Electronically Signed By: Santino Law MD Dictated Date: 05/15/2020 2:57:47 AM Prelim Date: 05/15/2020 2:57:47 AM Sign Date: 05/15/2020 3:03:46 AM Ordering Provider:Sawyer Staton [facility] ([place]) UAon 05-15-2020 Color (U) Yellow Normal [facility] ([place]) Comment on above: Performed By: #### U A UAMICAO #### [address] [address] Glucose (U) [Mass/Vol] Negative Normal Negative [facility] ([place]) Comment on above: Performed By: #### U A [place]AM[place]O #### [address] [address] Ketones Ql (U) Negative Normal Negative [facility] ([place]) Comment on above: Performed By: #### U A, UAMICAO #### [address] [address] UA Appear Slightly Cloudy Abnormal Clear [facility] ([place]) Comment on above: Performed By: #### U A, UAMICAO #### [address] [address] UA Blood Large Abnormal Negative [facility] ([place]) Comment on above: Performed By: #### U A, UAMICAO #### [address] [address] UA Leuk Est Moderate Abnormal Negative [facility] ([place]) Comment on above: Performed By: #### U A, UAMICAO #### [address] [address] UA Nitrite Positive Abnormal Negative [facility] ([place]) Comment on above: Performed By: #### U A, UAMICAO #### [address] [address] UA pH 5.0 Normal 5.0 - 8.0 [facility] ([place]) Comment on above: Performed By: #### U A, UAMICAO #### [address] [address] UA Protein 30 mg/dL Normal Negative [facility] ([place]) Comment on above: Performed By: #### U A, UAMICAO #### [address] [address] UA Spec Grav 1.020 Normal 1.015-1.025 [facility] ([place]) Comment on above: Performed By: #### U A, UAMICAO #### [address] [address] UA Specimen Type Clean Catch Normal [facility] ([place]) Comment on above: Performed By: #### U A, UAMICAO #### [address] [address] UA Urobilinogen 0.2 E.U./dL Normal 0.2-1.0 [facility] ([place]) Comment on above: Performed By: #### U A, UAMICAO #### [place] [id number] Urobilinogen Qn (U) Negative Normal Negative [facility] ([place]) Comment on above: Performed By: #### U KUNAL Cano #### Angella [address] [address] Vital Signs Date Time Vital Sign Value Performing Clinician Facility 04-07-2025 14:36-0400 Diastolic blood pressure 77 mm[Hg] Mane Munguia DO Work Phone: [facility] 04-07-2025 14:36-0400 Heart rate 84 /min Mane Munguia DO Work Phone: [facility] 04-07-2025 14:36-0400 Respiratory rate 18 /min Mane Munguia DO Work Phone: [facility] 04-07-2025 14:36-0400 SaO2% (BldA) [Mass fraction] 96 % Mane Munguia DO Work Phone: [facility] 04-07-2025 14:36-0400 Systolic blood pressure 174 mm[Hg] Mane Munguia DO Work Phone: [facility] 04-07-2025 12:35-0400 Body height 157.5 cm Mane Munguia DO Work Phone: [facility] 04-07-2025 12:35-0400 Body mass index (BMI) [Ratio] 23.78 kg/m2 Mane Munguia DO Work Phone: [facility] 04-07-2025 12:35-0400 Body temperature 97.2 [degF] Mane Munguia DO Work Phone: [facility] 04-07-2025 12:35-0400 Body weight 58.97 kg Mane Munguia DO Work Phone: [facility] 12-28-2024 12:33-0400 Diastolic blood pressure 59 mm[Hg] Dr. Braulio Huang MD Work Phone: [facility] 12-28-2024 12:33-0400 Heart rate 86 /min Dr. Braulio Huang MD Work Phone: [facility] 12-28-2024 12:33-0400 Respiratory rate 18 /min Dr. Braulio Huang MD Work Phone: [facility] 12-28-2024 12:33-0400 SaO2% (BldA) [Mass fraction] 98 % Dr. Braulio Huang MD Work Phone: [facility] 12-28-2024 12:33-0400 Systolic blood pressure 153 mm[Hg] Dr. Braulio Huang MD Work Phone: [facility] 12-28-2024 10:15-0400 Body height 157.[address] Braulio Huang MD Work Phone: [facility] 12-28-2024 10:15-0400 Body mass index (BMI) [Ratio] 23.7 kg/m2 Dr. Braulio Huang MD Work Phone: [facility] 12-28-2024 10:15-0400 Body temperature 98.6 [degF] Dr. Braulio Huang MD Work Phone: [facility] 12-28-2024 10:15-0400 Body weight 58.[address] Braulio Huang MD Work Phone: [facility] 08-10-2024 17:19-0500 Diastolic Blood Pressure Non-Invasive 74 mm[Hg] INDRA QUEVEDOBree [facility] 08-10-2024 17:19-0500 Heart rate 73 /min INDRA LUIS DO [facility] 08-10-2024 17:19-0500 Respiratory rate 18 /min INDRA QUEVEDOBree [facility] 08-10-2024 17:19-0500 Systolic Blood Pressure Non-Invasive 157 mm[Hg] INDRA QUEVEDOBree RODRIGUEZ [facility] 08-10-2024 14:05-0500 Blood Pressure Cuff Size INDRA QUEVEDOOrgenesis [facility] 08-10-2024 14:05-0500 Blood Pressure Location INDRA QUEVEDOOrgenesis [facility] 08-10-2024 14:05-0500 Blood Pressure Method INDRA QUEVEDOEasydiagnosis [facility] 08-10-2024 14:05-0500 Body temperature 98.06 [degF] INDRA QUEVEDOOrgenesis [facility] 08-10-2024 14:05-0500 Diastolic Blood Pressure Non-Invasive 103 mm[Hg] INDRA QUEVEDOEasydiagnosis [facility] 08-10-2024 14:05-0500 Heart rate 103 /min INDRA QUEVEDOEasydiagnosis [facility] 08-10-2024 14:05-0500 Respiratory rate 20 /min INDRA QUEVEDOEasydiagnosis [facility] 08-10-2024 14:05-0500 Systolic Blood Pressure Non-Invasive 167 mm[Hg] INDRA QUEVEDOEasydiagnosis [facility] 07-10-2023 21:13-0500 Diastolic blood pressure 65 mm[Hg] [facility] 07-10-2023 21:13-0500 Heart rate 80 /min [facility] 07-10-2023 21:13-0500 Respiratory rate 18 /min [facility] 07-10-2023 21:13-0500 SaO2% (BldA) [Mass fraction] 97 % [facility] 07-10-2023 21:13-0500 Systolic blood pressure 120 mm[Hg] [facility] 07-10-2023 18:14-0500 Body height 157.48 cm [facility] 07-10-2023 18:14-0500 Body mass index (BMI) [Ratio] 25.9 kg/m2 [facility] 07-10-2023 18:14-0500 Body temperature 98 [degF] [facility] 07-10-2023 18:14-0500 Body weight 64.3 kg [facility] Encounters Encounter Date Encounter Type Care Provider Facility Start: 06-08-2025 End: 06-08-2025 ambulatory Braulio Huang Facility:[facility] Start: 04-07-2025 End: 04-07-2025 Emergency department patient visit Mane Munguia DO Work Phone: [facility] Emergency Medicine Comment on above: Head injury, initial encounter (Primary Dx); Facial laceration, initial encounter; Contusion of left elbow, initial encounter Start: 03-23-2025 End: 03-23-[address] Braulio Huang MD Work Phone: -Laboratory [place] Start: 03-23-2025 End: 03-23-[address] Braulio Huang MD -Laboratory [facility] Start: 03-23-2025 End: 03-23-2025 ambulatory Braulio Huang Facility:[facility] Start: 02-19-2025 End: 02-19-[address] Braulio Huang MD Work Phone: -Physical Therapy Start: 02-19-2025 End: 02-19-[address] Braulio Huang MD -Physical Therapy Work Phone: Start: 01-13-2025 End: 01-13-[address] Braulio Huang MD Work Phone: [facility] Work Phone: Start: 01-13-2025 End: 01-13-[address] Braulio Huang MD -Radiology [facility] Work Phone: Start: 01-13-2025 End: 01-13-2025 ambulatory Braulio Huang Facility:[facility] Start: 12-28-2024 End: 12-28-2024 Emergency department patient visit Dr. Braulio Huang MD Work Phone: -Emergency Department Work Phone: Start: 12-10-2024 End: 12-10-[address] Braulio Huang MD -Outpatient Breast Imaging Work Phone: Start: 12-10-2024 End: 12-10-2024 ambulatory Braulio Huang Facility:[facility] Start: 12-01-2024 End: 12-01-[address] Braulio Huang MD Work Phone: [facility] Work Phone: Start: 12-01-2024 End: 12-01-[address] Braulio Huang MD -Laboratory, [facility] Start: 12-01-2024 End: 12-01-2024 ambulatory Braulio Huang Facility:[facility] Start: 08-10-2024 End: 08-10-2024 Emergency department patient visit INDRA LUIS DO [facility] Start: 07-16-2024 End: 07-16-2024 ambulatory Nani Stover NP Facility:[facility] Start: 07-10-2023 End: 07-10-2023 Emergency department patient visit [facility]-Emergency Department Work Phone: Start: 10-11-2022 End: 10-11-2022 ambulatory [facility] Work Phone: Start: 10-11-2022 End: 10-11-2022 Discharged Recurring [facility]-Physical Therapy Start: 10-11-2022 Registered Recurring [facility]-Physical Therapy Start: 10-03-2022 End: 10-03-2022 ambulatory [facility] Work Phone: Start: 10-03-2022 End: 10-03-2022 Patient encounter procedure [facility]-Radiology, [place] Start: 08-24-2022 End: 08-24-2022 ambulatory [facility] Work Phone: Start: 08-24-2022 End: 08-24-2022 Patient encounter procedure [facility]-Laboratory, Specimen Start: 11-30-2021 End: 11-30-2021 Patient encounter procedure [facility]-Laboratory, [place] Family Procedures Date Procedure Procedure Detail Performing Clinician Start: 04-07-2025 Radex elbow complete minimum 3 views Mane Munguia DO Work Phone: Start: 04-07-2025 Ct cervical spine w/ o contrast material Mane Munguia DO Work Phone: Start: 04-07-2025 Ct head/brain w/o co ntrast material Mane Munguia DO Work Phone: Start: 04-07-2025 Simple repair f/e/e/ n/l/m 2.5cm/< Mane Munguia DO Work Phone: Start: 03-23-[address] Braulio Huang MD Work Phone: Start: 01-13-2025 Complete x-ray serie s of lumbar spine with bending views Dr. Braulio Huang MD Work Phone: Start: 12-28-[address] Braulio Huang MD Work Phone: Start: 12-28-2024 Urnls dip stick/tabl et reagent auto microscopy Dr. Braulio Huang MD Work Phone: Start: 12-28-[address] Braulio Huang MD Work Phone: Start: 12-28-2024 Computed tomography of abdomen and pelvis with intravenous contrast Dr. Braulio Huang MD Work Phone: Start: 12-10-2024 Screening mammography Cailin Huang MD Work Phone: Start: 07-10-2023 Plain chest X-ray Start: 07-10-2023 SARS-CoV-2 & FLU Ant igen (Rapid) Start: 10-03-2022 X-ray of lumbosacral spine Urine culture Plan of Treatment Date Care Activity Detail Author Start: 2025 RSV High Risk: (Elderly (60+) or Population) (1 - 1-dose 75+ series) RSV High Risk: (Elderly (60+) or Population) (1 - 1-dose 75+ series) [facility] Start: 04-18-2025 Screening for malignant neoplasm of colon [facility] Start: 04-13-2025 Influenza vaccination Influenza Vaccine (#1) [facility] Start: 12-28-2024 Bacteria identified in Urine by Culture Urine Culture [facility] Start: 12-28-2024 End: 12-28-2024 [facility] Start: 12-28-2024 [facility] Start: 04-13-2024 COVID-19 Vaccine ( season) COVID-19 Vaccine ( season) [facility] Start: 07-10-2023 [facility] Start: 07-10-2023 [facility] Start: 07-10-2023 Bacteria identified in Urine by Culture Urine Culture [facility] Start: 11-28-2015 Screening for osteoporosis Bone Density Scan [facility] Start: 2000 Pneumococcal vaccination Pneumococcal Vaccine (1 of 1 - PCV) [facility] Start: 2000 Zoster Vaccines (1 of 2) Zoster Vaccines (1 of 2) [facility] Start: 1990 Screening for malignant neoplasm of breast Mammogram [facility] Start: 1972 DTaP/Tdap/Td Vaccines (1 - Tdap) DTaP/Tdap/Td Vaccines (1 - Tdap) [facility] Start: 1968 Hepatitis C screening Hepatitis C Screening [facility] Start: [birth year]28-1951 MMR Vaccines (1 of 1 - Standard series) MMR Vaccines (1 of 1 - Standard series) [facility] Start: 1950 Lipid panel Lipid Panel [facility] Start: 1950 Medicare Annual Wellness Visit Medicare Annual Wellness Visit (AWV) [facility] Start: 1950 Screening for malignant neoplasm of colon [facility] Patient Education Urinary Tract Infections in Women [facility] Work Phone: Patient referral [facility] Work Phone: Urine culture [facility] Urine culture [facility] Immunizations Immunization Date Immunization Notes Care Provider Jose wall 04-12-2024 influenza virus vaccine, unspecified formulation Mane Munguia DO Work Phone: [facility] Work Phone: Payers Date Payer Category Payer Private Health Insurance [id number] 2024 Self-pay [id number] 2020 Medicare supplementa l policy (as second payer) [employer] S[employer] [id number] 2020 Private Health Insurance CLI [id number] 2017 Medicare [id number] 2017 Medicare [id number] 2015 Unknown [id number] 1950 Unknown [id number] 1950 Unknown [id number] Unknown [id number] Unknown [id number] Unknown [id number] Unknown [id number] Unknown [id number] Unknown [id number] Unknown [id number] Unknown [id number] Social History Date Type Detail Facility Start: 10-11-2017 End: 07-10-2023 Tobacco smoking status NHIS Unknown if ever smoked [facility] Start: 1950 Sex Assigned At Female [facility] Start: 08-10-2024 End: 12-28-2024 Tobacco smoking status Never smoked tobacco (finding) [facility] Sexual Orientation [facility] Start: 05-15-2020 End: 12-05-2024 Sex Female (finding) [facility] Start: 1950 Sex assigned at Not on file [facility] Work Phone: Start: 07-07-2022 Sex Female [facility] Gender identity Not on file [facility] Work Phone: Functional Status Date Assessment Result Facility 04-07-2025 [place] - 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 08-10-2024 Mental Status [facility] 07-10-2023 Cognitive function Level Of Cons ciousness Awake;Alert;Appropriate;Follow s Commands [facility] Work Phone: Clinical Notes 04-24-2021 to 04-07-2025 Mane Munguia, DO - 04/07/2025 12:33 PM EDTSeliezer Munguia, DO - 04/07/2025 12:33 PM EDT Note Date & Type Note Facility 04-07-2025 Physician Emergency department Note Associated Order(s): Laceration Repair HPI No chief complaint on file. Patient presents to the emergency department secondary to a mechanical fall. Patient lost her footing on a gravel surface walking into a gas station to pay for gasoline. She struck her head on the glass door and then fell to the ground. Did not lose consciousness and reports no other injury. Last tetanus booster was 2 years ago. Her only complaint is soreness over her left forehead where she struck her head. 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 Constitutional: General: She is not in acute distress. Appearance: Normal appearance. She is normal weight. She is not ill-appearing, toxic-appearing or diaphoretic. HENT: Head: Normocephalic and atraumatic. Nose: Nose normal. No rhinorrhea. Neck: Comments: Trachea is midline Cardiovascular: Rate and Rhythm: Normal rate and regular rhythm. Pulses: Normal pulses. Heart sounds: No murmur heard. Pulmonary: Effort: Pulmonary effort is normal. Breath sounds: Normal breath sounds. No wheezing. Abdominal: General: Abdomen is flat. Bowel sounds are normal. There is no distension. Palpations: Abdomen is soft. Tenderness: There is no abdominal tenderness. Musculoskeletal: General: No swelling, tenderness, deformity or signs of injury. Normal range of motion. Cervical back: Normal range of motion. Skin: General: Skin is warm and dry. Findings: No rash. Comments: Patient is a 2 cm laceration just superior and lateral to the left eyebrow. This will require closure. No active bleeding. Neurological: General: No focal deficit present. Mental Status: She is alert and oriented to person, place, and time. Mental status is at baseline. Cranial Nerves: No cranial nerve deficit. Sensory: No sensory deficit. Psychiatric: Mood and Affect: Mood normal. Behavior: Behavior normal. Thought Content: Thought content normal. Judgment: Judgment normal. ED Course & MDM Diagnoses as of 04/07/25 1436 Head injury, initial encounter Facial laceration, initial encounter Contusion of left elbow, initial encounter No data recorded Medical Decision Making Patient's laceration was repaired by myself. This was tolerated well by the patient without any apparent complications. I did use adhesive tissue glue as the patient refused sutures even though I explained sutures would provide a better cosmetic result. Please see my procedure note for details Patient was ambulatory here without difficulty. Patient will be discharged. Tylenol for pain and follow-up with her private physician. Ice the effected areas and return if worse Procedure Laceration Repair Performed by: Mane Munguia DO Authorized by: Mane Munguia DO Consent: Consent obtained: Verbal Consent given by: Patient Risks, benefits, and alternatives were discussed: yes Risks discussed: Infection, need for additional repair, poor cosmetic result and poor wound healing Alternatives discussed: No treatment [place] protocol: Procedure explained and questions answered to patient or proxy's satisfaction: yes Relevant documents present and verified: yes Test results available: yes Imaging studies available: yes Required blood products, implants, devices, and special equipment available: yes Site/side marked: yes Immediately prior to procedure, a time out was called: yes Patient identity confirmed: Verbally with patient and arm band Anesthesia: Anesthesia method: None Laceration details: Location: Face Face location: L eyebrow Length (cm): 2 Depth (mm): 1 Exploration: Limited defect created (wound extended): no Hemostasis achieved with: Direct pressure Imaging outcome: foreign body not noted Wound exploration: entire depth of wound visualized Contaminated: no Treatment: Area cleansed with: Saline Amount of cleaning: Standard Debridement: None Undermining: None Scar revision: no Skin repair: Repair method: Tissue adhesive Approximation: Approximation: Close Repair type: Repair type: Simple Post-procedure details: Dressing: Open (no dressing) Procedure completion: Tolerated well, no immediate complications [1] No past medical history on file. [2] No past surgical history on file. [3] No family history on file. [4] Social History Tobacco Use Smoking status: Not on file Smokeless tobacco: Not on file Substance Use Topics Alcohol use: Not on file Drug use: Not on file Mane Munguia DO 04/07/25 1438 [facility] Work Phone: 04-07-2025 Emergency department Note Associated Order(s): Laceration Repair HPI No chief complaint on file. Patient presents to the emergency department secondary to a mechanical fall. Patient lost her footing on a gravel surface walking into a gas station to pay for gasoline. She struck her head on the glass door and then fell to the ground. Did not lose consciousness and reports no other injury. Last tetanus booster was 2 years ago. Her only complaint is soreness over her left forehead where she struck her head. 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 Constitutional: General: She is not in acute distress. Appearance: Normal appearance. She is normal weight. She is not ill-appearing, toxic-appearing or diaphoretic. HENT: Head: Normocephalic and atraumatic. Nose: Nose normal. No rhinorrhea. Neck: Comments: Trachea is midline Cardiovascular: Rate and Rhythm: Normal rate and regular rhythm. Pulses: Normal pulses. Heart sounds: No murmur heard. Pulmonary: Effort: Pulmonary effort is normal. Breath sounds: Normal breath sounds. No wheezing. Abdominal: General: Abdomen is flat. Bowel sounds are normal. There is no distension. Palpations: Abdomen is soft. Tenderness: There is no abdominal tenderness. Musculoskeletal: General: No swelling, tenderness, deformity or signs of injury. Normal range of motion. Cervical back: Normal range of motion. Skin: General: Skin is warm and dry. Findings: No rash. Comments: Patient is a 2 cm laceration just superior and lateral to the left eyebrow. This will require closure. No active bleeding. Neurological: General: No focal deficit present. Mental Status: She is alert and oriented to person, place, and time. Mental status is at baseline. Cranial Nerves: No cranial nerve deficit. Sensory: No sensory deficit. Psychiatric: Mood and Affect: Mood normal. Behavior: Behavior normal. Thought Content: Thought content normal. Judgment: Judgment normal. ED Course & MDM Diagnoses as of 04/07/25 1436 Head injury, initial encounter Facial laceration, initial encounter Contusion of left elbow, initial encounter No data recorded Medical Decision Making Patient's laceration was repaired by myself. This was tolerated well by the patient without any apparent complications. I did use adhesive tissue glue as the patient refused sutures even though I explained sutures would provide a better cosmetic result. Please see my procedure note for details Patient was ambulatory here without difficulty. Patient will be discharged. Tylenol for pain and follow-up with her private physician. Ice the effected areas and return if worse Procedure Laceration Repair Performed by: Mane Munguia DO Authorized by: Mane Munguia DO Consent: Consent obtained: Verbal Consent given by: Patient Risks, benefits, and alternatives were discussed: yes Risks discussed: Infection, need for additional repair, poor cosmetic result and poor wound healing Alternatives discussed: No treatment [place] protocol: Procedure explained and questions answered to patient or proxy's satisfaction: yes Relevant documents present and verified: yes Test results available: yes Imaging studies available: yes Required blood products, implants, devices, and special equipment available: yes Site/side marked: yes Immediately prior to procedure, a time out was called: yes Patient identity confirmed: Verbally with patient and arm band Anesthesia: Anesthesia method: None Laceration details: Location: Face Face location: L eyebrow Length (cm): 2 Depth (mm): 1 Exploration: Limited defect created (wound extended): no Hemostasis achieved with: Direct pressure Imaging outcome: foreign body not noted Wound exploration: entire depth of wound visualized Contaminated: no Treatment: Area cleansed with: Saline Amount of cleaning: Standard Debridement: None Undermining: None Scar revision: no Skin repair: Repair method: Tissue adhesive Approximation: Approximation: Close Repair type: Repair type: Simple Post-procedure details: Dressing: Open (no dressing) Procedure completion: Tolerated well, no immediate complications [1] No past medical history on file. [2] No past surgical history on file. [3] No family history on file. [4] Social History Tobacco Use Smoking status: Not on file Smokeless tobacco: Not on file Substance Use Topics Alcohol use: Not on file Drug use: Not on file Mane Munguia DO 04/07/25 1438 documented in this encounter [facility] Work Phone: 02-19-2025 Discharge summary [facility] 02-19-2025 Discharge summary Note Date/Time February 19, 2025 10:48am [facility] Physical Therapy [facility] [address] [place] [address] / REHABILITATION SERVICES DISCHARGE SUMMARY MR#: [id number] Acct: [id number] Name: ALCIDES NICKERSON Rep #: [id number] : 1950 74 From: Nani Giron Referring Dr.: Dr. Braulio Huang MD Status: REG RCR Insurance: MEDICARE PART A B AETNA SR SUPPLEMENT INS Discharge Summary D/C summary: It has been my pleasure to treat ALCIDES NICKERSON referred by Dr. Braulio Huang MD, with the diagnosis of DDD for a total of 9 visit(s). Discharge Date: Please see the following information for a summary of their discharge status. Subjective Subjective: Patient reports that she is back to 100%- doing all of her normal activities and ready for d/c Overall Improvement % Improvement: 100 Objective Objective/Function: Posture: good throughout HR/TR: WNL Balance: 15 seconds ROM: Lumbar: WNL no pain Sensation: WNL to gross touch bilateral LE Strength: Core: fair minus, Hip: Right: 4/5 throughout, Left: 4+/5, Knee: Right:4/5 Left: 4+/5, Ankle: 4+/5 bilateral Flex: HS: Right: severe, Left: moderate, Gastroc: moderate bilateral Dural s/s: no s/s Goals Goal 1:: Patient will be I with HEP and progression Goal Progress: Goal Met Goal 2:: Patient will report no dural s/s for 1 week Goal Progress: Goal Met Goal 3:: Patient will maintain proper posture t/o tx session to demo increased core s/s Goal Progress: Goal Met Goal 4:: Patient will report 80% improvement Goal Progress: Goal Met Plan Plan: Discharge to I HEP D/C Information d/c sentence: If there are questions or concerns regarding this patient's physical therapy, please feel free to call me at [phone]. Thank you for the referral of thispatient. Sincerely, Nani Yao, DPT Balance/Gait/Functional tests Balance/Special Test Scores Oswestry Low Back Score: 0 Improvement % Improvement: 100 <Electronically signed by Nani Yao DPT> 02/19/25 0844 CC: Dr. Braulio Huang MD ~ ELR Signed [facility] Work Phone: 1(117) 616-980706-03-2025 Radiology Diagnostic study note [facility] Imaging Services [address] [place], [place] [address] L/S Spine w Bend Min 6 Vw MR#: [id number] Acct: [id number] Name: ALCIDES NICKERSON Rep #: [id number] : 1950 F 74 From: Seun Moser MD PCP: Dr. Braulio Huang MD Status: REG C REMA Study:L/S Spine w Bend Min 6 Vw Date of Exam: 01/13/25 Exam# [id number] Ordering Dr: Braulio Huang MD PROCEDURE: L/S SPINE W BEND MIN 6 VW 01/13/2025 REASON FOR EXAM: BACK PAIN TECHNIQUE: Standing 7 view lumbar spine series including flexion and extension lateral images were obtained. COMPARISON: Lumbar spine 10/03/2022 FINDINGS: There are no compression fractures. There is mild dextroscoliosis of the thoracolumbar spine. Thereis mild degenerative disc disease, L3-4 through L5-S1 with narrowing of the disc spaces and small marginalosteophytes. There is no significant facet arthropathy. There is no spondylolisthesis. There is no instability with flexion and extension. TheSI joints are normal. The paravertebral soft tissues are normal. RAD/L/S Spine w Bend Min 6 Vw IMPRESSION: 1. Mild multilevel degenerative disc disease with mild dextroscoliosis. 2. No evidence of instability with flexion and extension. Reading Location: [id number] CC: Dr. Braulio Huang MD ~ Account Retention Representative: Signed [facility] Work Phone: 1(724) 163-492305-18-2025 Discharge summary [facility] Medical Records Department [address] [place] [address] Emergency Department Summary 12/28/24 MR#: [id number] Acct: [id number] Name: ALCIDES NICKERSON Rep #:[id number] : 1950 74 From: Venancio Fish DO PCP: Dr. Braulio Huang MD Status:REG E R Location: ED HPI History of Present Illness Chief Complaint: Flank Pain Narrative Narrative: Patient is a 74-year-old female past medical history hypertension, kidney stoneswho presents to theemergency department chief complaint of right flank pain. Patient states that on Sunday she developed right flank pain and states that shehad been extremely nauseous over the last several days. Patient notes that thisfeels like her previous kidney stone. Patient states that she can handle pain but cannot handle the nausea anymore therefore she came here for evaluation management. States that anytime she tried to put anything to eat in her mouth she immediately was dry heaving. Patient states that this morning she was able to keep down cereal. PFSH [facility] Medical History Kidney stones Hypertension Ejection fraction < 50% manipulation under anesthesia Osteoarthritis of left knee Home Medications ?Medication ?Instructions ?Recorded ?Last Taken ?Type prednisolone acetate 1 % eye 1 drp ophthalmic (eye) TI D 07/10/23 12/28/24 History drops,suspension cephalexin 500 mg capsule 500 mg PO Q12H 5 days #10 ca ps 12/28/24 Unknown Rx ondansetron 4 mg disintegrating 4 mg PO Q6H #30 tabs 0 12/28/24 Unknown Rx tablet Allergy/AdvReac Type Severity Reaction Status Date / Time morphine AdvReac Vomiting Verified 12/28/24 10:15 Family History Mother Hypertension Surgical History retina detachment of right eye History of total left knee replacement H/O hysterectomy for benign disease S/P appendectomy Hx of cholecystectomy History of tonsillectomy History of total right knee replacement Social History (Updated 12/28/24 @ 10:50 by Abi Velazquez) housing: house current occupational status: retired pets and animals: Yes Smoking Status: Never smoker ROS ROS ED ROS Narrative Constitutional: Denies fevers, chills, headaches Cardiovascular: Denies chest pain Respiratory: Denies shortness of breath Abdomen: Complains of nausea and vomiting as noted above denies abdominal pain diarrhea : Denies any painful urination, hematuria, polyuria Neurological: Denies any numbness, weakness, tingling Musculoskeletal: Complains of right flank pain as noted above Skin: Denies rashes or lesions EXAM Physical Exam Const Vital Signs: 12/28/24 10:15 12/28/24 12:16 Temperature 98.6 F Temperature Source Oral Pulse Rate 79 72 Respiratory Rate 16 17 Blood Pressure 160/81 H 153/59 H Blood Pressure Mean 107 90 Pulse Ox 98 95 Oxygen Delivery Method Room Air MDM MDM MDM Narrative Medical decision making narrative: Patient is a 74-year-old female who presented to the emergency department with chief complaint of right flank pain. On the differential diagnosis includes butnot limited to urolithiasis, nephrolithiasis, UTI, pyelonephritis, AAA. Once workup is obtained reviewed she will be reevaluated. Patient be given Zofran and IV fluids. Patient CBC reviewed showed no evidence leukocytosis white blood count normal 8.7, hemoglobin is 15.1, platelet count was noted be 219. Patient sodium was 141, potassium normal 3.9, creatinine normalat 0.97. Patient's AST and ALT were normal at 23 and 16 respectively. Patient lipase normal at 35. Patient's urinalysis showed positive nitrates 5, leukocyte esterase greater than and whitecells with3+ bacteria she was given a gram Rocephin urine was sent for culture. Patient CT ab pelvis IV contrast was reviewed showed hepatomegaly with fatty infiltration, umbilical hernia containing fat. No obstructive uropathy noted. Reevaluation the patient she is feeling much better she would like to go home atthis point time. Patient be given a prescription for Keflex she was vies follow-up on the urine culture. She was given prescription for Zofran and was vies return with worsening symptoms or concerns. She is agreeable toplan all question concerns answered she is discharged home in stable condition. Lab Data Labs: Laboratory Results - last 24 hr 12/28/24 12/28/24 10:45 11:05 WBC 8.7 RBC 5.05 Hgb 15.1 H Hct 44.8 MCV 88.7 MCH 29.9 MCHC 33.7 RDW Std Deviation 39.8 RDW Coeff of Darnell 12.2 Plt Count 219 MPV 9.9 Immature Gran % (Auto) 0.200 Neut % (Auto) 69.6 Lymph % (Auto) 20.9 Cla[place]orne % (Auto) 7.6 Eos % (Auto) 1.2 Baso % (Auto) 0.5 Absolute Neuts (auto) 6.0 Absolute Lymphs (auto) 1.81 Nucleated RBC % 0 Sodium 141 Potassium 3.9 Chloride 104 Carbon Dioxide 24.1 Anion Gap 12 BUN 23 H Creatinine 0.97 Estim Creat Clear Calc 40.24 L Est GFR (MDRD) Non-Af 61 BUN/Creatinine Ratio 23.5 H Glucose 115 H Calcium 9.6 Total Bilirubin 0.63 AST 23 ALT 16 Alkaline Phosphatase 110 H Total Protein 7.4 Albumin 4.3 Globulin 3.1 Albumin/Globulin Ratio 1.4 Lipase 35 Urine Color Yellow Urine Clarity Cloudy Urine pH 6.0 Ur Specific [place] 1.020 Urine Protein 30 H Urine Glucose (UA) Normal Urine Ketones Negative Urine Occult Blood 50 H Urine Nitrite Positive H Urine Bilirubin Negative Urine Urobilinogen Normal Ur Leukocyte Esterase 500 H Urine RBC 0-5 SEEN Urine WBC >100 SEEN Ur Squamous Epith Cells 5-10 SEEN Urine Bacteria 3+ Hyaline Casts 5-10 SEEN Urine Mucus 0 SEEN Radiography Diagnostic Testing: Clinical Impression(s) from Imaging Studies Abdomen/Pelvis CT 12/28/24 10:35 IMPRESSION: 1. Hepatomegaly with fatty infiltration. 2. Umbilical hernia containing fat. 3. No obstructive uropathy. Reading Location: [facility] Discharge Plan Triage Chief Complaint: Flank Pain ED Provider: Venancio Fish Dx/Rx/DC Orders Clinical Impression: Urinary tract infection, Nausea & vomiting Prescriptions: New ondansetron 4 mg tablet,disintegrating 4 mg PO Q6H Qty: 30 0RF cephalexin 500 mg capsule 500 mg PO Q12H 5 Days Qty: 10 0RF No Action prednisolone acetate 1 % drops,suspension 1 drp ophthalmic (eye) TID Patient Comments: INSTILL 1 DROP INTO LEFT EYE 3 TIMES A DAY Primary Care Provider: Braulio Huang Referrals: Braulio Huang MD [Primary Care Provider] - Activity Restrictions/Additional Instructions: Take prescriptions as prescribed. Follow-up on urine culture with your primary care physician. Return with worsening symptoms or concerns. Your CT scan did not show any evidence of kidney stone and your urine did look like you have a urinary tract infection. The rest your blood work did not show any acute findings today. Print Language: [place] Disposition Disposition: Home, Self Care What to do if you have Problems For any increased pain, shortness of breath, bleeding, nausea or vomiting, chestpain, or any unexpected problems, contact your Primary Care Provider. Call [facility] ([phone]) or report tothe closest Emergency Room. Call 911 if necessary. 12/28/24 1225 Cosigner Signature (if applicable): CC: Dr. Braulio Huang MD ~ Signed [facility]05-18-2025 Radiology Diagnostic study note [facility] Imaging Services [address], [place] [address] Abdomen/Pelvis W IV Cont ONLY MR#: [id number] Acct: [id number] Name: ALCIDES NICKERSON Rep #: [id number] : 1950 F 74 From: Janet Allen MD PCP: Dr. Braulio Huang MD Status: REG E R Study:Abdomen/Pelvis W IV Cont ONLY Date of E xam: 12/28/24 Exam# [id number] Ordering Dr: Bree Fish DO EXAM: CT Abdomen and Pelvis With Intravenous Contrast CLINICAL INDICATION: R FLANK PAIN TECHNIQUE: Axial computed tomography images of the abdomen and pelvis with intravenous contrast. This CT exam was performed using one or more of the following dose reduction techniques: automated exposure control, adjustment of the mA and/or kV according to patient size, and/or use of iterative reconstruction technique. COMPARISON: CT Abdomen Pelvis dated 09/20/2022 FINDINGS: LUNG BASES: Unremarkable. No mass. No consolidation. ABDOMEN: LIVER: Hepatomegaly with fatty infiltration. GALLBLADDER AND BILE DUCTS: Unremarkable. No calcified stones. No ductal dilation. PANCREAS: Unremarkable. No mass. No ductal dilation. SPLEEN: Unremarkable. No splenomegaly. ADRENALS: Unremarkable. No mass. KIDNEYS AND URETERS: Small bilateral renal cysts. No stones within either kidney. No hydronephrosis. STOMACH AND BOWEL: Unremarkable. No obstruction. No mucosal thickening. PELVIS: APPENDIX: No findings to suggest acute appendicitis. BLADDER: Unremarkable. No mass. REPRODUCTIVE: Unremarkable as visualized. ABDOMEN and PELVIS: INTRAPERITONEAL SPACE: Unremarkable. No free air. No significant fluid collection. BONES/JOINTS: No acute fracture. No dislocation. SOFT TISSUES: Umbilical hernia containing fat. VASCULATURE: Unremarkable. No abdominal aortic aneurysm. LYMPH NODES: Unremarkable. No enlarged lymph nodes. CT/Abdomen/Pelvis W IV Cont ONLY IMPRESSION: 1. Hepatomegaly with fatty infiltration. 2. Umbilical hernia containing fat. 3. No obstructive uropathy. Reading Location: [facility] CC: Dr. Braulio Huang MD; Dr. Venancio Fish DO ~ Account Retention Representative: Signed [facility]12-29-2024 Hospital Discharge instructions Patient Education 08/10/2024 16:29:13 Dysuria Dysuria Painful urination (dysuria) is often caused by a problem in the urinary tract. Dysuria is pain felt during urination. It is often described as a burning. Learn more about this problem and how it can be treated. What causes dysuria? Possible causes include: Infection with a bacteria or virus such as a urinary tract infection (UTI or a sexually transmittedinfection (STI) Sensitivity or allergy to chemicals such as those found in lotions and other products Prostate or bladder problems Radiation therapy to the pelvic area How is dysuria diagnosed? Your healthcare provider will examine you. He or she will ask about your symptoms and health. Aftertalking with you and doing a physical exam, your healthcare provider may know what is causing your dysuria. He or she will usually request a sample of your urine. Tests of your urine, or a urinalysis, are done. A urinalysis may include: Looking at the urine sample (visual exam) Checking for substances (chemical exam) Looking at a small amount under a microscope (microscopic exam) Some parts of the urinalysis may be done in the provider's office and some in a lab. And, the urinesample may be checked for bacteria and yeast (urine culture). Your healthcare provider will tell you more about these tests if they are needed. How is dysuria treated? Treatment depends on the cause. If you have a bacterial infection, you may need antibiotics. You may be given medicines to make it easier for you to urinate and help relieve pain. Your healthcare provider can tell you more about your treatment options. Untreated, symptoms may get worse. When to call your healthcare provider Call the healthcare provider right away if you have any of the following: Fever of 100.4 F (38 C) or higher No improvement after three days of treatment Trouble urinating because of pain New or increased discharge from the vagina or penis Rash or joint pain Increased back or abdominal pain Enlarged painful lymph nodes (lumps) in the groinTh 6188-52[address] [employer]. [address] [place] [address]. All rights reserved. This information is not intended as a substitute for professional medical care. Always follow yourhealthcare professional's instructions. Follow Up Care 08/10/2024 14:00:33 With:Call Physician Referral Address:Unknown When:2-4 days [facility] 12-29-2024 Note Discharge Instructions Thank you for allowing [facility] to assist you with your healthcare needs. The following is importantdischarge information regarding your hospital visit. Diagnosis from Today's Visit Dysuria Weakness What to Do Next Instructions from Your Care Team No qualifying data available. Post Acute Orders No qualifying data available. You Need to Schedule the Following Appointments Follow Up with Call Physician Referral When:Within 2-4 days Allergies morphine Medications Please ask your primary doctor or pharmacist before taking any other medication not listed, including over the counter drugs, herbal medications, vitamins and or supplements as they may interact withyour home medications. What How Much When Instructions Last Dose New cephalexin (cephalexin 500 mg oral capsule) 1 cap by mouth Every 12 hours Duration: 7 Days Printed Prescription Unchanged ondansetron (ondansetron 4 mg oral tablet, disintegrating) 1 tab(s) by mouth Every 6 hours as needed for Nausea/Vomiting Unchanged tamsulosin (tamsulosin 0.4 mg oral capsule) 1 cap by mouth Two (2) times a day Duration: 7 Days Please take this list to your next doctor s visit. Bring all medications you take, including over the counter medications, herbals and other supplements with you to your doctor s visit. Patients and families are reminded to discard old lists and to update any records with all medication providers or retail pharmacies. Education Materials Dysuria Painful urination (dysuria) is often caused by a problem in the urinary tract. Dysuria is pain felt during urination. It is often described as a burning. Learn more about this problem and how it can be treated. What causes dysuria? Possible causes include: Infection with a bacteria or virus such as a urinary tract infection (UTI or a sexually transmittedinfection (STI) Sensitivity or allergy to chemicals such as those found in lotions and other products Prostate or bladder problems Radiation therapy to the pelvic area How is dysuria diagnosed? Your healthcare provider will examine you. He or she will ask about your symptoms and health. Aftertalking with you and doing a physical exam, your healthcare provider may know what is causing your dysuria. He or she will usually request a sample of your urine. Tests of your urine, or a urinalysis, are done. A urinalysis may include: Looking at the urine sample (visual exam) Checking for substances (chemical exam) Looking at a small amount under a microscope (microscopic exam) Some parts of the urinalysis may be done in the provider's office and some in a lab. And, the urinesample may be checked for bacteria and yeast (urine culture). Your healthcare provider will tell you more about these tests if they are needed. How is dysuria treated? Treatment depends on the cause. If you have a bacterial infection, you may need antibiotics. You may be given medicines to make it easier for you to urinate and help relieve pain. Your healthcare provider can tell you more about your treatment options. Untreated, symptoms may get worse. When to call your healthcare provider Call the healthcare provider right away if you have any of the following: Fever of 100.4 F (38 C) or higher No improvement after three days of treatment Trouble urinating because of pain New or increased discharge from the vagina or penis Rash or joint pain Increased back or abdominal pain Enlarged painful lymph nodes (lumps) in the groinTh 3390-[address] [employer]. [address] [place] [address]. All rights reserved. This information is not intended as a substitute for professional medical care. Always follow yourhealthcare professional's instructions. Additional Information VACCINATE! IT SAVES LIVES! Members of the community who have not yet received the COVID-19 vaccine and would like to receive it can visit one of [facility] vaccine clinics. There are many vaccine clinic locations within the [facility]. For locations and available times, please visit www.gettheshot.coronavirus.[place].gov/. It is important to note that some COVID mobile vaccine clinics are held outdoors and may be canceled in rainy or stormy conditions. To learn more about pediatric vaccinations (ages 5-11), we invite you to visit the [facility] webpage. [email or web address].[email or web address].org/pages/[email or web address]-Bwhax-Ejglstwoqwm-Pybteqwmav-Zarnk-[email or web address] stions.htmlTo learn more about the COVID-19 vaccine, we invite you to visit the CDC website for a list of frequently asked questions. https://www.cdc.gov/coronavirus/2019-ncov/vaccines/faq.html [facility] Patient Portal Access Instructions: Stay connected with your healthcare team and access your personal medical information anytime with the [facility] Patient Portal. If you would like a full copy of your medical records please contact the [facility] Medical Records Department Sunday through Sunday between 8a.m. and 4:30p.m. Please follow the directions below to access the portal: 1.Access the email account you provided upon registration to the [facility].2.Look for an invitation email from [facility].3.Open the email and access the invitation link: Accept Invitation to [facility].Fill in the required corona to create your account. Sign into [email or web address] with your username and password that you created in the above steps to stay up to date. You can then view a summary of results, a summary of your visits, and the ability to download your summaries to your computer or send the information securely to a physician. Remember that your healthcare information is confidential, so carefully consider who you will allow to register on the [employer] Patient Portal for access to your information. You can also access the [employer] [facility] Patient Portal on the [employer]. Simply click on Health Records under [employer] and then click on the [employer] logo. HOW TO SAFELY DISPOSE OF PRESCRIPTION MEDICATIONS Please use one of the following methods to safely dispose of your unused medications. 1.Use a drug disposal kit: the drug disposal pouch allows you to safely discard your old and unuseddrugs. Ask your nurse to give you one when you are discharged.2.Visit a local take-back location: Many local pharmacies and police departments have programs that collect old and unwanted prescriptiondrugs. Call your local pharmacy or go to http://SouthWing.Snipd/4G1Yh1v to find one close to you.3.Make use of household items: Use cat litter or old coffee grounds to dispose medications if other options arenot available. Mix your drugs with these household products, seal them in an airtight container andthrow it into the garbage. Call [facility]: [phone] to be sure your drugs can be disposed of in this way. Some medicines may require a different approach.4.Never flush your medications down the toilet. IF YOU HAVE BEEN PRESCRIBED AN OPIOIDS FOR PAIN If you have been prescribed an opioid (such as hydrocodone, oxycodone or morphine), it is critical to understand the possible side effects and risks of opioid pain medications. Even when taken as directed, opioids can have several side effects including: Tolerance, meaning you might need to take more of a medication for the same pain relief. Nausea, vomiting and/or constipation. Sleepiness, dizziness, dry mouth, confusion, depression or itching. Physical dependence, meaning you have withdrawal symptoms when a medication is stopped ? this can develop within a few days. KNOW YOUR RESPONSIBILITIES It is important to know exactly how much and how often to take the opioid pain medications you are prescribed. Never take opioids in higher amounts or more often than prescribed. Do not combine opioids with alcohol or other drugs that cause drowsiness, such as benzodiazepines, also known as benzos,including diazepam and alprazolam, muscle relaxants or sleep aids. Never sell or share prescriptionopioids. This is illegal. Store opioids in a secure place and out of reach of others (including children, family, friends and visitors). The last page(s) of this document has been signed and retained as a CHART COPY Signatures Patient Education Materials Dysuria Medication Leaflets My discharge plan and instructions have been reviewed and explained to me and I,FILOMENA ALCIDES understand my current condition and have read and understand these discharge instructions. I have received a written copy of the plan/instructions. If I have questions, I am aware that I should contact my doctor. 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 Signature: Date/Time: Relationship to Patient: Witness Name/Signature: Date/Time: [facility]12-29-2024 Note* Exam Date Time Procedure Performing Provider Status 08/10/24 2:50 PM EKG [ED AOH] - CV INDRA LUIS O; Auth (Verified) ECG Final Report Sinus rhythm Abnormal R-wave progression, early transition BORDERLINE ECG Electronic Signature: INDRA LUIS DO 08/10/2024 15:01:59 [facility]12-29-2024 Note* Exam Date Time Procedure Performing Provider Status 08/10/24 2:32 PM XR Chest 1 View MERLIN LÓPEZ MD; Auth (Verified) [id number] ORIGINAL EXAMINATION: ONE XRAY VIEW OF THE CHEST 08/10/2024 2:32 pm COMPARISON: None. HISTORY: ORDERING SYSTEM PROVIDED HISTORY: Reason for Exam: weakness FINDINGS: The cardiomediastinal silhouette demonstrates a normal appearance. No consolidative opacity is identified. There is no pleural effusion or pneumothorax. No free air seen beneath the level of the diaphragm. The bony thorax appears acutely intact. IMPRESSION: No evidence of an acute process. Interpreted by: Merlin López MD Preliminary Report By: Merlin López MD Electronically signed By Merlin López MD Dictated Date: 08/10/2024 2:54:04 PM Prelim Date: 08/10/2024 2:54:50 PM Sign Date: 08/10/2024 2:54:50 PM Ordering Provider: INDRA [facility]03-09-2023 Discharge summary Author Emil Henry [facility] October 19, 2022 3:52pm Note Date/Time October 19, 2022 3:52 pm [facility] Physical Therapy [facility] [address] [place] [address] / REHABILITATION SERVICES DISCHARGE SUMMARY MR#: [id number] Acct: [id number] Name: ALCIDES NICKERSON Rep #: [id number] : 1950 71 From: Emil Henry DPT, OCS, CSCS Referring Dr.: Dr. Cindy Larsen MD Status: REG RCR Insurance: MEDICARE PART A B [employer] SR SUPPLEMENT INS ALCIDES NICKERSON was seen in my office for initial evaluation on 10/05/22. The following Plan of Care was established for this patient: Initial Frequency: 2x /Week Initial Duration: 4-6 Weeks Patient/Client Instruction: Educate patient on: Condition, Plan of Care For the Purpose of:: To decrease pain, To increase ROM, To improve nutrient delivery to tissue, To improve muscle performance and motor function, To increase tolerance to activity/condition/position Therapeutic Exercise to Include: Strength training, Flexibilty training, PassiveROM, Active ROM, Dynamic Lumbar Stabilization For the Purpose of:: To decrease pain, To increase ROM, To improve nutrient delivery to tissue, To improve muscle performance and motor function, To increase tolerance to activity/condition/position Manual Therapy Techniques to Include: Mobilization, Soft tissue mobilization For the Purpose of:: To decrease pain, To increase ROM, To improve nutrient delivery to tissue This patient was last seen in our office 10/11/22. Pertinent comments regardingtheir Physical therapy will appear below: Pt seen 2 visits of POC and was feeling best she had in months, stretches reallyhelped. She has called to cancel the rest of her visits as she is feeling better. At this point I will be discontinuing this patient from physical therapy. I would be happy to see this patient again in the future if found appropriate by the physician. Thank you! Emil Henry, DPT, OCS, CSCS Balance/Gait/Functional tests - Balance/Special Test Scores Oswestry Low Back Score: 12 <Electronically signed by Emil Henry DPT, OCS, CSCS> 10/19/22 8825 CC: Dr. Cnidy Larsen MD; Dr. Braulio Huang MD ~ EBG Signed [facility] Work Phone: 1(250) 459-159509-12-2021 NoteHNO ID: [id number] Author: Althea Bryant PA-C Service: ? Author Type: Physician Instructor Business Education Type: Progress Notes Filed: 04/24/2021 12:10 PM Note Text: Subjective 70 y/o female Pt c/o sneezing and sinus congestion since last night. No headache, fever, chills, cough, myalgias, fatigue, loss of taste/smell. Has h/o seasonal allergies but hasn't been taking anything at home. Pt has not used anything for the symptoms . The history is provided by the patient. Review of Systems Constitutional: Negative for chills, fever and malaise/fatigue. HENT: Positive for congestion. Negative for ear pain, sinus pain and sore throat. Eyes: Negative for discharge. Respiratory: Negative for cough, sputum production, shortness of breath and wheezing. Cardiovascular: Negative for chest pain. Gastrointestinal: Negative for abdominal pain, nausea and vomiting. Musculoskeletal: Negative for myalgias and neck pain. Skin: Negative for rash. Neurological: Negative for headaches. Psychiatric/Behavioral: The patient is not nervous/anxious. Objective BP 140/80 Pulse 92 Temp 36.6 ?C (97.9 ?F) Resp 18 Wt 65.3 kg (144 lb) SpO2 97% Physical Exam Vitals and nursing note reviewed. Constitutional: General: She is not in acute distress. Appearance: Normal appearance. She is not ill-appearing. HENT: Head: Normocephalic and atraumatic. Right Ear: Tympanic membrane, ear canal and external ear normal. Left Ear: Tympanic membrane, ear canal and external ear normal. Nose: Nose normal. Mouth/Throat: Mouth: Mucous membranes are moist. Pharynx: Oropharynx is clear. No oropharyngeal exudate. Cardiovascular: Rate and Rhythm: Normal rate and regular rhythm. Heart sounds: Normal heart sounds. No murmur heard. No gallop. Pulmonary: Effort: Pulmonary effort is normal. No respiratory distress. Breath sounds: Normal breath sounds. No wheezing. Musculoskeletal: General: Normal range of motion. Cervical back: Normal range of motion and neck supple. Lymphadenopathy: Cervical: No cervical adenopathy. Skin: General: Skin is warm and dry. Neurological: Mental Status: She is alert and oriented to person, place, and time. Psychiatric: Mood and Affect: Mood and affect normal. Behavior: Behavior normal. Thought Content: Thought content normal. Judgment: Judgment normal. ASSESSMENT/PLAN: 1. Sinus congestion - ICD9: 478.19, ICD10: R09.81 (primary diagnosis) 2. Seasonal allergies - ICD9: 477.9, ICD10: J30.2 - Start using Flonase for the next 2-3 weeks - Use Claritin D as needed for congestion - Use Saline nasal spray as needed for congestion - Supportive care with plenty of fluids, rest, and tylenol and motrin as needed for pain and/or fever - Follow up with your Primary physician in 2 weeks if symptoms persist or worsen. [facility] summary Author Venancio Fish [facility] Note Date/Time December 28, 2024 12:25 pm [facility] Medical Records Department [address] [place] [address] Emergency Department Summary 12/28/24 MR#: [id number] Acct: [id number] Name: ALCIDES NICKERSON Rep #:[id number] : 1950 74 From: Venancio Fish DO PCP: Dr. Braulio Huang MD Status:REG E R Location: ED HPI History of Present Illness Chief Complaint: Flank Pain Narrative Narrative: Patient is a 74-year-old female past medical history hypertension, kidney stoneswho presents to the emergency department chief complaint of right flank pain. Patient states that on Sunday she developed right flank pain and states that shehad been extremely nauseous over the last several days. Patient notes that thisfeels like her previous kidney stone. Patient states that she can handle pain but cannot handle the nausea anymore therefore she came here for evaluation management. States that anytime she tried to put anything to eat in her mouth she immediately was dry heaving. Patient states that this morning she was able to keep down cereal. [facility] Medical History Kidney stones Hypertension Ejection fraction < 50% manipulation under anesthesia Osteoarthritis of left knee Home Medications ?Medication ?Instructions ?Recorded ?Last Taken ?Type prednisolone acetate 1 % eye 1 drp ophthalmic (eye) TI D 07/10/23 12/28/24 History drops,suspension cephalexin 500 mg capsule 500 mg PO Q12H 5 days #10 ca ps 12/28/24 Unknown Rx ondansetron 4 mg disintegrating 4 mg PO Q6H #30 tabs 0 12/28/24 Unknown Rx tablet Allergy/AdvReac Type Severity Reaction Status Date / Time morphine AdvReac Vomiting Verified 12/28/24 10:15 Family History Mother Hypertension Surgical History retina detachment of right eye History of total left knee replacement H/O hysterectomy for benign disease S/P appendectomy Hx of cholecystectomy History of tonsillectomy History of total right knee replacement Social History (Updated 12/28/24 @ 10:50 by Abi Velazquez) housing: house current occupational status: retired pets and animals: Yes Smoking Status: Never smoker ROS ROS ED ROS Narrative Constitutional: Denies fevers, chills, headaches Cardiovascular: Denies chest pain Respiratory: Denies shortness of breath Abdomen: Complains of nausea and vomiting as noted above denies abdominal pain diarrhea : Denies any painful urination, hematuria, polyuria Neurological: Denies any numbness, weakness, tingling Musculoskeletal: Complains of right flank pain as noted above Skin: Denies rashes or lesions EXAM Physical Exam Const Vital Signs: 12/28/24 10:15 12/28/24 12:16 Temperature 98.6 F Temperature Source Oral Pulse Rate 79 72 Respiratory Rate 16 17 Blood Pressure 160/81 H 153/59 H Blood Pressure Mean 107 90 Pulse Ox 98 95 Oxygen Delivery Method Room Air MDM MDM MDM Narrative Medical decision making narrative: Patient is a 74-year-old female who presented to the emergency department with chief complaint of right flank pain. On the differential diagnosis includes butnot limited to urolithiasis, nephrolithiasis, UTI, pyelonephritis, AAA. Once workup is obtained reviewed she will be reevaluated. Patient be given Zofran and IV fluids. Patient CBC reviewed showed no evidence leukocytosis white blood count normal 8.7, hemoglobin is 15.1, platelet count was noted be 219. Patient sodium was 141, potassium normal 3.9, creatinine normal at 0.97. Patient's AST and ALT were normal at 23 and 16 respectively. Patient lipase normal at 35. Patient's urinalysis showed positive nitrates 5, leukocyte esterase greater than and whitecells with 3+ bacteria she was given a gram Rocephin urine was sent for culture. Patient CT ab pelvis IV contrast was reviewed showed hepatomegaly with fatty infiltration, umbilical hernia containing fat. No obstructive uropathy noted. Reevaluation the patient she is feeling much better she would like to go home atthis point time. Patient be given a prescription for Keflex she was vies follow-up on the urine culture. She was given prescription for Zofran and was vies return with worsening symptoms or concerns. She is agreeable to plan all question concerns answered she is discharged home in stable condition. Lab Data Labs: Laboratory Results - last 24 hr 12/28/24 12/28/24 10:45 11:05 WBC 8.7 RBC 5.05 Hgb 15.1 H Hct 44.8 MCV 88.7 MCH 29.9 MCHC 33.7 RDW Std Deviation 39.8 RDW Coeff of Darnell 12.2 Plt Count 219 MPV 9.9 Immature Gran % (Auto) 0.200 Neut % (Auto) 69.6 Lymph % (Auto) 20.9 Cla[place]orne % (Auto) 7.6 Eos % (Auto) 1.2 Baso % (Auto) 0.5 Absolute Neuts (auto) 6.0 Absolute Lymphs (auto) 1.81 Nucleated RBC % 0 Sodium 141 Potassium 3.9 Chloride 104 Carbon Dioxide 24.1 Anion Gap 12 BUN 23 H Creatinine 0.97 Estim Creat Clear Calc 40.24 L Est GFR (MDRD) Non-Af 61 BUN/Creatinine Ratio 23.5 H Glucose 115 H Calcium 9.6 Total Bilirubin 0.63 AST 23 ALT 16 Alkaline Phosphatase 110 H Total Protein 7.4 Albumin 4.3 Globulin 3.1 Albumin/Globulin Ratio 1.4 Lipase 35 Urine Color Yellow Urine Clarity Cloudy Urine pH 6.0 Ur Specific [place] 1.020 Urine Protein 30 H Urine Glucose (UA) Normal Urine Ketones Negative Urine Occult Blood 50 H Urine Nitrite Positive H Urine Bilirubin Negative Urine Urobilinogen Normal Ur Leukocyte Esterase 500 H Urine RBC 0-5 SEEN Urine WBC >100 SEEN Ur Squamous Epith Cells 5-10 SEEN Urine Bacteria 3+ Hyaline Casts 5-10 SEEN Urine Mucus 0 SEEN Radiography Diagnostic Testing: Clinical Impression(s) from Imaging Studies Abdomen/Pelvis CT 12/28/24 10:35 IMPRESSION: 1. Hepatomegaly with fatty infiltration. 2. Umbilical hernia containing fat. 3. No obstructive uropathy. Reading Location: [facility] Discharge Plan Triage Chief Complaint: Flank Pain ED Provider: Venancio Fish Dx/Rx/DC Orders Clinical Impression: Urinary tract infection, Nausea & vomiting Prescriptions: New ondansetron 4 mg tablet,disintegrating 4 mg PO Q6H Qty: 30 0RF cephalexin 500 mg capsule 500 mg PO Q12H 5 Days Qty: 10 0RF No Action prednisolone acetate 1 % drops,suspension 1 drp ophthalmic (eye) TID Patient Comments: INSTILL 1 DROP INTO LEFT EYE 3 TIMES A DAY Primary Care Provider: Braulio Huang Referrals: Braulio Huang MD [Primary Care Provider] - Activity Restrictions/Additional Instructions: Take prescriptions as prescribed. Follow-up on urine culture with your primary care physician. Return with worsening symptoms or concerns. Your CT scan did not show any evidence of kidney stone and your urine did look like you have a urinary tract infection. The rest your blood work did not show any acute findings today. Print Language: [place] Disposition Disposition: Home, Self Care What to do if you have Problems For any increased pain, shortness of breath, bleeding, nausea or vomiting, chestpain, or any unexpected problems, contact your Primary Care Provider. Call [facility] ([phone]) or report to the closest Emergency Room. Call 911 if necessary. 12/28/24 1225 <Electronically signed by Venancio Fish DO> Cosigner Signature (if applicable): CC: Dr. Braulio Huang MD ~ Signed [facility] Work Phone: Evaluation + Plan note No data available for this section [facility] Evaluation noteNo assessment information available [facility] Work Phone: Evaluation note* Diagnosis Head injury, initial encounter- Primary Facial laceration, initial encounter Contusion of left elbow, initial encounter documented in this encounter [facility] Work Phone: Hospital Discharge instructions Additional Instructions Stay hydrated and take the antibiotics as instructed. If symptoms worsen such as fever, worsening weakness, [facility] Work Phone: Hospital Discharge instructions Additional Instructions Take prescriptions as prescribed. Follow-up on urine culture with your primary care physician. Return with worsening symptoms or concerns. Your CT scan did not show any evidence of kidney stone and your urine did look like you have a urinary tract infection. The rest your blood work did not show any acute findings today.[facility] Work Phone: Hospital Discharge instructions* Attachments The following attachments cannot be sent through Care Everywhere. * Head injury in adults ([place]ican) * Laceration Repair With Glue Discharge Instructions ([place]) * Minor contusion ED discharge instructions ([place]) [facility] Work Phone: Reason for referral (narrative)No reason for referral information availableWSumma Health Work Phone: Summary Purpose Family History No Family History Records Found Relationship Condition Age at Onset Recorded Date/T gladis mother Hypertension Unknown Advance Directives No Advanced Directives Records Found Advance Directive Response Recorded Date/ Time Living Will No April 09 7 10:58am Power of Environmental Sampling Technician No April 09 017 10:58am Advance Directive Response Recorded Date/ Time Living Will No April 09 7 9:58am Power of Environmental Sampling Technician No April 09 017 9:58am Advance Directive Response Recorded Date/ Time Living Will Yes July 10 023 6:16pm Power of Environmental Sampling Technician No July 10, 2023 6:16pm Advance Directive Response Recorded Date/ Time Do you have a Healthcare Power of Environmental Sampling Technician? No December 28, 2024 10:54am Chief Complaint and Reason for Visit Chief Complaint LUMBAR STRAIN LUMBAR STRAIN / RX HERE Chief Complaint WEAKNESS Chief Complaint Admit Date SCREENING December 10, 2024 11: 47am r flank pain December 28, 2024 10:15 am Chief Complaint Admit Date SCREENING December 10, 2024 11: 47am r flank pain December 28, 2024 10:15 am MILD DEGEN DISC DISEASE. RX HERE February 192024 8:00am Additional Source Comments INFORMATION SOURCE (unrecogn ized section and content) DATE CREATED AUTHOR 08/28/2020 [facility] ([place]) DATE CREATED AUTHOR AUTHOR'S ORGANIZ ATION 09/10/2021 [facility] DATE CREATED AUTHOR AUTHOR'S ORGANIZ ATION 09/01/2024 [facility] DATE CREATED AUTHOR AUTHOR'S ORGANIZ ATION 04/11/2025 [facility] DATE CREATED AUTHOR AUTHOR'S ORGANIZ ATION 06/21/2025 [facility] Goals (unrecognized section and content) Goals may be documented in a n alternate sectionGoals may be documented in an alternate sectionGoals may be documented in an alternate sectionGoals may be documented in an alternate sectionGoals may be documented in an alternate section No data available for this sectionGoals may be documented in an alternate sectionGoals may be documented in an alternate sectionGoals may be documented in an alternate sectionGoals may be documented in an alternate sectionGoals may be documented in an alternate section Care Teams (unrecognized sec tion and content) Team Status: Active Member Role Status Dates Dr. Braulio Huang MD Family Provider Active Dr. Braulio Huang MD Primary Care Provider Active Team Status: Inactive Member Role Status Dates Dr. Braulio Huang MD Primary Care Provi dionicio, Attending Provider, Referring Provider Active Team Status: Inactive Member Role Status Dates Dr. Braulio Huang MD Primary Care Provider Active Dr. Cindy Larsen MD Attending Provider, Referring P rovider Active Team Status: Active Member Role Status Dates Dr. Braulio Huang MD Primary Care Provider Active Dr. Cindy Larsen MD Attending Provider, Referring P rovider Active Team Status: Inactive Member Role Status Dates Dr. Braulio Huang MD Primary Care Provider Active Dr. Jaxson Pizano DO Emergency Provider Active Team Status: Inactive Member Role Status Dates Dr. Braulio Huang MD Primary Care Provider Active Start: December 01, 2024 End: December 01, 2024 Dr. Braulio Huang MD Attending Provider Active Start: December 01, 2024 End: December 01, 2024 Dr. Braulio Huagn MD Referring Provider Active Start: December 01, 2024 End: December 01, 2024 Team Status: Active Member Role Status Dates Dr. Braulio Huang MD Primary Care Provider Active Team Status: Inactive Member Role Status Dates Dr. Braulio Huang MD Primary Care Provider Active Start: December 10, 2024 End: December 10, 2024 Dr. Braulio Huang MD Attending Provider Active Start: December 10, 2024 End: December 10, 2024 Dr. Braulio Huang MD Referring Provider Active Start: December 10, 2024 End: December 10, 2024 Team Status: Inactive Member Role Status Dates Dr. Braulio Huang MD Primary Care Provider Active Start: December 28, 2024 End: December 28, 2024 Dr. Venancio Fish DO Emergency Provider Active Start: December 28, 2024 End: December 28, 2024 Team Status: Inactive Member Role Status Dates Dr. Braulio Huang MD Primary Care Provider Active Start: December 28, 2024 End: December 28, 2024 Dr. Venancio Fish DO Attending Provider Active Start: December 28, 2024 End: December 28, 2024 Dr. Venancio Fish DO Emergency Provider Active Start: December 28, 2024 End: December 28, 2024 Team Status: Inactive Member Role Status Dates Dr. Braulio Huang MD Primary Care Provider Active Start: January 13, 2025 End: January 13, 2025 Dr. Braluio Huang MD Attending Provider Active Start: January 13, 2025 End: January 13, 2025 Dr. Braulio Huang MD Referring Provider Active Start: January 13, 2025 End: January 13, 2025 Team Status: Active Member Role/Relationship Status Dates Dr. Braulio Huang MD Primary Care Provider Active Team Status: Inactive Member Role/Relationship Status Dates Dr. Braulio Huang MD Primary Care Provider Active Start: December 01, 2024 End: December 01, 2024 Dr. Braulio Huang MD Attending Provider Active Start: December 01, 2024 End: December 01, 2024 Dr. Braulio Huang MD Referring Provider Active Start: December 01, 2024 End: December 01, 2024 Team Status: Inactive Member Role/Relationship Status Dates Dr. Braulio Huang MD Primary Care Provider Active Start: December 10, 2024 End: December 10, 2024 Dr. Braulio Huang MD Attending Provider Active Start: December 10, 2024 End: December 10, 2024 Dr. Braulio Huang MD Referring Provider Active Start: December 10, 2024 End: December 10, 2024 Team Status: Inactive Member Role/Relationship Status Dates Dr. Braulio Huang MD Primary Care Provider Active Start: December 28, 2024 End: December 28, 2024 Dr. Venancio Fish DO Attending Provider Active Start: December 28, 2024 End: December 28, 2024 Dr. Venancio Fish DO Emergency Provider Active Start: December 28, 2024 End: December 28, 2024 Team Status: Inactive Member Role/Relationship Status Dates Dr. Braulio Huang MD Primary Care Provider Active Start: January 13, 2025 End: January 13, 2025 Dr. Braulio Huang MD Attending Provider Active Start: January 13, 2025 End: January 13, 2025 Dr. Braulio Huang MD Referring Provider Active Start: January 13, 2025 End: January 13, 2025 Team Status: Inactive Member Role/Relationship Status Dates Dr. Braulio Huang MD Primary Care Provider Active Start: February 19, 2025 End: February 19, 2025 Dr. Braulio Huang MD Attending Provider Active Start: February 19, 2025 End: February 19, 2025 Dr. Braulio Huang MD Referring Provider Active Start: February 19, 2025 End: February 19, 2025 Team Status: Inactive Member Role/Relationship Status Dates Dr. Braulio Huang MD Primary Care Provider Active Start: March 23, 2025 End: March 23, 2025 Dr. Braulio Huang MD Attending Provider Active Start: March 23, 2025 End: March 23, 2025 Health Science Instructor Relationship Specialty Start Date End Date Braulio Huang MD [address] [place] [address] PCP - General Family Medicine 04/07/25 Reason for Visit (unrecogniz ed section and content) Reason Comments Fall Patient presents aft er tripping over curb and believes she hit her L forehead on door. Patient denies LOC/thinners, has a 1 cm laceration and edema to L eyebrow. Scheduled Active and Recently Administ ered Medications (unrecognized section and content) Medication Order 04/05/2025 04/06/2025 04/07/2025 acetaminophen (Tylenol) tablet 650 mg (COMPLETED) 650 mg, oral, Once, On Sun04/07/25 at 1235, For 1 dose, If ordered PRN for pain, nurse is permitted to administer this medication for higher pain scores based on patient preference? Yes 1257 (Given - Provid er: Abi Mondragon RN) FOR RECORDS PERTAINING TO PATIENTS WHO ARE OR HAVE BEEN ENROLLED IN A CHEMICAL DEPENDENCY/SUBSTANCEABUSE PROGRAM, SOME INFORMATION MAY BE OMITTED. This clinical summary was aggregated from multiple sources. Caution should be exercised in using it in the provision of clinical care. This summary normalizes information from multiple sources, and as a consequence, information in this document may materially change the coding, format and clinical context of patient data. In addition, data may be omitted in some cases. CLINICAL DECISIONS SHOULD BE BASED ON THE PRIMARY CLINICAL RECORDS. [employer] provides no warranty or guarantee of the accuracy or completeness of information in this document.
== END | disposition home or self-care (01) ==
LOC: MTLAB 15:26
PROVIDERS: PCP Family Medicine; Visit Provider Family Medicine
DX: R35.0 Frequency of micturition (principal)
CPT/HCPCS: 87086; 87088